=== PATIENT | female | born 1995 | race Two or more races ===

== ENCOUNTER 2020-04-18 17:28 | Outpatient (REF) | payer OTHER, SELFPAY | END 2020-04-18 17:29 | disposition home or self-care (01) | LOC: HO.LAB 17:28 | PROVIDERS: Visit Provider Internal Medicine | DX: Z20.828 Contact with and (suspected) exposure to other viral communicable diseases (principal) | CPT/HCPCS: C9803; U0003 ==

== ENCOUNTER → 2020-06-30 10:26 | Outpatient (BNVA) | payer OTHER, SELFPAY | PROVIDERS: PCP Internal Medicine; Visit Provider Obstetrics & Gynecology | DX: O36.4XX0 Maternal care for intrauterine death, not applicable or unspecified (principal) | CPT/HCPCS: 99212 ==

== ENCOUNTER 2020-09-01 14:40 | Outpatient (REF) | payer OTHER, SELFPAY ==
[2020-09-02 06:11] LABS: CT PCR NOT DETECTED (Not Detect.); NG PCR NOT DETECTED (Not Detect.)
[2020-09-03 21:57] LABS: HPV mRNA E6/E7 rflx Not Detected (Not Detected)
== END 2020-09-01 14:41 | disposition home or self-care (01) ==
LOC: HO.LAB 14:40
PROVIDERS: PCP Internal Medicine; Visit Provider Obstetrics & Gynecology
DX: Z01.419 Encounter for gynecological examination (general) (routine) without abnormal findings (principal); Z11.51 Encounter for screening for human papillomavirus (HPV); Z11.3 Encounter for screening for infections with a predominantly sexual mode of transmission; Z20.2 Contact with and (suspected) exposure to infections with a predominantly sexual mode of transmission
CPT/HCPCS: 87491; 87591; 87624; 88142

== ENCOUNTER → 2020-09-30 14:31 | Outpatient (BNVA) | payer OTHER, SELFPAY | PROVIDERS: PCP Internal Medicine; Visit Provider Obstetrics & Gynecology ==

== ENCOUNTER → 2020-11-20 08:49 | Outpatient (BNVA) | payer OTHER, SELFPAY | PROVIDERS: PCP Internal Medicine; Visit Provider Obstetrics & Gynecology | DX: O09.291 Supervision of pregnancy with other poor reproductive or obstetric history, first trimester (principal); Z3A.01 Less than 8 weeks gestation of pregnancy | CPT/HCPCS: 99212 ==

== ENCOUNTER 2020-12-01 12:55 | Outpatient (REF) | payer OTHER, SELFPAY ==
--- NOTE | ~2020-12-01 | US_ITS ---
EXAMINATION: US PELVIS AND TRANSVAGINAL. CLINICAL INFORMATION: Unsure LMP. No quants available. COMPARISON: None TECHNIQUE: Transabdominal and transvaginal imaging of pelvis is performed. FINDINGS: The uterus is anteverted with an intrauterine gestational sac visualized. The sac measures 0.64 cm corresponding to 5 weeks and 2 days. There is no visualization of pole or yolk sac. Mean sac diameter of 0.64 cm corresponding to 5 weeks and 2 days. The right ovary measures 2.8 x 2.5 x 2.8 cm with a small corpus luteum cyst measuring 2.2 x 1.9 x 1.9 cm. The left ovary measures 3.0 x 1.6 x 1.8 cm. There is a small amount of free fluid in the cul-de-sac. US/US OB pelvic and transvaginal IMPRESSION: Intrauterine gestational sac. No pole, yolk sac or heart beat seen. The gestational sac measurement corresponds to 5 weeks 2 days. Recommend follow up in 2-3 weeks.
== END 2020-12-01 12:56 | disposition home or self-care (01) ==
LOC: HO.US 12:55
PROVIDERS: Visit Provider Obstetrics & Gynecology
DX: Z34.91 Encounter for supervision of normal pregnancy, unspecified, first trimester (principal)
CPT/HCPCS: 76801; 76817

== ENCOUNTER 2020-12-02 14:41 | Outpatient (REF) | payer OTHER, SELFPAY ==
[2020-12-02 16:23] LABS: HCG Quantitative 2174 mIU/mL
[2020-12-03 06:01] LABS: CT PCR NOT DETECTED (Not Detect.); NG PCR NOT DETECTED (Not Detect.)
[2020-12-03 09:37] LABS: BV Int Neg Control Negative (Negative); BV Int Pos Control Positive (Positive)
== END 2020-12-02 14:42 | disposition home or self-care (01) ==
LOC: HO.LAB 14:41
PROVIDERS: PCP Internal Medicine; Visit Provider Advanced Practice Midwife
DX: Z11.3 Encounter for screening for infections with a predominantly sexual mode of transmission (principal); O20.0 Threatened abortion; Z20.2 Contact with and (suspected) exposure to infections with a predominantly sexual mode of transmission; N93.9 Abnormal uterine and vaginal bleeding, unspecified
CPT/HCPCS: 36415; 84702; 86850; 86900; 86901; 87480; 87491; 87510; 87591; 87660; 99212

== ENCOUNTER 2020-12-05 10:58 | Outpatient (REF) | payer OTHER, SELFPAY ==
[2020-12-05 11:56] LABS: HCG Quantitative 398 mIU/mL
== END 2020-12-05 10:59 | disposition home or self-care (01) ==
LOC: HO.LAB 10:58
PROVIDERS: PCP Internal Medicine; Visit Provider Advanced Practice Midwife
DX: O20.0 Threatened abortion (principal)
CPT/HCPCS: 36415; 84702

== ENCOUNTER → 2020-12-08 09:06 | Outpatient (BNVA) | payer OTHER, SELFPAY | PROVIDERS: PCP Internal Medicine; Visit Provider Obstetrics & Gynecology | DX: O03.9 Complete or unspecified spontaneous abortion without complication (principal) | CPT/HCPCS: 99212 ==

== ENCOUNTER 2020-12-15 11:32 | Outpatient (REF) | payer OTHER, SELFPAY ==
[2020-12-15 13:43] LABS: HCG Quantitative 14 mIU/mL
== END 2020-12-15 11:33 | disposition home or self-care (01) ==
LOC: HO.LAB 11:32
PROVIDERS: PCP Internal Medicine; Visit Provider Obstetrics & Gynecology
DX: O03.9 Complete or unspecified spontaneous abortion without complication (principal)
CPT/HCPCS: 36415; 84702

== ENCOUNTER 2020-12-18 11:14 | Outpatient (REF) | payer OTHER, SELFPAY ==
[2020-12-18 12:24] LABS: HCG Quantitative 7 mIU/mL
[2020-12-19 14:16] LABS: PTT (LAC) Screen 35 sec (< OR = 40)
== END 2020-12-18 11:15 | disposition home or self-care (01) ==
LOC: HO.LAB 11:14
PROVIDERS: Obstetrics & Gynecology; PCP Internal Medicine; Visit Provider Internal Medicine
DX: O03.9 Complete or unspecified spontaneous abortion without complication (principal); Z87.59 Personal history of other complications of pregnancy, childbirth and the puerperium
CPT/HCPCS: 36415; 84702; 85597; 85613; 85730

== ENCOUNTER 2021-03-10 10:18 | Emergency (ER) | payer OTHER, SELFPAY ==
[2021-03-10 10:56] VITALS: BP 117/80; PULSE 74; RESP 14; O2SAT 100; BMI 25.4
--- NOTE | 2021-03-10 12:25 | ED_ITS ---
HPI - Nausea/Vomiting/Diarrhea General Chief complaint: Nausea/Vomiting/Diarrhea Stated complaint: nausea Time Seen by Provider: 03/10/21 12:22 Source: patient and family (Significant other's) Mode of arrival: ambulatory Limitations: no limitations History of Present Illness HPI Narrative: 25-year-old female otherwise healthy came in for evaluation of possible food poisoning. The patient ate outside with 2 other people 2 days ago shortly after she ate she started to have nausea, nonbloody watery diarrhea, and upper abdominal discomfort, symptoms is been constant for the past 2 days, nobody else sick after the ate the same food, no recent travel, no fever, no chills. Related Data Home Medications Medication Instructions Recorded Confirmed prenat.vits,yury,[id number] 1 tab PO DAILY 09/01/20 01/14/21 Previous Rx's Medication Instructions Recorded escitalopram oxalate 10 mg tablet 10 mg PO DAILY 90 Days #90 tab 12/18/20 Allergies Allergy/AdvReac Type Severity Reaction Status Date / Time pollen Allergy Intermediate itchy Verified 01/14/21 09:14 eyes, runny nose Review of Systems Review of Systems: All other systems are reviewed and are negative Constitutional: Reports as per HPI and Reports no additional constitutional complaints Eyes: Reports as per HPI and Reports no additional eye complaints Reports system reviewed and no additional complaints, except as documented Cardiovascular: Reports as per HPI and Reports no additional cardiovascular complaints Respiratory: Reports as per HPI and Reports no additional respiratory complaints Gastrointestinal: Reports as per HPI and Reports no additional gastrointestinal complaints Genitourinary: Reports no additional female genitourinary complaints Musculoskeletal: Reports no additional musculoskeletal complaints Skin/Breast: Reports system reviewed and no additional complaints, except as docu Psychiatric: Reports no additional psychiatric complaints Endocrine: Reports no additional endocrine complaints Hematologic/Lymphatic: Reports no additional hematologic/lymphatic complaints Allergic/Immunologic: Reports no additional allergic/immunologic complaints Reports system reviewed and no additional complaints, except as documented and Reports Abnormal speech present [facility] Past Medical History Medical History demise VENANCIO (generalized anxiety disorder) History of multiple miscarriages Insomnia Moderate major depression, single episode Threatened Surgical History H/O dilation and curettage Family History Family History Mother Fibromyalgia Father No problems noted. Social History Social History Housing: Apartment Alcohol intake: never Patient Tobacco Use Status: Never used Tobacco e-Cigarette/Vaping Use: Never Used Second Hand Smoke Exposure: No Use of substances other than those prescribed or required for medical reasons: No Advance Directives: No Patient : No service: No Current occupational status: employed Current occupational exposures/hazards: No Physical Exam Vital Signs: Vital Signs: Last Vital Signs Pulse 74 03/10/21 10:56 Resp 14 03/10/21 10:56 BP 117/80 03/10/21 10:56 Pulse Ox 100 03/10/21 10:56 Body Mass Index 25.4 Vital signs have been reviewed as appeared to be correct. Blood pressure normal. Heart rate normal. Respiration rate normal. Temperature normal. Oxygen saturation normal. Appearance: Alert. Oriented X3. No acute distress. Head: Normal external exam. Normocephalic. Atraumatic. No [place] signs noted. No raccoon eyes noted Eyes: PERRLA. EOMI. Conjunctiva and sclera normal. Eyelids normal. ENT: TM's Normal. Pharynx normal. Uvula midline. Moist mucous membranes. No trismus noted. No drooling noted. No muffled voice noted. Neck: Normal inspection. Neck supple. FROM. No adenopathy. Thyroid Normal. No meningeal signs. No neck mass noted. CVS: Normal heart rate and rhythm. Heart sound normal. No murmurs noted. Pulses normal throughout. Respiratory: No respiratory distress. Painless inspiration. Breath sounds normal. No wheezes/rales/rhonchi noted. Chest nontender. No accessory muscle usage noted or decreased air movement noted. Abdomen: Soft, mild epigastric tenderness, no rebound tenderness, no guarding. Bowel sounds normal in all 4 quadrants. No distention noted. No organomegaly noted. No visible injury noted. Back: No CVA tenderness. Full range of motion noted. Skin: Skin warm and dry. Normal skin color. Normal skin turgor. No rashes/lesions/lacerations noted. Extremities: No lower extremity edema. Extremities exhibit normal range of motion. Extremities nontender. Neuro: Oriented X 3. Cranial nerve exam: II-XII are grossly intact No motor deficit. No sensory deficit. Reflexes normal. Course Course Course Narrative: Assessment and plan. 25-year-old female came in for evaluation of abdominal pain and nausea, vomiting, diarrhea after eating outside for possible food poisoning. Patient received IV fluids/Zofran/Pepcid/GI cocktail, patient now feels better, able to tolerate p.o. intake. MDM - Nausea/Vomiting/Diarrhea Medical Records Attestation: I reviewed the patient's medical records. Lab Data Attestation: I reviewed the patient's lab results. Result diagrams: 03/10/21 12:47 03/10/21 12:47 Labs: Lab Results 03/10/21 03/10/21 03/10/21 Range/Units 12:47 12:47 12:47 WBC 6.7 (4.8-10.8) X10*3/uL RBC 5.02 (4.20-5.50) X10*6/uL Hgb 14.9 (12.0-16.0) g/dl Hct 44.4 (37.0-47.0) % MCV 88.4 (80.0-98.0) fL MCH 29.7 (27.0-33.0) pg MCHC 33.6 (31.0-35.0) g/dl RDW 11.8 (11.0-16.0) % Plt Count 181 (160-400) X10*3/uL MPV 9.9 (9.4-12.3) fL Immature Gran % (Auto) 0.3 (0.0-0.4) % Neut % (Auto) 70.0 (45-73) % Lymph % (Auto) 24.1 (20-40) % [place] % (Auto) 4.6 (2-11) % Eos % (Auto) 0.7 (0-4) % Baso % (Auto) 0.3 (0-2) % Lymph # (Auto) 1.6 (1.2-4.9) X10*3/uL [place] # (Auto) 0.3 (0.1-1.2) X10*3/uL Eos # (Auto) 0.1 (0.0-0.4) X10*3/uL Baso # (Auto) 0.0 (0.0-0.2) X10*3/uL Abs Immat Gran (auto) 0.02 (0.00-0.03) X10*3/uL Absolute Neuts (auto) 4.7 (2.0-8.3) x10*3/uL Absolute Nucleated RBC 0.000 (0.0-0.012) X10*3/uL Nucleated RBC % (auto) 0.0 (0.0-0.2) /100WBC Smear Tech's Comments VERIFIED Sodium 139 (135-145) mmol/L Potassium 4.3 (3.3-5.1) mmol/L Chloride 105 (96-108) mmol/L Carbon Dioxide 22 (22-29) mmol/L Anion Gap 16 (12-20) BUN 8 L (9-16) mg/dL Creatinine 0.79 (0.5-1.4) mg/dL Estim Creat Clear Calc 91.4 Estimated GFR > 60 Random Glucose 91 (60-115) mg/dL Calcium 9.8 (8.4-10.2) mg/dL Total Bilirubin 1.2 H (0.0-1.0) mg/dL Direct Bilirubin 0.4 (0.0-0.5) mg/dL AST 20 (5-31) U/L ALT 19 (0-31) U/L Alkaline Phosphatase 69 (39-117) U/L Total Protein 8.1 H (6.5-8.0) g/dL Albumin 4.8 (3.5-5.0) g/dL Lipase 20 (8-78) U/L Urine Color Urine Appearance Urine pH (5.0-8.0) Ur Specific [place] (1.005-1.025) Urine Protein (NEG-TRACE) MG/DL Urine Glucose (UA) (NEG) MG/DL Urine Ketones (NEG) MG/DL Urine Blood (NEG) Urine Nitrite (NEG) Ur Leukocyte Esterase (NEG) COVID-19 (AXEL) Negative (Negative) COVID-19 Clin Com See Note 03/10/21 Range/Units 12:47 WBC (4.8-10.8) X10*3/uL RBC (4.20-5.50) X10*6/uL Hgb (12.0-16.0) g/dl Hct (37.0-47.0) % MCV (80.0-98.0) fL MCH (27.0-33.0) pg MCHC (31.0-35.0) g/dl RDW (11.0-16.0) % Plt Count (160-400) X10*3/uL MPV (9.4-12.3) fL Immature Gran % (Auto) (0.0-0.4) % Neut % (Auto) (45-73) % Lymph % (Auto) (20-40) % [place] % (Auto) (2-11) % Eos % (Auto) (0-4) % Baso % (Auto) (0-2) % Lymph # (Auto) (1.2-4.9) X10*3/uL [place] # (Auto) (0.1-1.2) X10*3/uL Eos # (Auto) (0.0-0.4) X10*3/uL Baso # (Auto) (0.0-0.2) X10*3/uL Abs Immat Gran (auto) (0.00-0.03) X10*3/uL Absolute Neuts (auto) (2.0-8.3) x10*3/uL Absolute Nucleated RBC (0.0-0.012) X10*3/uL Nucleated RBC % (auto) (0.0-0.2) /100WBC Smear Tech's Comments Sodium (135-145) mmol/L Potassium (3.3-5.1) mmol/L Chloride (96-108) mmol/L Carbon Dioxide (22-29) mmol/L Anion Gap (12-20) BUN (9-16) mg/dL Creatinine (0.5-1.4) mg/dL Estim Creat Clear Calc Estimated GFR Random Glucose (60-115) mg/dL Calcium (8.4-10.2) mg/dL Total Bilirubin (0.0-1.0) mg/dL Direct Bilirubin (0.0-0.5) mg/dL AST (5-31) U/L ALT (0-31) U/L Alkaline Phosphatase (39-117) U/L Total Protein (6.5-8.0) g/dL Albumin (3.5-5.0) g/dL Lipase (8-78) U/L Urine Color YELLOW Urine Appearance CLEAR Urine pH 7.5 (5.0-8.0) Ur Specific [place] 1.010 (1.005-1.025) Urine Protein NEG (NEG-TRACE) MG/DL Urine Glucose (UA) NEG (NEG) MG/DL Urine Ketones NEG (NEG) MG/DL Urine Blood NEG (NEG) Urine Nitrite NEG (NEG) Ur Leukocyte Esterase NEG (NEG) COVID-19 (AXEL) (Negative) COVID-19 Clin Com Discharge Plan Discharge Clinical Impression: Gastroenteritis Patient Disposition: Home, Self-Care Instructions: Gastroenteritis (ED) Prescriptions: No Action escitalopram oxalate 10 mg tablet 10 mg PO DAILY 90 Days Qty: 90 RF: 1 prenat.vits,yury,[id number] Tablet 1 tab PO DAILY RF: 0 Referrals: Amelie Jacobsen MD [Primary Care Provider] - 2 days Stand Alone Forms: Work/School Release
[2021-03-10 12:59] LABS: Imm Gran Abs Auto 0.02 X10*3/uL (0.00-0.03); Imm Gran Pct Auto 0.3 % (0.0-0.4); MANUAL DIFF FLAG SCAN; Monocytes Percent Auto 4.6 % (2-11); PLT CLUMP 1; SCAN SMEAR FLAG 1
[2021-03-10 13:01] LABS: Basophils Percent Auto 0.3 % (0-2); Eosinophils Absolute Auto 0.1 X10*3/uL (0.0-0.4); Eosinophils Percent Auto 0.7 % (0-4); Hematocrit 44.4 % (37.0-47.0); Hemoglobin 14.9 g/dl (12.0-16.0); Lymphocytes Absolute Auto 1.6 X10*3/uL (1.2-4.9); Lymphocytes Percent Auto 24.1 % (20-40); Mean Corpuscular HGB Conc 33.6 g/dl (31.0-35.0); Mean Corpuscular Hemoglobin 29.7 pg (27.0-33.0); Mean Corpuscular Volume 88.4 fL (80.0-98.0); Mean Platelet Volume 9.9 fL (9.4-12.3); Monocytes Absolute Auto 0.3 X10*3/uL (0.1-1.2); Neutrophils Absolute Auto 4.7 x10*3/uL (2.0-8.3); Platelet Count 181 X10*3/uL (160-400); Red Blood Count 5.02 X10*6/uL (4.20-5.50); Red Cell Distribution Width 11.8 % (11.0-16.0); White Blood Count 6.7 X10*3/uL (4.8-10.8)
[2021-03-10 13:20] LABS: Appearance Urine CLEAR; Color Urine YELLOW; Glucose Urine UA NEG (NEG); Leukocyte Esterase Urine NEG (NEG); Nitrite Urine NEG (NEG); PH 7.5 (5.0-8.0); Urine Blood NEG (NEG); Urine Ketones NEG (NEG); Urine Protein NEG (NEG-TRACE)
[2021-03-10 13:23] LABS: SLIDE REVIEW VERIFIED
[2021-03-10] MEDS: Lidocaine HCl Viscous 2 % 15 ML SOLUTION MUCOUS MEM (13:27)
[2021-03-10] MEDS: 0.9 % Sodium Chloride 1,000 ML 999 ML IVCONT (13:27)
[2021-03-10] MEDS: Famotidine/PF 20 MG/2 ML VIAL IVPUSH (13:27)
[2021-03-10] MEDS: Magnesium Hydrox/Alum Hydrox 30 ML ORAL.SUSP PO (13:27)
[2021-03-10 13:38] LABS: Alanine Aminotransferase 19 U/L (0-31); Albumin Level 4.8 g/dL (3.5-5.0); Alkaline Phosphatase 69 U/L (39-117); Anion Gap 16 (12-20); Aspartate Amino Transferase 20 U/L (5-31); Bilirubin Direct 0.4 mg/dL (0.0-0.5); Bilirubin Total 1.2 mg/dL (0.0-1.0); Blood Urea Nitrogen 8 mg/dL (9-16); Calcium 9.8 mg/dL (8.4-10.2); Carbon Dioxide 22 mmol/L (22-29); Chloride 105 mmol/L (96-108); Creatinine Clr Calc Pharmacy 91.4; Estimated Glomerular Filt Rate > 60; Glucose Random 91 mg/dL (60-115); Lipase 20 U/L (8-78); Potassium 4.3 mmol/L (3.3-5.1); Sodium 139 mmol/L (135-145); Total Protein 8.1 g/dL (6.5-8.0)
[2021-03-10 13:47] LABS: COVID-19 Test Negative (Negative); IDNOW Serial# 9DD0AD1C
== END 2021-03-10 14:35 | disposition home or self-care (01) ==
PROVIDERS: Emergency Provider Emergency Medicine; PCP Internal Medicine
DX: K52.9 Noninfective gastroenteritis and colitis, unspecified (principal); R11.2 Nausea with vomiting, unspecified; R10.10 Upper abdominal pain, unspecified; Z20.822 Contact with and (suspected) exposure to COVID-19
CPT/HCPCS: 36415; 80048; 80076; 81003; 83690; 85025; 87635; 96361; 96374; 99284

== ENCOUNTER 2021-04-02 12:51 | Outpatient (REF) | payer OTHER, SELFPAY ==
[2021-04-02 14:08] LABS: Thyroid Stimulating Hormone 0.52 uIU/mL (0.32-4.0); Vitamin D 25-OH Total 30.3 ng/mL (>30)
== END 2021-04-02 12:52 | disposition home or self-care (01) ==
LOC: HO.LAB 12:51
PROVIDERS: PCP Internal Medicine; Visit Provider Nurse Practitioner Family
DX: R53.83 Other fatigue (principal)
CPT/HCPCS: 36415; 82306; 84443

== ENCOUNTER 2021-06-02 12:19 | Emergency (ER) | payer OTHER, SELFPAY | END 2021-06-02 13:22 | disposition left against medical advice (07) | PROVIDERS: Emergency Provider Emergency Medicine; PCP Internal Medicine | DX: F41.9 Anxiety disorder, unspecified (principal); R11.0 Nausea ==

== ENCOUNTER → 2021-06-03 11:38 | Outpatient (REF) | payer OTHER, SELFPAY ==
--- NOTE | 2021-06-03 11:48 | ECG_ITS ---
Test Reason : r07.89 Blood Pressure : / mmHG Vent. Rate : 086 BPM Atrial Rate : 086 BPM P-R Int : 106 ms QRS Dur : 078 ms QT Int : 370 ms P-R-T Axes : 002 078 058 degrees QTc Int : 442 ms Sinus rhythm with short [place] Otherwise normal ECG No previous ECGs available Referred By: Kita Menendez Electronically Signed By:EDWARD DEGROOT
== END ==
LOC: HO.CARD 11:38
PROVIDERS: PCP Internal Medicine; Visit Provider Nurse Practitioner Family
DX: R07.89 Other chest pain (principal)
CPT/HCPCS: 93005

== ENCOUNTER 2021-07-01 07:38 | Emergency (ER) | payer OTHER, SELFPAY ==
--- NOTE | 2021-07-01 07:41 | ED_ITS ---
HPI - Anxiety General Chief Complaint: Anxiety Stated Complaint: anxiety/shakiness/chest tightness Time Seen by Provider: 07/01/21 07:40 Source: patient and old records reviewed Mode of arrival: ambulatory Limitations: no limitations History of Present Illness HPI narrative: has therapist on setraline 25mg daily started 06/09 complaint: anxiety Onset (ago): week(s) Symptoms: palpitations and sense of impending doom Severity: severe Quality: worsening Place: home History of similar episodes: Yes Provoking factors: emotional stress and other (very difficult last two years with IUFD and miscarriages) Relieving factors: nothing Exacerbating factors: thinking about event Associated symptoms: palpitations Related Data Previous Rx's Medication Instructions Recorded omeprazole 20 mg capsule,delayed 20 mg PO DAILY 28 Days #28 cap 05/19/21 release hydroxyzine HCl 10 mg tablet 10 mg PO BEDTIME #7 tab 06/09/21 sertraline 25 mg tablet (Zoloft) 25 mg PO DAILY #30 tab 06/09/21 lorazepam 0.5 mg tablet (Ativan) 0.5 mg PO BEDTIME PRN #7 tab 07/01/21 Allergies Allergy/AdvReac Type Severity Reaction Status Date / Time pollen Allergy Intermediate itchy Verified 06/03/21 10:43 eyes, runny nose Review of Systems Review of Systems: Constitutional : No Fever, No Chills ENT/Mouth : No Ear Pain, No Nasal Congestion, No sore throat Eyes: No Eye Pain, No Swelling, No Redness Cardiovascular : No Chest Pain, No SOB, pos palpitations Respiratory : No Cough, No Sputum, No Dyspnea Gastrointestinal : No Nausea, No Vomiting, No Diarrhea, No Hematochezia, No Melena Genitourinary : No Dysuria, No Urinary Frequency, No Hematuria Musculoskeletal : No Myalgias Skin : No Skin Lesions, No rash Neuro : No Weakness, No Numbness, No Paresthesias, No Dizziness, No Headache Psych : positive Anxiety, positive Depression, no SI/HI Heme/Lymph: No Lymphadenopathy Endocrine : No Polyuria, No Polydipsia All other systems reviewed and are negative [facility] Past Medical History Attestation statement: The following information was validated with the patient. Medical History Chronic diarrhea demise VENANCIO (generalized anxiety disorder) History of multiple miscarriages Insomnia Moderate major depression, single episode Threatened Surgical History H/O dilation and curettage Family History Family History Mother Fibromyalgia Father No problems noted. Social History Social History Housing: Apartment Alcohol intake: never Patient Tobacco Use Status: Never used Tobacco e-Cigarette/Vaping Use: Never Used Second Hand Smoke Exposure: No Advance Directives: No Advance Directives Information Provided: No service: No Current occupational status: employed Current occupational exposures/hazards: No Cognitive needs: No Hearing needs: No Vision needs: No Physical Exam Vital Signs: Vital Signs: Last Vital Signs Pulse 90 07/01/21 07:46 Resp 18 07/01/21 07:46 BP 127/87 07/01/21 07:46 Pulse Ox 100 07/01/21 07:46 BMI result Body Mass Index 22.1 Appearance: Alert. Oriented X3. No acute distress. Tearful and anxious but using breathing coping techniques Eyes: Pupils equal, round and reactive to light. ENT: Pharynx normal. Neck: Normal inspection. Neck supple. CVS: Normal heart rate and rhythm. Pulses normal. Respiratory: No respiratory distress. Breath sounds normal. Abdomen: Soft and nontender. Skin: Skin warm and dry. Normal skin color. Normal skin turgor. Extremities: No lower extremity edema. No calf ttp Neuro: Oriented X 3. No motor deficit. No sensory deficit. CN 2-12 intact Course Course Course Narrative: outpatient partial program 07/07 11am MDM - Anxiety MDM Narrative Medical decision making narrative: 25 yo female with hx of VENANCIO who has had pretty significant issues the last two years including IUFD at 20 weeks, subsequent miscarriage she does have a therapist but she notes her anxiety is so severe it is affecting every aspect of her life and she is scared to leave her home at times. She is on sertraline 25mg daily since 06/09. At this time given the severity of her anxiety and that she is doing the right things on an outpatient basis I will offer CARE team for possible inpatient vs partial program. She denies SI. Lab Data Labs: Lab Results 07/01/21 07/01/2107/01/22 Range/Units 07:57 07:57 07:58 Urine Test NEGATIVE (NEGATIVE) Urine Opiates Screen Not Detected (Not Detect) Urine Fentanyl Screen Not Detected (Not Detect) Ur Barbiturates Screen Not Detected (Not Detect) Ur Phencyclidine Scrn Not Detected (Not Detect) Ur Amphetamines Screen Not Detected (Not Detect) U Benzodiazepines Scrn Not Detected (Not Detect) Urine Cocaine Screen Not Detected (Not Detect) U Marijuana (THC) Screen Not Detected (Not Detect) COVID-19 (AXEL) Negative (Negative) COVID-19 Clin Com See Note Discharge Plan Discharge Clinical Impression: VENANCIO (generalized anxiety disorder) Patient Disposition: Home, Self-Care Instructions: Anxiety (ED) Additional Instructions: return to ED for any worsening symptoms or concerns appointment partial program 07/07 11am Prescriptions: New lorazepam [Ativan] 0.5 mg tablet 0.5 mg PO BEDTIME PRN (Reason: anxiety) Qty: 7 0RF No Action omeprazole 20 mg capsule,delayed release(DR/EC) 20 mg PO DAILY 28 Days Qty: 28 3RF sertraline [Zoloft] 25 mg tablet 25 mg PO DAILY Qty: 30 0RF hydroxyzine HCl 10 mg tablet 10 mg PO BEDTIME Qty: 7 0RF Stand Alone Forms: Work/School Release
[2021-07-01 07:46] VITALS: BP 127/87; PULSE 90; RESP 18; O2SAT 100; BMI 22.1
--- NOTE | 2021-07-01 07:59 | PC.NURSE ---
Pt comes in with complaints of anxiety and impending doom, pt is &Ox3, clearly anxious. Sees a therapist regularly, plan for PO atarax and care consult, denies any feelings of self harm at this time. Call hammer within reach. Will continue to monitor.
[2021-07-01 08:07] LABS: UPreg QC Valid YES; Urine Pregnancy NEGATIVE (NEGATIVE)
[2021-07-01 08:20] LABS: COVID-19 Test Negative (Negative); IDNOW Serial# 16C4AD1C
[2021-07-01 08:23] LABS: Amphetamine Screen Urine Not Detected (Not Detect); Barbiturates, Urine Not Detected (Not Detect); Benzodiazepines Screen Urine Not Detected (Not Detect); Cannabinoid Screen Urine Not Detected (Not Detect); Cocaine Screen Urine Not Detected (Not Detect); Fentanyl, urine Not Detected (Not Detect); Opiate Screen Urine Not Detected (Not Detect); Phencyclidine Screen Urine Not Detected (Not Detect)
[2021-07-01] MEDS: hydrOXYzine HCL 10 MG TABLET PO (08:24)
--- NOTE | 2021-07-01 11:15 | PC.NURSE ---
Pt remains anxious, saw care team. Given snacks as pt states she is nauseas. Call hammer within place, will continue to monitor.
[2021-07-01] MEDS: LORazepam 0.5 MG TABLET PO (11:32)
--- NOTE | 2021-07-01 13:04 | MHC.CARE ---
0900 CARE Team met with patient in main ED bed 20 who presented to the ED this morning with severe anxiety. She was tearful and trembling as she described how debilitated she has become due to anxiety symptoms and frequent panic attacks, is struggling at work, isolating, becoming depressed, unable to sleep and always afraid of when she will have another panic attack and said she feels that she will never be the same. Patient has suffered the loss of two pregnancies in the last two years, does have a supportive family and a therapist but said those things are only helpful to a point. Was recently prescribed 10mg of Atarax but has been too afraid to take it not knowing how it would make her feel, did receive that dose here with some effect. Did not appear to be med seeking but was given 1mg of Ativan which made her feel sleepy. Patient's boyfriend at bedside appeared supportive, he said that he often helps by talking her through breathing techniques. Provided some psychoeducation regarding anxiety and panic attacks which was well received. 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 Partial Hospitalized is recommended, discussed the hours and the expectations of the program which patient wants to try, she is willing to take leave from he job and said she will do anything necessary to get her life back and feel like herself. Appointment for PHP intake is 07/07/21 at 11:00 am
== END 2021-07-01 12:38 | disposition home or self-care (01) ==
PROVIDERS: Emergency Provider Emergency Medicine; PCP Internal Medicine
DX: F41.1 Generalized anxiety disorder (principal); R00.2 Palpitations; Z20.822 Contact with and (suspected) exposure to COVID-19; N96 Recurrent pregnancy loss; Z87.59 Personal history of other complications of pregnancy, childbirth and the puerperium; Z79.899 Other long term (current) drug therapy
CPT/HCPCS: 80307; 81025; 87635; 99284

== ENCOUNTER 2021-07-07 11:24 | Outpatient (RCR) | payer OTHER, SELFPAY | END 2021-07-07 12:40 | disposition left against medical advice (07) | LOC: HO.PHPA 11:24 | PROVIDERS: Visit Provider Psychiatry & Neurology Psychiatry | DX: F32.A Depression, unspecified (principal) ==

== ENCOUNTER 2021-07-09 14:38 | Outpatient (REF) | payer OTHER, SELFPAY ==
[2021-07-09 16:14] LABS: MANUAL DIFF FLAG NO
[2021-07-09 16:33] LABS: Basophils Percent Auto 0.5 % (0-2); Eosinophils Absolute Auto 0.1 X10*3/uL (0.0-0.4); Eosinophils Percent Auto 0.7 % (0-4); Hematocrit 41.4 % (37.0-47.0); Hemoglobin 13.7 g/dl (12.0-16.0); Imm Gran Abs Auto 0.02 X10*3/uL (0.00-0.03); Imm Gran Pct Auto 0.2 % (0.0-0.4); Lymphocytes Percent Auto 25.2 % (20-40); Mean Corpuscular HGB Conc 33.1 g/dl (31.0-35.0); Mean Corpuscular Hemoglobin 29.5 pg (27.0-33.0); Mean Corpuscular Volume 89.2 fL (80.0-98.0); Mean Platelet Volume 9.5 fL (9.4-12.3); Monocytes Absolute Auto 0.5 X10*3/uL (0.1-1.2); Monocytes Percent Auto 5.9 % (2-11); Neutrophils Absolute Auto 5.5 x10*3/uL (2.0-8.3); Neutrophils Percent Auto 67.5 % (45-73); Platelet Count 352 X10*3/uL (160-400); Red Blood Count 4.64 X10*6/uL (4.20-5.50); Red Cell Distribution Width 11.9 % (11.0-16.0); White Blood Count 8.1 X10*3/uL (4.8-10.8)
[2021-07-09 17:08] LABS: Alanine Aminotransferase 22 U/L (0-31); Albumin Level 4.6 g/dL (3.5-5.0); Alkaline Phosphatase 81 U/L (39-117); Anion Gap 11 (12-20); Aspartate Amino Transferase 21 U/L (5-31); Bilirubin Total 0.8 mg/dL (0.0-1.0); Blood Urea Nitrogen 13 mg/dL (9-16); Carbon Dioxide 28 mmol/L (22-29); Chloride 102 mmol/L (96-108); Estimated Glomerular Filt Rate > 60; Glucose Random 88 mg/dL (60-115); Sodium 136 mmol/L (135-145); Total Protein 7.6 g/dL (6.5-8.0)
== END 2021-07-09 14:39 | disposition home or self-care (01) ==
LOC: HO.LAB 14:38
PROVIDERS: PCP Internal Medicine; Referring Provider Nurse Practitioner Family; Visit Provider Nurse Practitioner
DX: K21.9 Gastro-esophageal reflux disease without esophagitis (principal); R10.13 Epigastric pain; R19.7 Diarrhea, unspecified
CPT/HCPCS: 36415; 80053; 85025; 99202

== ENCOUNTER 2021-07-14 14:47 | Outpatient (REF) | payer OTHER, SELFPAY ==
--- NOTE | ~2021-07-14 | XR_ITS ---
EXAMINATION: XR ABDOMEN KUB CLINICAL INDICATION: Calculus of kidney COMPARISON: None TECHNIQUE: AP view of the abdomen. FINDINGS: There is scattered stool and gas seen throughout the colon without any distention. No radiopaque renal calculi. No organomegaly. No gross bony abnormality. XR/XR KUB IMPRESSION: No radiopaque urolith visualized. Mild constipation.
== END 2021-07-14 14:48 | disposition home or self-care (01) ==
LOC: HO.XRAY 14:47
PROVIDERS: PCP Internal Medicine; Visit Provider Internal Medicine
DX: N20.0 Calculus of kidney (principal)
CPT/HCPCS: 74018

== ENCOUNTER 2021-07-27 12:06 | Outpatient (REF) | payer OTHER, SELFPAY | END 2021-07-27 12:07 | disposition home or self-care (01) | LOC: HO.LNP 12:06 | PROVIDERS: Visit Provider Nurse Practitioner | DX: K21.9 Gastro-esophageal reflux disease without esophagitis (principal); R10.13 Epigastric pain | CPT/HCPCS: 87338 ==

== ENCOUNTER 2021-08-04 07:56 | Outpatient (REF) | payer OTHER, SELFPAY ==
--- NOTE | ~2021-08-04 | US_ITS ---
EXAMINATION: US ABDOMEN COMPLETE CLINICAL INFORMATION: Gastroesophageal reflux disease without esophagitis. COMPARISON: XR abdomen KUB 07/14/2021. TECHNIQUE: Real-time imaging of the abdominal viscera. FINDINGS: PANCREAS: Normal. ABDOMINAL AORTA: The proximal, mid, and distal segments are normal in caliber. INFERIOR VENA CAVA: Visualized portions are normal. LIVER: Normal. The liver is normal in size. The liver contour is normal. Parenchymal echogenicity is normal. No focal hepatic lesion. There is no intrahepatic biliary duct dilatation seen. GALLBLADDER: Normal. The gallbladder is physiologically distended without evidence of stones, sludge, polyps, wall thickening or pericholecystic fluid. COMMON BILE DUCT: Normal in caliber measuring 0.3 cm in diameter. RIGHT KIDNEY: Normal. No hydronephrosis. No renal calculi or focal parenchymal lesions. The kidney measures 10.0 cm in maximum dimension. LEFT KIDNEY: Normal. No hydronephrosis. No renal calculi or focal parenchymal lesions. The kidney measures 10.0 cm in maximum dimension. SPLEEN: Normal. The spleen measures 9.2 cm in maximum dimension. FREE FLUID: None. US/US abdomen complete IMPRESSION: Unremarkable complete abdomen ultrasound.
== END 2021-08-04 07:57 | disposition home or self-care (01) ==
LOC: HO.US 07:56
PROVIDERS: PCP Internal Medicine; Visit Provider Nurse Practitioner
DX: K21.9 Gastro-esophageal reflux disease without esophagitis (principal); R10.13 Epigastric pain
CPT/HCPCS: 76700

== ENCOUNTER 2021-09-23 13:17 | Outpatient (REF) | payer OTHER, SELFPAY ==
[2021-09-23 14:50] LABS: HCG Quantitative 7695 mIU/mL
== END 2021-09-23 13:18 | disposition home or self-care (01) ==
LOC: HO.LAB 13:17
PROVIDERS: PCP Internal Medicine; Visit Provider Advanced Practice Midwife
DX: N92.6 Irregular menstruation, unspecified (principal); N96 Recurrent pregnancy loss
CPT/HCPCS: 36415; 81025; 84702; 99212

== ENCOUNTER 2021-10-08 11:26 | Outpatient (REF) | payer OTHER, SELFPAY ==
--- NOTE | ~2021-10-08 | US_ITS ---
EXAMINATION: US OBSTETRICAL ULTRASOUND CLINICAL INFORMATION: Irregular menstruation. Check size and dates. COMPARISON: None. LMP: 08/18/2021. Gestational age by maternal dates is by dates 7 weeks 2 days. Estimated date of delivery by maternal dates is 05/25/2022. TECHNIQUE: Transabdominal first trimester OB ultrasound FINDINGS: There is a single intrauterine gestational sac with visible yolk sac, embryo/fetus, and cardiac activity. There is no significant subchorionic hemorrhage or hematoma. HR: 158 beats per minute. CRL (crown rump length): 1 cm (7 weeks 1 day +/- 4 days). CATALINA (estimated date of delivery): 05/26/2022 +/- 4 days. MATERNAL ADNEXA: The right maternal ovary not seen. The left maternal ovary measures 3 x 2.5 x 2.5 cm. There is no significant maternal adnexal mass. No maternal pelvic ascites. US/US OB <= 14 weeks fetus IMPRESSION: 1. Single intrauterine gestation with ultrasound gestational age of 7 weeks 1 day +/- 4 days. 2. Estimated date of delivery is 05/26/2022 +/- 4 days. 3. No maternal adnexal mass or pelvic ascites.
== END 2021-10-08 11:27 | disposition home or self-care (01) ==
LOC: HO.HMGCX 11:26
PROVIDERS: PCP Internal Medicine; Visit Provider Advanced Practice Midwife
DX: N92.6 Irregular menstruation, unspecified (principal)
CPT/HCPCS: 76801

== ENCOUNTER 2022-06-21 17:12 | Outpatient (REF) | payer OTHER, SELFPAY ==
[2022-06-21 17:30] LABS: MANUAL DIFF FLAG NO
[2022-06-21 17:54] LABS: Basophils Percent Auto 0.4 % (0-2); Eosinophils Absolute Auto 0.1 X10*3/uL (0.0-0.4); Eosinophils Percent Auto 0.8 % (0-4); Hematocrit 38.7 % (37.0-47.0); Hemoglobin 13.4 g/dl (12.0-16.0); Imm Gran Abs Auto 0.02 X10*3/uL (0.00-0.03); Imm Gran Pct Auto 0.2 % (0.0-0.4); Lymphocytes Absolute Auto 2.4 X10*3/uL (1.2-4.9); Lymphocytes Percent Auto 24.5 % (20-40); Mean Corpuscular HGB Conc 34.6 g/dl (31.0-35.0); Mean Corpuscular Hemoglobin 30.7 pg (27.0-33.0); Mean Corpuscular Volume 88.6 fL (80.0-98.0); Mean Platelet Volume 9.2 fL (9.4-12.3); Monocytes Absolute Auto 0.7 X10*3/uL (0.1-1.2); Monocytes Percent Auto 7.1 % (2-11); Neutrophils Absolute Auto 6.6 x10*3/uL (2.0-8.3); Platelet Count 352 X10*3/uL (160-400); Red Blood Count 4.37 X10*6/uL (4.20-5.50); Red Cell Distribution Width 11.7 % (11.0-16.0); White Blood Count 9.8 X10*3/uL (4.8-10.8)
[2022-06-21 18:37] LABS: Iron 83 mcg/dL (30-160); Percent Iron Saturation 27 % (15-50); Total Iron Binding Capacity 304 mcg/dL (228-428); Unsaturated Iron Binding 221 ug/dL
[2022-06-21 18:52] LABS: Thyroid Stimulating Hormone 0.41 uIU/mL (0.32-4.0)
== END 2022-06-21 17:13 | disposition home or self-care (01) ==
LOC: HO.LAB 17:12
PROVIDERS: PCP Internal Medicine; Visit Provider Internal Medicine
DX: R53.83 Other fatigue (principal); E55.9 Vitamin D deficiency, unspecified; D64.9 Anemia, unspecified
CPT/HCPCS: 36415; 82306; 83540; 84443; 85025

== ENCOUNTER → 2022-08-13 14:45 | Outpatient (BNVA) | payer OTHER, SELFPAY | PROVIDERS: PCP Internal Medicine; Visit Provider Nurse Practitioner | DX: R10.13 Epigastric pain (principal); K21.9 Gastro-esophageal reflux disease without esophagitis | CPT/HCPCS: 99212 ==

== ENCOUNTER 2022-10-12 13:09 | Outpatient (REF) | payer OTHER, SELFPAY ==
[2022-10-12 13:22] LABS: MANUAL DIFF FLAG NO
[2022-10-12 14:26] LABS: Basophils Percent Auto 0.4 % (0-2); Eosinophils Percent Auto 0.3 % (0-4); Hematocrit 39.5 % (37.0-47.0); Imm Gran Abs Auto 0.02 X10*3/uL (0.00-0.03); Imm Gran Pct Auto 0.3 % (0.0-0.4); Lymphocytes Absolute Auto 1.8 X10*3/uL (1.2-4.9); Lymphocytes Percent Auto 23.4 % (20-40); Mean Corpuscular HGB Conc 32.9 g/dl (31.0-35.0); Mean Corpuscular Hemoglobin 28.5 pg (27.0-33.0); Mean Corpuscular Volume 86.6 fL (80.0-98.0); Mean Platelet Volume 10.1 fL (9.4-12.3); Monocytes Absolute Auto 0.5 X10*3/uL (0.1-1.2); Monocytes Percent Auto 6.8 % (2-11); Neutrophils Absolute Auto 5.3 x10*3/uL (2.0-8.3); Neutrophils Percent Auto 68.8 % (45-73); Platelet Count 293 X10*3/uL (160-400); Red Blood Count 4.56 X10*6/uL (4.20-5.50); Red Cell Distribution Width 12.2 % (11.0-16.0); White Blood Count 7.8 X10*3/uL (4.8-10.8)
[2022-10-12 14:53] LABS: Alanine Aminotransferase 12 U/L (0-31); Albumin Level 4.4 g/dL (3.5-5.0); Alkaline Phosphatase 80 U/L (39-117); Anion Gap 13 (12-20); Aspartate Amino Transferase 15 U/L (5-31); Bilirubin Total 1.4 mg/dL (0.0-1.0); Blood Urea Nitrogen 11 mg/dL (9-16); Calcium 9.5 mg/dL (8.4-10.2); Carbon Dioxide 23 mmol/L (22-29); Chloride 107 mmol/L (96-108); Estimated Glomerular Filt Rate > 60; Glucose Fasting 76 mg/dL (60-99); Potassium 3.6 mmol/L (3.3-5.1); Sodium 139 mmol/L (135-145); Total Protein 7.4 g/dL (6.5-8.0)
== END 2022-10-12 13:10 | disposition home or self-care (01) ==
LOC: HO.LAB 13:09
PROVIDERS: PCP Internal Medicine; Visit Provider Internal Medicine
DX: R42 Dizziness and giddiness (principal)
CPT/HCPCS: 36415; 80053; 85025

== ENCOUNTER 2022-12-21 14:22 | Outpatient (AMB) | payer OTHER, SELFPAY ==
--- NOTE | 2022-12-21 14:25 | MHC.PC.OV ---
Vital Signs 12/21/22 14:26 Height 5 ft 2 in Weight 139 lb BMI 25.4 BP 118/70 Blood Pressure Location Lt brachial Position Sitting Intake Visit Reasons: Annual Exam Intake Note: Patient here for an annual physical exam [employer] Buffer Required: No Accompanied by: Child Allergies pollen extracts Allergy (Intermediate, Verified 12/21/22 14:47) Itchy Eyes, runny nose Medication List - Last Reconciled 12/21/22 by Amelie Valentino MD famotidine (Pepcid) 40 mg PO BEDTIME fluticasone propionate 50 mcg/actuation 1 spray intranasal BID PNV,calcium 12-lnns-efrwy acid 27 mg iron- 1 mg ( Vitamins Plus Low Iron) 1 tab PO DAILY Tobacco use date assessed: 06/21/22 Dental Screening Dental Screen Date: 12/21/22 Did you have a dental visit in the last 12 months?: Yes Did you have a dental problem in the last 6 months where you did not have access to dental care?: No Was dental information given to patient?: Patient has dentist HPI HPI Comments History of Present Illness Details This is a 27-year-old female that comes for her physical exam. Last Pap smear was 2020 was normal. No chest pain or shortness of breath. [facility] Medical History demise VENANCIO (generalized anxiety disorder) History of multiple miscarriages Insomnia Mild recurrent major depression Physical exam Threatened Surgical History H/O dilation and curettage Family History (Updated 12/21/22 @ 14:51 by Amelie Valentino MD) Mother Fibromyalgia Breast cancer, Onset Age: 44 Father No problems noted. Social History Housing: Apartment Alcohol intake: current Alcohol intake frequency: holidays/special occasions only Patient Tobacco Use Status: Never used Tobacco e-Cigarette/Vaping Use: Never Used Second Hand Smoke Exposure: No service: No Current occupational status: unemployed Cognitive needs: No Hearing needs: No Vision needs: No Female Reproductive History Menstrual Age of Menarche: 9 Questionnaire Thrive Questionnaire Date Thrive assessed: 06/21/22 VENANCIO-7 AMB Questionnaire VENANCIO-7 Date VENANCIO - 7 assessed: 06/21/22 Source: Developed by Drs. Jian Medina, Valentina Chung, Michael Du and colleagues, with an educational crys from [employer]. Review of Systems Const All systems reviewed & are unremarkable except as noted in HPI and below Eyes Reports no additional complaints, Denies change in vision and Denies other visual disturbances Card Denies chest pain at rest, Denies chest pain with activity, Denies edema, Denies irregular heart rhythm, Denies claudication, Denies dyspnea, Denies dyspnea on exertion, Denies orthopnea, Denies paroxysmal nocturnal dyspnea and Denies slow heart rate Resp Denies cough, Denies dyspnea and Denies dyspnea on exertion GI Denies abdominal pain, Denies change in bowel habits, Denies excessive flatus, Denies nausea and Denies vomiting Denies urinary incontinence, Denies urinary hesitancy and Denies urinary urgency Musc Denies abnormal gait, Denies atrophy, Denies deformity and Denies limited range of motion Skin/Breast Denies bleeding lesions, Denies changing lesions and Denies rash Neuro Denies abnormal gait and Denies lack of coordination Physical exam (Primary Care) Vital Signs: Last Vital Signs BP 118/70 12/21/22 14:26 BMI result Body Mass Index 25.4 Tobacco/Smoking Status: Tobacco use Status Tobacco use date assessed 06/21/22 12/21/22 14:31 Patient Tobacco Use Status Never used Tobacco 12/21/22 14:31 e-Cigarette/Vaping Use Never Used 12/21/22 14:31 Thrive Assessment: Date of Thrive Assessment Date Thrive assessed 06/21/22 12/21/22 14:31 Const Orientation/consciousness: patient oriented x3 HENMT Head: Yes normal to inspection, Yes normocephalic and Yes atraumatic Ears: external ears normal Eyes General: appearance normal, both eyes and all related structures Eyelids: Yes eyelids normal Conjunctivae: conjunctivae normal Neck Neck: Yes normal visual inspection and Yes supple Resp Effort & Inspection: normal respiratory effort Auscultation: clear to auscultation bilaterally Cardio Jugular venous distension: no JVD Rate: regular rate Rhythm: regular rhythm Heart sounds: S1 normal heart sound present and S2 normal heart sound present GI Inspection: Yes normal to inspection Palpation (GI): Soft to palpation and nontender Auscultation: normal bowel sounds Skin General skin exam: no rashes or lesions noted Neuro General: patient oriented x3 and no focal motor deficits Extrem General: Yes full ROM Psych Appearance: grossly normal Assessment and Plan Assessment & Plan (1) Physical exam: Code(s): Z00.00 - Encounter for general adult medical examination without abnormal findings Plan: Repeat in a year Coding Level of Care Code Est Pt Prev Care 18-39y(57155) Diagnoses Physical exam Z00.00 Time Spent (min) 32
[2022-12-21 14:26] VITALS: BP 118/70; BMI 25.4
== END 2022-12-21 14:57 | disposition home or self-care (01) ==
PROVIDERS: PCP Internal Medicine; Visit Provider Internal Medicine
DX: Z00.00 Encounter for general adult medical examination without abnormal findings (principal)
CPT/HCPCS: 99395

== ENCOUNTER 2023-03-03 10:18 | Outpatient (AMB) | payer OTHER, SELFPAY ==
--- NOTE | 2023-03-03 10:29 | AM.OFFVISNUR ---
Intake Intake Visit Reasons: Flu Shot Allergies pollen extracts Allergy (Intermediate, Verified 12/21/22 14:47) Itchy Eyes, runny nose Office Procedures Flu Questionnaire Does the patient have a severe egg allergy?: No Does the patient have severe life threatening allergies?: No Does the patient have a fever or illness today?: No Has the patient ever had Guillain-[place] Syndrome?: No Has the patient ever had any past reaction to a flu shot?: No Immunizations flu vacc [id number] 6mos up(PF) 60 mcg(15 mcgx4)/0.5 mL IM syringe Performing Provider: Amelie Valentino MD [facility] Administered by: Reanna Martines RN on 03/03/23 10:30 Dose Route Admin Location Dispensed Lot Number Expiration Date NDC Agriculture Consultant 0.5 mL IM Left Deltoid 0.5 mL [id number] 10/30/23 [id number] [employer] VIS Given Date VIS Provided VIS Publication Date 03/03/23 Single Vaccine 20 Eligibility Eligibility Date Funding Source Not [facility] Eligible 03/03/23 Private Coding Assessment & Plan Assessment & Plan Orders: Orders Influenza [id number] Immunization Today Z23 - Encounter for immunization
== END 2023-03-03 10:32 | disposition home or self-care (01) ==
PROVIDERS: PCP Internal Medicine; Visit Provider Internal Medicine
DX: Z23 Encounter for immunization (principal)
CPT/HCPCS: 90471; 90686

== ENCOUNTER 2023-04-08 10:01 | Outpatient (AMB) | payer OTHER, SELFPAY ==
[2023-04-08 10:03] VITALS: BP 116/76; PULSE 84; O2SAT 99; BMI 27.0
--- NOTE | 2023-04-08 10:03 | A.OFFPC_ITS ---
Vital Signs 04/08/23 10:03 Height 5 ft 2 in Weight 147 lb 6 oz BMI 27.0 BP 116/76 Blood Pressure Location Lt brachial Position Sitting Pulse 84 Pulse Source Pulse Oximeter Pulse Oximetry (%) 99 Oxygen Delivery Method Room Air Intake Visit Reasons: Had A Shower Fall Intake Note: pt is here due to a shower fall yesterday, pt landed on her back left side and also elbow. Data Integration Analyst Required: No Accompanied by: Self / Same As Patient Allergies pollen extracts Allergy (Intermediate, Verified 04/08/23 10:07) Itchy Eyes, runny nose Tobacco use date assessed: 06/21/22 Dental Screening Dental Screen Date: 04/08/23 Did you have a dental visit in the last 12 months?: Yes Did you have a dental problem in the last 6 months where you did not have access to dental care?: No Was dental information given to patient?: Patient has dentist HPI HPI Comments History of Present Illness Details 27-year-old female past medical history significant for generalized anxiety disorder, depression, GERD and dizziness. Patient presents today for fall last night when she was going to take a shower. Patient reports she was going to get in the shower for which had her if it's bathtub in at and she was reaching above her head on her tippy-toes to open the window that was slightly outer reach patient reports she believes she may be got off balance on her left leg or like her left leg gave out and she fell in the bathtub, sliding down scraping her left thoracic back on the bathtub. Patient does have noted shear injury to left thoracic region of back. No surrounding ecchymosis. Patient denies any pain on inspiration denies any tenderness on palpation of ribs. Patient did also hit her left elbow patient does have small superficial scrape to left elbow with surrounding ecchymoses. Patient does have full range of motion of elbow denies any pain on palpation to elbow or upper and lower arm. Patient denies loss of consciousness or head strike. Patient reports ongoing thoracic back pain for years states she has spoken to PCP about this in the past was offered referral to physical therapy however she declined at that time. Patients concerned about her kidneys, CMP and US ordered. Patient now agreeable to proceed with physical therapy, order entered. [facility] Medical History demise VENANCIO (generalized anxiety disorder) History of multiple miscarriages Insomnia Mild recurrent major depression Physical exam Threatened Surgical History H/O dilation and curettage Family History Mother Fibromyalgia Breast cancer, Onset Age: 44 Father No problems noted. Social History Housing: Apartment Alcohol intake: current Alcohol intake frequency: holidays/special occasions only Patient Tobacco Use Status: Never used Tobacco e-Cigarette/Vaping Use: Never Used Second Hand Smoke Exposure: No service: No Current occupational status: unemployed Cognitive needs: No Hearing needs: No Vision needs: No Female Reproductive History Menstrual Age of Menarche: 9 Questionnaire Thrive Questionnaire Date Thrive assessed: 06/21/22 VENANCIO-7 AMB Questionnaire VENANCIO-7 Date VENANCIO - 7 assessed: 06/21/22 Source: Developed by Drs. Jian Medina, Valentina Chung, Michael Du and colleagues, with an educational crys from [employer]. Review of Systems Const Denies chills, Denies fatigue, Denies fever(s) and Denies poor appetite Eyes Denies no additional complaints ENT Reports Normal hearing present Card Denies chest pain, Denies syncope, Denies rapid heart rate and Denies dyspnea Resp Denies cough and Denies dyspnea GI Denies change in stool character, Denies constipation, Denies diarrhea, Denies nausea and Denies vomiting Denies urinary frequency, Denies dysuria and Denies urinary urgency Neuro Reports Normal hearing present, Denies confusion and Denies syncope Psych Denies confusion Endo Denies fatigue Physical exam (Primary Care) Vital Signs: Last Vital Signs Pulse 84 04/08/23 10:03 BP 116/76 04/08/23 10:03 Pulse Ox 99 04/08/23 10:03 Oxygen Delivery Method Room Air 04/08/23 10:03 BMI result Body Mass Index 27.0 Tobacco/Smoking Status: Tobacco use Status Tobacco use date assessed 06/21/22 04/08/23 10:06 Patient Tobacco Use Status Never used Tobacco 04/08/23 10:06 e-Cigarette/Vaping Use Never Used 04/08/23 10:06 Thrive Assessment: Date of Thrive Assessment Date Thrive assessed 06/21/22 04/08/23 10:06 Const General: No confusion Orientation/consciousness: No confusion HENMT Head: Yes normocephalic and Yes atraumatic Eyes Conjunctivae: conjunctivae normal Chest Chest palpation & inspection: normal inspection of the chest Resp Effort & Inspection: normal respiratory effort Auscultation: clear to auscultation bilaterally, no crackles, no rhonchi and no wheezes Cardio Rate: regular rate Rhythm: regular rhythm Heart sounds: S1 normal heart sound present and S2 normal heart sound present GI Inspection: Yes normal to inspection Neuro General: No confusion Cranial nerves: Yes Normal hearing present Extrem General: No edema Assessment and Plan Assessment & Plan (1) Fall: Code(s): W19.XXXA - Unspecified fall, initial encounter Plan: Given patient felt like her leg gave out on her and she is unsure if it was due to weakness will draw labs CBC and CMP, urinalysis to evaluate for any electrolyte abnormalities, anemia or UTI. Patient prescribed ibuprofen 600 mg every 8 hours as needed for pain. Patient advised to take medication with food to prevent GI upset. (2) Contusion, elbow: Code(s): S50.00XA - Contusion of unspecified elbow, initial encounter Plan: Patient has small abrasion noted to left elbow with surrounding ecchymosis patient does have full range of motion, no tenderness on palpation to elbow or left arm no obvious deformities noted. Take ibuprofen as needed for pain Patient advised to call office with any new or worsening symptoms. (3) Abrasion of left side of back: Code(s): S20.412A - Abrasion of left back wall of thorax, initial encounter Plan: Patient advise can apply [id number]-[id number] Neosporin. Ibuprofen sent for pain. Plan Keep scheduled follow-up with PCP or follow-up sooner needed Orders: Orders Comprehensive Met. Panel Today W19.XXXA - Unspecified fall, initial encounter PT Evaluation and Treatment Today M54.6 - Pain in thoracic spine Complete Blood Count Auto Diff Today Z13.0 - Encounter for screening for diseases of the blood and blood-forming organs and certain disorders involving the immune mechanism UA CC w/rflx Micro + Cult Today R30.0 - Dysuria Medications: New ibuprofen 600 mg PO Q8H PRN 30 tabs 0RF pain Coding Level of Care Code Est Pt Level 3 (83935) Diagnoses Fall W19.XXXA Contusion, elbow S50.00XA Abrasion of left side of back S20.412A
== END 2023-04-08 10:45 | disposition home or self-care (01) ==
PROVIDERS: PCP Internal Medicine; Visit Provider Nurse Practitioner Family
DX: S20.412A Abrasion of left back wall of thorax, initial encounter (principal); S50.02XA Contusion of left elbow, initial encounter; W19.XXXA Unspecified fall, initial encounter
CPT/HCPCS: 99213

== ENCOUNTER 2023-04-08 10:31 | Outpatient (REF) | payer OTHER, SELFPAY ==
[2023-04-08 10:48] LABS: MANUAL DIFF FLAG NO
[2023-04-08 11:07] LABS: Basophils Absolute Auto 0.1 X10*3/uL (0.0-0.2); Basophils Percent Auto 0.6 % (0-2); Eosinophils Absolute Auto 0.1 X10*3/uL (0.0-0.4); Hematocrit 39.2 % (37.0-47.0); Imm Gran Abs Auto 0.03 X10*3/uL (0.00-0.03); Imm Gran Pct Auto 0.4 % (0.0-0.4); Lymphocytes Absolute Auto 2.3 X10*3/uL (1.2-4.9); Lymphocytes Percent Auto 28.4 % (20-40); Mean Corpuscular HGB Conc 33.2 g/dl (31.0-35.0); Mean Corpuscular Hemoglobin 29.1 pg (27.0-33.0); Mean Corpuscular Volume 87.9 fL (80.0-98.0); Mean Platelet Volume 9.5 fL (9.4-12.3); Monocytes Absolute Auto 0.6 X10*3/uL (0.1-1.2); Monocytes Percent Auto 7.2 % (2-11); Neutrophils Percent Auto 62.4 % (45-73); Platelet Count 314 X10*3/uL (160-400); Red Blood Count 4.46 X10*6/uL (4.20-5.50); Red Cell Distribution Width 11.9 % (11.0-16.0)
[2023-04-08 11:07] LABS: Appearance Urine Clear; Color Urine Yellow; Glucose Urine UA Negative (Negative); Leukocyte Esterase Urine Negative (Negative); Nitrite Urine Negative (Negative); Specific Gravity - Urine >= 1.030 (1.005-1.025); Urine Blood Negative (Negative); Urine Ketones Negative (Negative); Urine Protein Negative (Neg-Trace)
[2023-04-08 11:50] LABS: Alanine Aminotransferase 15 U/L (0-31); Albumin Level 4.5 g/dL (3.5-5.0); Alkaline Phosphatase 86 U/L (39-117); Anion Gap 10 (12-20); Aspartate Amino Transferase 15 U/L (5-31); Bilirubin Total 0.7 mg/dL (0.0-1.0); Blood Urea Nitrogen 15 mg/dL (9-16); Calcium 9.2 mg/dL (8.4-10.2); Carbon Dioxide 30 mmol/L (22-29); Chloride 105 mmol/L (96-108); Estimated Glomerular Filt Rate > 60; Glucose Random 96 mg/dL (60-115); Potassium 4.1 mmol/L (3.3-5.1); Sodium 141 mmol/L (135-145); Total Protein 7.4 g/dL (6.5-8.0)
== END 2023-04-08 10:32 | disposition home or self-care (01) ==
LOC: HO.LAB 10:31
PROVIDERS: PCP Internal Medicine; Visit Provider Nurse Practitioner Family
DX: R30.0 Dysuria (principal); Z13.0 Encounter for screening for diseases of the blood and blood-forming organs and certain disorders involving the immune mechanism; Z91.81 History of falling
CPT/HCPCS: 36415; 80053; 81003; 85025

== ENCOUNTER 2023-06-27 10:50 | Outpatient (REF) | payer OTHER, SELFPAY ==
[2023-06-27 11:02] LABS: MANUAL DIFF FLAG NO
[2023-06-27 12:04] LABS: Basophils Percent Auto 0.3 % (0-2); Eosinophils Absolute Auto 0.1 X10*3/uL (0.0-0.4); Eosinophils Percent Auto 0.7 % (0-4); Hematocrit 41.1 % (37.0-47.0); Hemoglobin 13.8 g/dl (12.0-16.0); Imm Gran Abs Auto 0.04 X10*3/uL (0.00-0.03); Imm Gran Pct Auto 0.5 % (0.0-0.4); Lymphocytes Absolute Auto 1.4 X10*3/uL (1.2-4.9); Lymphocytes Percent Auto 16.3 % (20-40); Mean Corpuscular HGB Conc 33.6 g/dl (31.0-35.0); Mean Corpuscular Hemoglobin 29.4 pg (27.0-33.0); Mean Corpuscular Volume 87.4 fL (80.0-98.0); Mean Platelet Volume 9.8 fL (9.4-12.3); Monocytes Absolute Auto 0.5 X10*3/uL (0.1-1.2); Monocytes Percent Auto 5.3 % (2-11); Neutrophils Absolute Auto 6.7 x10*3/uL (2.0-8.3); Neutrophils Percent Auto 76.9 % (45-73); Platelet Count 364 X10*3/uL (160-400); Red Cell Distribution Width 11.8 % (11.0-16.0); White Blood Count 8.7 X10*3/uL (4.8-10.8)
[2023-06-27 13:00] LABS: Alanine Aminotransferase 18 U/L (0-31); Albumin Level 4.6 g/dL (3.5-5.0); Alkaline Phosphatase 86 U/L (39-117); Anion Gap 12 (12-20); Aspartate Amino Transferase 20 U/L (5-31); Bilirubin Total 0.6 mg/dL (0.0-1.0); Blood Urea Nitrogen 12 mg/dL (9-16); Calcium 9.9 mg/dL (8.4-10.2); Carbon Dioxide 28 mmol/L (22-29); Chloride 104 mmol/L (96-108); Estimated Glomerular Filt Rate > 60; Glucose Fasting 88 mg/dL (60-99); Sodium 140 mmol/L (135-145); Total Protein 8.2 g/dL (6.5-8.0)
[2023-06-27 13:17] LABS: Vitamin D 25-OH Total 23.6 ng/mL (>30)
== END 2023-06-27 10:51 | disposition home or self-care (01) ==
LOC: HO.LAB 10:50
PROVIDERS: PCP Internal Medicine; Visit Provider Internal Medicine
DX: E55.9 Vitamin D deficiency, unspecified (principal); R42 Dizziness and giddiness; D64.9 Anemia, unspecified
CPT/HCPCS: 36415; 80053; 82306; 85025

== ENCOUNTER 2023-06-28 11:54 | Outpatient (REF) | payer OTHER, SELFPAY ==
[2023-06-30 11:38] LABS: Prot Elec - Albumin 4.4 g/dL (3.8-4.8); Prot Elec - Alpha1 0.4 g/dL (0.2-0.3); Prot Elec - Alpha2 0.9 g/dL (0.5-0.9); Prot Elec - Beta 1 0.5 g/dL (0.4-0.6); Prot Elec - Beta 2 0.5 g/dL (0.2-0.5); Prot Elec - Total Protein 7.6 g/dL (6.1-8.1)
== END 2023-06-28 11:55 | disposition home or self-care (01) ==
LOC: HO.LAB 11:54
PROVIDERS: PCP Internal Medicine; Visit Provider Internal Medicine
DX: R77.8 Other specified abnormalities of plasma proteins (principal)
CPT/HCPCS: 36415; 84165

== ENCOUNTER 2023-07-05 13:52 | Outpatient (AMB) | payer OTHER, SELFPAY ==
[2023-07-05 13:57] VITALS: BP 113/63; PULSE 78; BMI 26.2
--- NOTE | 2023-07-05 13:57 | MHC.OFFVIS ---
Intake Vital Signs 07/05/23 13:57 Height 5 ft 2 in Weight 143 lb 4.807 oz BMI 26.2 BP 113/63 Blood Pressure Location Rt brachial Position Sitting Pulse 78 Intake Visit Reasons: Follow up GERD Intake Note: Patient presents in office today in follow up of GERD. CC:Patient reports sometimes after eating she feels the food stay too long in her stomach, like she is not digesting her meals properly. She also reports lately having a lot of heartburn and she has been taking the famotidine which per Pt helps with symptoms. Per patient she states she was recently sick with vomits and after that her GI symptoms are worst. Patient also having dizziness, and fatigue. She also reports feeling constipated lately and like the food gets stuck in her throat sometimes. 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 Social History Housing: Apartment Alcohol intake: current Alcohol intake frequency: holidays/special occasions only Patient Tobacco Use Status: Never used Tobacco e-Cigarette/Vaping Use: Never Used Second Hand Smoke Exposure: No service: No Current occupational status: unemployed Cognitive needs: No Hearing needs: No Vision needs: No Female Reproductive History Menstrual Age of Menarche: 9 Coding
--- NOTE | 2023-07-05 14:16 | MHC.OFFVIS ---
Intake Vital Signs 07/05/23 13:57 07/05/23 14:19 Height 5 ft 2 in Weight 143 lb 4.807 oz BMI 26.2 26.2 BP 113/63 Blood Pressure Location Rt brachial Position Sitting Pulse 78 Intake Visit Reasons: Follow up GERD Allergies pollen extracts Allergy (Intermediate, Verified 07/05/23 14:11) Itchy Eyes, runny nose No Known Drug Allergies Allergy (Unknown, Verified 07/05/23 14:11) none HPI Follow up GERD HPI Details Assessment & Plan (1) Epigastric pain: Code(s): R10.13 - Epigastric pain Plan: We review all of the results and I explained that it does not appear that she has gallbladder disease nor does she seem to have an H pylori infection that was driving her epigastric pain. She has been having trouble getting omeprazole and I think this is probably insurance related. Will try prescribing her famotidine twice a day. This also offset any possible diarrheal side effects that could be causing her since this is been on off problem for her. The patient is requesting a 3 month follow-up due to her personal schedule. (2) GERD (gastroesophageal reflux disease): Code(s): K21.9 - Gastro-esophageal reflux disease without esophagitis Medications: New famotidine (Pepcid ) 40 mg PO BEDTIME 3 0 tabs 6RF K21.9 - Gastro-eso phageal reflux dis ease without esoph agitis Discontinued omeprazole Disc ontinued Reason: Doctor's Order 20 mg PO DAILY 90 days PRN 90 caps 0RF heartburn . TODAY'S VISIT She did receive the famotidine which she is taking prn. She feels that certain foods trigger her stomach like greasy or spicy foods, and this is helpful for this. She tells me that at times she has a feeling like her food is not going down but this seems to be when she is constipated, as she only moves her bowels twice a week. She drinks a lot of water, but she does not eat many vegetables or whole greens. Before we consider laxatives I suggest she add a fiber supplement and give her suggestions including Benefiber, Citrucel or fiber gummies. She had a gastroenteritis a couple of weeks ago, and her stomach is still a bit upset from this. She had N/V/D which was going through her sons school. She has been having dizziness and had some labs via her PCP, but only a low vit D and high serum protein. Her anxiety also triggers her stomach problems, so this could be impacting her sleep as well. ROV 6 mos. [facility] Medical History (Updated 07/05/23 @ 14:18 by JOHNATHAN Ambriz) Tiredness Physical exam VENANCIO (generalized anxiety disorder) History of multiple miscarriages Complete Threatened Early stage of History of demise, not currently Well woman exam Mild recurrent major depression Insomnia demise Surgical History H/O dilation and curettage Family History Mother Fibromyalgia Breast cancer, Onset Age: 44 Father No problems noted. Social History Housing: Apartment Alcohol intake: current Alcohol intake frequency: holidays/special occasions only Patient Tobacco Use Status: Never used Tobacco e-Cigarette/Vaping Use: Never Used Second Hand Smoke Exposure: No service: No Current occupational status: unemployed Cognitive needs: No Hearing needs: No Vision needs: No Female Reproductive History Menstrual Age of Menarche: 9 Review of Systems Const Denies fatigue, Denies fever(s), Denies night sweats, Denies poor appetite and Denies weight loss ENT Reports Normal hearing present, Denies dental pain, Denies dysphagia, Reports dizziness, Denies hearing loss, Denies mouth pain, Denies odynophagia, Denies throat swelling, Denies tongue swelling and Reports other (Dentition adequate) Card Reports no additional complaints Resp Reports no additional complaints GI Details: Denies abdominal pain, Denies melena, Denies bloating, Denies hematochezia, Reports constipation, Denies GI cramping, Denies dysphagia, Denies excessive flatus, Denies early satiety, Reports dyspepsia, Reports heartburn, Denies diarrhea, Denies nausea, Denies odynophagia, Denies vomiting and Denies hematemesis Skin/Breast Denies pruritus, Denies lesions, Denies rash and Denies jaundice Neuro Reports Normal hearing present, Denies Abnormal speech present and Reports dizziness Psych Reports anxiety Endo Denies fatigue Aller/Immun Denies throat swelling and Denies tongue swelling Physical Exam Vital Signs: Last Vital Signs Pulse 78 07/05/23 13:57 BP 113/63 07/05/23 13:57 BMI result Body Mass Index 26.2 Const General: cooperative, no acute distress, well developed and well groomed Nutritional Appearance: average body habitus and well nourished Orientation/consciousness: oriented to person, oriented to place and oriented to time Limitations: No language barrier HEENT Head: Yes normocephalic and Yes atraumatic Eyes General: appearance normal, both eyes and all related structures Pupils: Equal, round and reactive pupils present Neck Neck: Yes normal visual inspection and Yes no lymphadenopathy Thyroid: Thyroid normal Resp Effort & Inspection: normal respiratory effort and able to speak in complete sentences Auscultation: clear to auscultation bilaterally Cardio Rate: regular rate Rhythm: regular rhythm Heart sounds: Normal, physiologic split S2 sound present Peripheral pulses: radial pulses present and posterior tibial pulses present GI Inspection: No distended and No Abdominal panniculus present Palpation (GI): Soft to palpation, nontender, no guarding, not rigid and No hepatosplenomegaly present Percussion: Yes normal to percussion Auscultation: normal bowel sounds Rectal Exam - Female: deferred Skin General skin exam: no rashes or lesions noted, turgor normal, skin not dry, no jaundice, No spider nevi and no striae Rashes: no rashes Nails: normal Neuro General: oriented to person, oriented to place and oriented to time Cranial nerves: Yes Equal, round and reactive pupils present and Yes Normal hearing present Speech: No Abnormal speech present Extrem General: Yes normal to inspection, No clubbing, No cyanosis and No edema Psych Appearance: grossly normal and well kempt Mental Status: mental status grossly normal Speech and movement: Normal speech and movement present Affect: normal affect Attitude: cooperative Thought process: Normal thought process present and not confabulating Thought content: Normal thought content present Insight: Limited insight present (Psych) Judgement: Limited judgement present (Psych) Assessment & Plan Assessment & Plan (1) GERD (gastroesophageal reflux disease): Code(s): K21.9 - Gastro-esophageal reflux disease without esophagitis (2) Constipation: Code(s): K59.00 - Constipation, unspecified Plan She did receive the famotidine which she is taking prn. She feels that certain foods trigger her stomach like greasy or spicy foods, and this is helpful for this. She tells me that at times she has a feeling like her food is not going down but this seems to be when she is constipated, as she only moves her bowels twice a week. She drinks a lot of water, but she does not eat many vegetables or whole greens. Before we consider laxatives I suggest she add a fiber supplement and give her suggestions including Benefiber, Citrucel or fiber gummies. She had a gastroenteritis a couple of weeks ago, and her stomach is still a bit upset from this. She had N/V/D which was going through her sons school. She has been having dizziness and had some labs via her PCP, but only a low vit D and high serum protein. Her anxiety also triggers her stomach problems, so this could be impacting her sleep as well. ROV 6 mos. Coding Level of Care Code Est Pt Level 3 (83612) Diagnoses GERD (gastroesophageal reflux disease) K21.9 Constipation K59.00
[2023-07-05 14:19] VITALS: BMI 26.2
== END 2023-07-05 14:48 | disposition home or self-care (01) ==
PROVIDERS: PCP Internal Medicine; Visit Provider Nurse Practitioner
DX: K21.9 Gastro-esophageal reflux disease without esophagitis (principal); K59.00 Constipation, unspecified
CPT/HCPCS: 99213

== ENCOUNTER → 2023-07-05 13:52 | Outpatient (BNVA) | payer OTHER, SELFPAY | PROVIDERS: PCP Internal Medicine; Visit Provider Nurse Practitioner | DX: K21.9 Gastro-esophageal reflux disease without esophagitis (principal); K59.00 Constipation, unspecified | CPT/HCPCS: 99212 ==

== ENCOUNTER 2023-07-21 15:55 | Outpatient (AMB) | payer OTHER, SELFPAY ==
--- NOTE | 2023-07-21 15:55 | MHC.PC.OV ---
Intake Visit Reasons: blood work f/u Intake Note: Blood work follow Telehealth Cfo Controller Required: No Accompanied by: Self / Same As Patient Allergies pollen extracts Allergy (Intermediate, Verified 07/21/23 16:11) Itchy Eyes, runny nose No Known Drug Allergies Allergy (Unknown, Verified 07/21/23 16:11) none Medication List - Last Reconciled 07/21/23 by Amelie Valentino MD cholecalciferol (vitamin D3) 25 mcg PO DAILY 90 days famotidine (Pepcid) 40 mg PO BEDTIME PRN Tobacco use date assessed: 07/21/23 Dental Screening Dental Screen Date: 07/21/23 Did you have a dental visit in the last 12 months?: Yes Did you have a dental problem in the last 6 months where you did not have access to dental care?: No Was dental information given to patient?: Patient has dentist HPI HPI Comments History of Present Illness Details This is a 27-year-old female with mild recurrent major depression, anxiety, GERD and low vitamin-D that has tele health visit by video to discuss the lab results. She had elevated total protein and I ordered SPEP which shows normal total protein with only mild elevation of alpha 1 globulin. She has dizziness and tiredness occasionally. Denies any fever or night sweats. No weight changes. She is trying to get a counselor for her depression and anxiety because she does not want medications. GERD stable with famotidine. On vitamin-D supplements for her low vitamin-D. [facility] Medical History (Updated 07/22/23 @ 13:46 by Amelie Valentino MD) Tiredness Physical exam VENANCIO (generalized anxiety disorder) History of multiple miscarriages Complete Threatened Early stage of History of demise, not currently Well woman exam Mild recurrent major depression Insomnia demise Surgical History H/O dilation and curettage Family History Mother Fibromyalgia Breast cancer, Onset Age: 44 Father No problems noted. Social History Housing: Apartment Alcohol intake: current Alcohol intake frequency: holidays/special occasions only Patient Tobacco Use Status: Never used Tobacco e-Cigarette/Vaping Use: Never Used Second Hand Smoke Exposure: No service: No Current occupational status: employed Current occupational exposures/hazards: No Cognitive needs: No Hearing needs: No Vision needs: No Female Reproductive History Menstrual Age of Menarche: 9 Questionnaire PHQ-9 Over the last 2 weeks, how often have you been bothered by any of the following problems? 1. Little interest or pleasure in doing things: not at all 2. Feeling down, depressed, or hopeless: not at all 3. Trouble falling or staying asleep, or sleeping too much: not at all 4. Feeling tired or having little energy: not at all 5. Poor appetite or overeating: not at all 6. Feeling bad about yourself - or that you are a failure or have let yourself or your family down: not at all 7. Trouble concentrating on things, such as reading the newspaper or watching television: not at all 8. Moving or speaking so slowly that other people could have noticed. Or the opposite - being so fidgety or restless that you have been moving around a lot more than usual: not at all 9. Thoughts that you would be better off or of hurting yourself in some way: not at all Total score: 0 Depression Screening Interpretation: Positive Depression Screening Follow-up: Existing condition Depression Screening Done: Yes 15308 - PHQ-9 Billing: Yes Source: Developed by Drs. Jian Medina, Valentina Chung, Michael Du and colleagues, with an educational crys from [employer]. Thrive Questionnaire Date Thrive assessed: 07/21/23 I am a: Patient What is your living situation today?: I have a steady place to live Within the past 12 months, did the food you bought not last and you didn't have the money to get more?: Never true Within the past 12 months, did you worry whether your food would run out before you got money to buy more?: Never true Do you have trouble paying for medicines?: No Do you have trouble getting transportation to medical appointments?: No Do you have trouble paying your heating and electricity bill?: No Do you have trouble taking care of your child, family member or friend?: No Do you have trouble with day-to-day activities such as bathing, preparing meals, shopping, managing finances, etc.?: No Are you currently unemployed and looking for a job?: No Are you interested in more education?: No Please select the resources that you would like help with: None Currently or been in a relationship where the following occur: no concerns reported THRIVE Score: 0 AUDIT C Alcohol Use Questionnaire (AUDIT-C) 1. How often do you have a drink containing alcohol?: Never Total Score: 0 VENANCIO-7 AMB Questionnaire VENANCIO-7 Date VENANCIO - 7 assessed: 07/21/23 Feeling nervous, anxious, or on edge: 1 = Several days Not being able to stop or control worryin = Not at all Worrying too much about different things: 0 = Not at all Trouble relaxin = Not at all Being so restless that it is hard to sit still: 0 = Not at all Becoming easily annoyed or irritable: 0 = Not at all Feeling afraid as if something awful might happen: 0 = Not at all Total VENANCIO-7 score (0-4 normal; 5-9 mild; 10-14 moderate; 15-21 severe): 1 Source: Developed by Drs. Jian Medina, Valentina Chung, Michael Du and colleagues, with an educational crys from [employer]. VENANCIO-7 Assessment Billing VENANCIO-7 Assessment Tool: VENANCIO-7 Assessment 33515 Review of Systems Const All systems reviewed & are unremarkable except as noted in HPI and below Eyes Reports no additional complaints, Denies change in vision and Denies other visual disturbances Card Denies chest pain at rest, Denies chest pain with activity, Denies edema, Denies irregular heart rhythm, Denies claudication, Denies dyspnea, Denies dyspnea on exertion, Denies orthopnea, Denies paroxysmal nocturnal dyspnea and Denies slow heart rate Resp Denies cough, Denies dyspnea and Denies dyspnea on exertion GI Denies abdominal pain, Denies change in bowel habits, Denies excessive flatus, Denies nausea and Denies vomiting Denies urinary incontinence, Denies urinary hesitancy and Denies urinary urgency Physical exam (Primary Care) Tobacco/Smoking Status: Tobacco use Status Tobacco use date assessed 07/21/23 07/21/23 16:00 Patient Tobacco Use Status Never used Tobacco 07/21/23 16:00 e-Cigarette/Vaping Use Never Used 07/21/23 16:00 PHQ-9: PHQ-9 Score PHQ-9: Total score 0 07/21/23 16:20 Depression Screening Interpretation: Positive Depression Screening Follow-up: Existing condition Thrive Assessment: Date of Thrive Assessment Date Thrive assessed 07/21/23 07/21/23 16:00 Currently or been in a relationship where the following occur: no concerns reported Const Orientation/consciousness: patient oriented x3 Eyes General: appearance normal, both eyes and all related structures Eyelids: Yes eyelids normal Conjunctivae: conjunctivae normal Neuro General: patient oriented x3 Extrem General: Yes full ROM Psych Appearance: grossly normal Telehealth Telehealth Location of provider rendering services: practice address Location of patient: address on file Patient Identification confirmed using: Name, : Yes Telehealth method: video Patient verbally consented to treatment: Yes Patient verbally consented to billing insurance company: Yes Patient informed of any privacy concerns related to visit: Yes Minutes spent on Phone/Video with Pt.: 19 Assessment and Plan Assessment & Plan (1) Mild recurrent major depression: Code(s): F33.0 - Major depressive disorder, recurrent, mild Plan: Continue looking for counseling. (2) VENANCIO (generalized anxiety disorder): Code(s): F41.1 - Generalized anxiety disorder Plan: Continue looking for counseling. (3) GERD (gastroesophageal reflux disease): Code(s): K21.9 - Gastro-esophageal reflux disease without esophagitis Plan: Continue famotidine. (4) Hypovitaminosis D: Code(s): E55.9 - Vitamin D deficiency, unspecified Plan: Continue vitamin-D supplements. Medications: New cetirizine (All Day Allergy (cetirizine)) 10 mg PO DAILY 90 days PRN 90 tabs 0RF allergy symptoms Coding Level of Care Code Est Pt Level 4 (93903) Diagnoses Mild recurrent major depression F33.0 VENANCIO (generalized anxiety disorder) F41.1 GERD (gastroesophageal reflux disease) K21.9 Hypovitaminosis D E55.9 Additional Codes VENANCIO-7 Assessment Billing - VENANCIO-7 Assessment Tool: VENANCIO-7 Assessment 30376 ([id number]) Time Spent (min) 19
== END 2023-07-21 16:38 | disposition home or self-care (01) ==
LOC: HO.HMGH 15:55
PROVIDERS: PCP Internal Medicine; Visit Provider Internal Medicine
DX: F33.0 Major depressive disorder, recurrent, mild (principal); F41.1 Generalized anxiety disorder; K21.9 Gastro-esophageal reflux disease without esophagitis; E55.9 Vitamin D deficiency, unspecified
CPT/HCPCS: 99214

== ENCOUNTER 2023-12-26 15:39 | Outpatient (AMB) | payer OTHER, SELFPAY ==
--- NOTE | 2023-12-26 15:55 | A.OFFPC_ITS ---
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 Required: No Accompanied by: Child Allergies pollen extracts Allergy (Intermediate, Verified 12/26/23 16:06) Itchy Eyes, runny nose No Known Drug Allergies Allergy (Unknown, Verified 12/26/23 16:06) none Medication List - Last Reconciled 12/26/23 by Ameile Valentino MD cetirizine (All Day Allergy (cetirizine)) 10 mg PO DAILY PRN 90 days cholecalciferol (vitamin D3) 25 mcg PO DAILY 90 days famotidine (Pepcid) 40 mg PO BEDTIME PRN Tobacco use date assessed: 07/21/23 Dental Screening Dental Screen Date: 07/21/23 HPI HPI Comments History of Present Illness Details This is a 28-year-old female that comes for her physical exam. Pap smear done 2020 and was normal. Denies any chest pain or shortness on breath. Complains of thoracic spine pain and an x-ray will be order and will be referred to pain management. [facility] [place] Medical History (Updated 12/26/23 @ 19:24 by Amelie Valentino MD) Physical exam Tiredness VENANCIO (generalized anxiety disorder) History of multiple miscarriages Complete Threatened Early stage of History of demise, not currently Well woman exam Mild recurrent major depression Insomnia demise Surgical History H/O dilation and curettage Family History Mother Fibromyalgia Breast cancer, Onset Age: 44 Father No problems noted. Social History Housing: Apartment Alcohol intake: current Alcohol intake frequency: holidays/special occasions only Patient Tobacco Use Status: Never used Tobacco e-Cigarette/Vaping Use: Never Used Second Hand Smoke Exposure: No service: No Current occupational status: employed Current occupational exposures/hazards: No Cognitive needs: No Hearing needs: No Vision needs: No Female Reproductive History Menstrual Age of Menarche: 9 Questionnaire Thrive Questionnaire Date Thrive assessed: 07/21/23 VENANCIO-7 AMB Questionnaire VENANCIO-7 Date VENANCIO - 7 assessed: 07/21/23 Source: Developed by Drs. Jian Medina, Valentina Chung, Michael Du and colleagues, with an educational crys from [employer]. Review of Systems Const All systems reviewed & are unremarkable except as noted in HPI and below Card Denies chest pain at rest, Denies chest pain with activity, Denies edema, Denies irregular heart rhythm, Denies claudication, Denies dyspnea, Denies dyspnea on exertion, Denies orthopnea, Denies paroxysmal nocturnal dyspnea and Denies slow heart rate Resp Denies cough, Denies dyspnea and Denies dyspnea on exertion GI Denies abdominal pain, Denies change in bowel habits, Denies excessive flatus, Denies nausea and Denies vomiting Denies urinary incontinence, Denies urinary hesitancy and Denies urinary urgency Musc Denies abnormal gait, Reports back pain, Denies atrophy, Denies deformity and Denies limited range of motion Skin/Breast Denies bleeding lesions, Denies changing lesions and Denies rash Neuro Denies abnormal gait and Denies lack of coordination Physical exam (Primary Care) Vital Signs: Last Vital Signs BP 118/70 12/26/23 15:58 BMI result Body Mass Index 25.4 Tobacco/Smoking Status: Tobacco use Status Tobacco use date assessed 07/21/23 12/26/23 15:55 Patient Tobacco Use Status Never used Tobacco 12/26/23 15:55 e-Cigarette/Vaping Use Never Used 12/26/23 15:55 Thrive Assessment: Date of Thrive Assessment Date Thrive assessed 07/21/23 12/26/23 15:55 [facility] Head: Yes normal to inspection, Yes normocephalic and Yes atraumatic Ears: external ears normal Eyes General: appearance normal, both eyes and all related structures Eyelids: Yes eyelids normal Conjunctivae: conjunctivae normal Neck Neck: Yes normal visual inspection and Yes supple Resp Effort & Inspection: normal respiratory effort Auscultation: clear to auscultation bilaterally Cardio Jugular venous distension: no JVD Rate: regular rate Rhythm: regular rhythm Heart sounds: S1 normal heart sound present and S2 normal heart sound present GI Inspection: Yes normal to inspection Palpation (GI): Soft to palpation and nontender Auscultation: normal bowel sounds Skin General skin exam: no rashes or lesions noted Neuro General: no focal motor deficits Extrem General: Yes full ROM Psych Appearance: grossly normal Assessment and Plan Assessment & Plan (1) Physical exam: Code(s): Z00.00 - Encounter for general adult medical examination without abnormal findings Plan: Repeat in a year. (2) Thoracic spine pain: Code(s): M54.6 - Pain in thoracic spine Plan: X-ray ordered. Referred to pain management. Orders: Orders XR thoracic spine 2V Today M54.6 - Pain in thoracic spine Lipid Panel Today Z00.00 - Encounter for general adult medical examination without abnormal findings Vitamin B12 and Folate Today E53.8 - Deficiency of other specified B group vitamins, R42 - Dizziness and giddiness Complete Blood Count Auto Diff Today R42 - Dizziness and giddiness Vitamin D 25-OH Total Today E55.9 - Vitamin D deficiency, unspecified Comprehensive Ortley. Panel Fast Today Z00.00 - Encounter for general adult medical examination without abnormal findings Thyroid Stimulating Hormone Today R42 - Dizziness and giddiness Referrals Pain Management Referral M54.6 - Pain in thoracic spine Coding Level of Care Code Est Pt Level 3 (55491) Est Pt Prev Care 18-39y(14502) Diagnoses Physical exam Z00.00 Thoracic spine pain M54.6 Time Spent (min) 33
[2023-12-26 15:58] VITALS: BP 118/70; BMI 25.4
== END 2023-12-26 16:30 | disposition home or self-care (01) ==
PROVIDERS: PCP Internal Medicine; Visit Provider Internal Medicine
DX: Z00.00 Encounter for general adult medical examination without abnormal findings (principal); M54.6 Pain in thoracic spine
CPT/HCPCS: 99213; 99395

== ENCOUNTER 2023-12-29 08:06 | Outpatient (REF) | payer OTHER, SELFPAY ==
--- NOTE | ~2023-12-29 | XR_ITS ---
EXAMINATION: XR THORACIC SPINE CLINICAL INFORMATION: Thoracic spine pain COMPARISON: None available. TECHNIQUE: 3 views of the thoracic spine were obtained. FINDINGS: The visualized thoracic vertebrae are intact with mild lower thoracic levoscoliosis which may be positional. Intervertebral disc spaces are normal. XR/XR thoracic spine 2V IMPRESSION: 1. Normal thoracic spine x-ray. 2. No fracture or dislocation of thoracic spine is seen. Electronically signed by: Carlo Rosales MD 12/29/2023 04:40 PM EDT
[2023-12-29 08:32] LABS: MANUAL DIFF FLAG NO
[2023-12-29 08:52] LABS: Basophils Percent Auto 0.6 % (0-2); Eosinophils Absolute Auto 0.1 X10*3/uL (0.0-0.4); Hematocrit 38.5 % (37.0-47.0); Hemoglobin 13.3 g/dl (12.0-16.0); Imm Gran Abs Auto 0.03 X10*3/uL (0.00-0.03); Imm Gran Pct Auto 0.5 % (0.0-0.4); Lymphocytes Percent Auto 31.5 % (20-40); Mean Corpuscular HGB Conc 34.5 g/dl (31.0-35.0); Mean Corpuscular Hemoglobin 29.5 pg (27.0-33.0); Mean Corpuscular Volume 85.4 fL (80.0-98.0); Mean Platelet Volume 9.4 fL (9.4-12.3); Monocytes Absolute Auto 0.5 X10*3/uL (0.1-1.2); Monocytes Percent Auto 8.5 % (2-11); Neutrophils Absolute Auto 3.6 x10*3/uL (2.0-8.3); Neutrophils Percent Auto 56.9 % (45-73); Platelet Count 310 X10*3/uL (160-400); Red Blood Count 4.51 X10*6/uL (4.20-5.50); White Blood Count 6.4 X10*3/uL (4.8-10.8)
[2023-12-29 09:22] LABS: Alanine Aminotransferase 19 U/L (0-31); Albumin Level 4.4 g/dL (3.5-5.0); Alkaline Phosphatase 80 U/L (39-117); Anion Gap 10 (12-20); Aspartate Amino Transferase 21 U/L (5-31); Bilirubin Total 0.7 mg/dL (0.0-1.0); Blood Urea Nitrogen 17 mg/dL (9-16); Calcium 9.5 mg/dL (8.4-10.2); Carbon Dioxide 26 mmol/L (22-29); Chloride 105 mmol/L (96-108); Cholesterol 146 mg/dL (<200); Estimated Glomerular Filt Rate > 60; Glucose Fasting 86 mg/dL (60-99); HDL Cholesterol 61 mg/dL (>40); LDL Cholesterol Calculated 77 mg/dL (<100); Potassium 4.1 mmol/L (3.3-5.1); Sodium 137 mmol/L (135-145); Total Protein 7.3 g/dL (6.5-8.0); Triglycerides 40 mg/dL (<150)
[2023-12-29 09:38] LABS: Thyroid Stimulating Hormone 1.63 uIU/mL (0.32-4.0); Vitamin D 25-OH Total 31.8 ng/mL (>30)
[2023-12-29 09:52] LABS: Folate 7.7 ng/mL (> or = 4.0); Vitamin B12 440 pg/mL (200-900)
== END 2023-12-29 08:07 | disposition home or self-care (01) ==
LOC: HO.XRAY 08:06
PROVIDERS: PCP Internal Medicine; Visit Provider Internal Medicine
DX: Z00.00 Encounter for general adult medical examination without abnormal findings (principal); E53.8 Deficiency of other specified B group vitamins; R42 Dizziness and giddiness; E55.9 Vitamin D deficiency, unspecified; M54.6 Pain in thoracic spine
CPT/HCPCS: 36415; 72070; 80053; 80061; 82306; 82607; 82746; 84443; 85025

== ENCOUNTER 2024-01-04 14:06 | Outpatient (AMB) | payer OTHER, SELFPAY ==
--- NOTE | 2024-01-04 14:09 | MHC.OFFVIS ---
Vital Signs 01/04/24 14:10 Height 5 ft 2 in Weight 136 lb 10.986 oz BMI 25.0 BP 94/50 L Blood Pressure Location Lt brachial Position Sitting Pulse 79 Intake Visit Reasons: 6 month CIC, GERD Intake Note: Emelina presents in the office as a 6 month follow up for CIC and GERD. CC: She states that she tries to avoid spicy foods - when she does she will have nausea. No abnormal pains in her abdomen. 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 She feels that certain foods trigger her stomach like greasy or spicy foods, and this is helpful for this. She tells me that at times she has a feeling like her food is not going down but this seems to be when she is constipated, as she only moves her bowels twice a week. She drinks a lot of water, but she does not eat many vegetables or whole greens. Before we consider laxatives I suggest she add a fiber supplement and give her suggestions including Benefiber, Citrucel or fiber gummies. She had a gastroenteritis a couple of weeks ago, and her stomach is still a bit upset from this. She had N/V/D which was going through her sons school. She has been having dizziness and had some labs via her PCP, but only a low vit D and high serum protein. Her anxiety also triggers her stomach problems, so this could be impacting her sleep as well. ROV 6 mos. TODAY'S VISIT She is doing well with the famotidine and is drinking Meyer drink that has greens and fiber. With this her GI conditions are well controlled. ROV 6 mos. [facility] Medical History Physical exam Tiredness VENACNIO (generalized anxiety disorder) History of multiple miscarriages Complete Threatened Early stage of History of demise, not currently Well woman exam Mild recurrent major depression Insomnia demise Surgical History H/O dilation and curettage Family History (Updated 01/04/24 @ 14:14 by DAYO Campbell) Mother Fibromyalgia Breast cancer, Onset Age: 44 Father No problems noted. Maternal Grandfather Colon polyps Social History Housing: Apartment Alcohol intake: current Alcohol intake frequency: holidays/special occasions only Patient Tobacco Use Status: Never used Tobacco e-Cigarette/Vaping Use: Never Used Second Hand Smoke Exposure: No service: No Current occupational status: employed Current occupational exposures/hazards: No Cognitive needs: No Hearing needs: No Vision needs: No Female Reproductive History Menstrual Age of Menarche: 9 Review of Systems Const Denies fatigue, Denies fever(s), Denies night sweats, Denies poor appetite and Denies weight loss ENT Reports Normal hearing present, Denies dental pain, Denies dysphagia, Denies hearing loss, Denies mouth pain, Denies odynophagia, Denies throat swelling, Denies tongue swelling and Reports other (Dentition adequate) Card Reports no additional complaints Resp Reports no additional complaints GI Details: Denies abdominal pain, Denies melena, Denies bloating, Denies hematochezia, Reports constipation, Denies GI cramping, Denies dysphagia, Denies excessive flatus, Denies early satiety, Reports heartburn, Denies diarrhea, Denies nausea, Denies odynophagia, Denies vomiting and Denies hematemesis Skin/Breast Denies pruritus, Denies lesions, Denies rash and Denies jaundice Neuro Reports Normal hearing present and Denies Abnormal speech present Endo Denies fatigue Aller/Immun Denies throat swelling and Denies tongue swelling Physical Exam Vital Signs: Last Vital Signs Pulse 79 01/04/24 14:10 BP 94/50 L 01/04/24 14:10 BMI result Body Mass Index 25.0 Const General: cooperative, no acute distress, well developed and well groomed Nutritional Appearance: average body habitus and well nourished Orientation/consciousness: oriented to person, oriented to place and oriented to time Limitations: No language barrier HEENT Head: Yes normocephalic and Yes atraumatic Eyes General: appearance normal, both eyes and all related structures Pupils: Equal, round and reactive pupils present Neck Neck: Yes normal visual inspection and Yes no lymphadenopathy Thyroid: Thyroid normal Resp Effort & Inspection: normal respiratory effort and able to speak in complete sentences Auscultation: clear to auscultation bilaterally Cardio Rate: regular rate Rhythm: regular rhythm Heart sounds: Normal, physiologic split S2 sound present Peripheral pulses: radial pulses present and posterior tibial pulses present GI Inspection: No distended and No Abdominal panniculus present Palpation (GI): Soft to palpation, nontender, no guarding, not rigid and No hepatosplenomegaly present Percussion: Yes normal to percussion Auscultation: normal bowel sounds Rectal Exam - Female: deferred Skin General skin exam: no rashes or lesions noted, turgor normal, skin not dry, no jaundice, No spider nevi and no striae Rashes: no rashes Nails: normal Neuro General: oriented to person, oriented to place and oriented to time Cranial nerves: Yes Equal, round and reactive pupils present and Yes Normal hearing present Speech: No Abnormal speech present Extrem General: Yes normal to inspection, No clubbing, No cyanosis and No edema Psych Appearance: grossly normal and well kempt Mental Status: mental status grossly normal Speech and movement: Normal speech and movement present Affect: normal affect Attitude: cooperative Thought process: Normal thought process present and not confabulating Thought content: Normal thought content present Insight: Good insight present (Psych) Judgement: Good judgement present (Psych) Assessment & Plan Assessment & Plan (1) Constipation: Code(s): K59.00 - Constipation, unspecified Category: Medical (2) Nausea & vomiting: Code(s): R11.2 - Nausea with vomiting, unspecified Category: Medical (3) GERD (gastroesophageal reflux disease): Code(s): K21.9 - Gastro-esophageal reflux disease without esophagitis Category: Medical Plan She is doing well with the famotidine and is drinking Meyer drink that has greens and fiber. With this her GI conditions are well controlled. ROV 6 mos. Medications: New famotidine (Pepcid) 40 mg PO BEDTIME PRN 30 tabs 6RF gerd K21.9 - Gastro-esophageal reflux disease without esophagitis Coding Level of Care Code Est Pt Level 3 (72219) Diagnoses Constipation K59.00 Nausea & vomiting R11.2 GERD (gastroesophageal reflux disease) K21.9
[2024-01-04 14:10] VITALS: BP 94/50; PULSE 79; BMI 25.0
== END 2024-01-04 14:41 | disposition home or self-care (01) ==
PROVIDERS: PCP Internal Medicine; Visit Provider Nurse Practitioner
DX: K59.00 Constipation, unspecified (principal); R11.2 Nausea with vomiting, unspecified; K21.9 Gastro-esophageal reflux disease without esophagitis
CPT/HCPCS: 99213

== ENCOUNTER → 2024-01-04 14:06 | Outpatient (BNVA) | payer OTHER, SELFPAY | PROVIDERS: PCP Internal Medicine; Visit Provider Nurse Practitioner | DX: K59.04 Chronic idiopathic constipation (principal); K21.9 Gastro-esophageal reflux disease without esophagitis; R11.2 Nausea with vomiting, unspecified | CPT/HCPCS: 99212 ==

== ENCOUNTER 2024-02-17 12:56 | Outpatient (AMB) | payer OTHER, SELFPAY ==
[2024-02-17 13:05] VITALS: BP 116/76; PULSE 98; RESP 16; O2SAT 98; BMI 25.9
--- NOTE | 2024-02-17 13:05 | MHC.OFFVIS ---
Vital Signs 02/17/24 13:05 Height 5 ft 2 in Weight 141 lb 8 oz BMI 25.9 BP 116/76 Blood Pressure Location Lt brachial Position Sitting Respiration 16 Pulse 98 Pulse Source Pulse Oximeter Pulse Oximetry (%) 98 Oxygen Delivery Method Room Air Intake Visit Reasons: PAIN IN THORACIC SPINE Intake Note: Patient comes in for initial visit. Reports pain 8/10. Allergies pollen extracts Allergy (Intermediate, Verified 02/17/24 13:05) Itchy Eyes, runny nose No Known Drug Allergies Allergy (Unknown, Verified 02/17/24 13:05) none HPI HPI PAIN IN THORACIC SPINE: Details: Patient is a pleasant 28 years old female with history of mid lower thoracic levoscoliosis, presents today for initial evaluation of chronic mid back pain. Denies any recent trauma, injury, or falls. Patient presents with localized tenderness of lower thoracic midline back pain with radiation to the right side and at times to the left, associated with burning, tingling, numbness, and stabbing pain sensation. Denies any previous spine injections or surgery. 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 She takes care of her 1-1/2-year son at home. Reports increased mid back pain when she gets up at night to tender care to her child as well as history of significant mid back pain with and holding her son. Pain affects her daily activities and functioning, sleep, mood, work, and social interactions. Pain is constant and worse during the day and middle of the night which she rates at 8-10/10 and least severe at 5/10 at rest and mornings. Patient has attended physical therapy and more recently chiropractor adjustments with minimal improvements. She continues to live a physically active lifestyle and regularly performs home exercise program. Denies any fever or chills, weight loss, shortness of breath, chest pain, shoulder, neck or low back pain, dizziness, balance issues, weakness, upper or lower extremity paresthesia, distal extremity swelling or pain, bladder or bowel dysfunction, or saddle anesthesia. Oswestry Low Back Disability Score=11 (mild disability) Location: Mid thoracic pain with radiation to both sides, right>left Duration: Chronic pain, worsening for past 2 years Characteristics of symptom or complaint: Aching, burning, stabbing, tingling, tiring, numbness Aggravating or associated factors: Bending down or forward, lifting, pulling, prolonged sitting, ADLs, sleep Relieving factors: Tylenol, NSAIDs, methocarbamol, lidocaine patch Treatment: PT and Chiropractic therapy, home exercise program [facility] Medical History Physical exam Tiredness VENANCIO (generalized anxiety disorder) History of multiple miscarriages Complete Threatened Early stage of History of demise, not currently Well woman exam Mild recurrent major depression Insomnia demise Surgical History H/O dilation and curettage Family History (Updated 01/04/24 @ 14:14 by DAYO Campbell) Mother Fibromyalgia Breast cancer, Onset Age: 44 Father No problems noted. Maternal Grandfather Colon polyps Social History Housing: Apartment Alcohol intake: current Alcohol intake frequency: holidays/special occasions only Patient Tobacco Use Status: Never used Tobacco e-Cigarette/Vaping Use: Never Used Second Hand Smoke Exposure: No service: No Current occupational status: employed Current occupational exposures/hazards: No Cognitive needs: No Hearing needs: No Vision needs: No Female Reproductive History Menstrual Age of Menarche: 9 Review of Systems Const All systems reviewed & are unremarkable except as noted in HPI and below Physical Exam Vital Signs: Last Vital Signs Pulse 98 02/17/24 13:05 Resp 16 02/17/24 13:05 BP 116/76 02/17/24 13:05 Pulse Ox 98 02/17/24 13:05 Oxygen Delivery Method Room Air 02/17/24 13:05 BMI result Body Mass Index 25.9 General: Appears afebrile. Alert and oriented. Mood and affect appropriate. Follows and participates in conversation appropriately. Respiratory effort is unlabored. No cough. Able to transition from sit to stand unassisted. Ambulates with bilaterally normal heel strike and toe off. Neck Neck: Yes full ROM, Yes no lymphadenopathy, Yes supple, No anterior neck swelling, Yes no JVD, No prominent supraclavicular fat pad and No prominent dorsocervical fat pad Chest Chest palpation & inspection: normal inspection of the chest and no localized rib tenderness General: Yes no CVA tenderness Back/Spine/Pelvis Back: no CVA tenderness Cervical Spine: cervical ROM normal, cervical muscular tenderness, cervical spasm, No Cervical spine tenderness and No step off deformity Thoracic/Lumbar Spine: thoracic and lumbar spine normal to inspection, No Thoracic/lumbar spine scar(s), Lasegue's sign negative, straight leg raise negative bilaterally, pain with thoraco-lumbar ROM, paraspinal muscle tenderness, thoraco-lumbar ROM limited, Thoracic/lumbar scoliosis (mild thoracic), thoracic spinal tenderness (mid to lower spine) and No lumbar spinal tenderness Pelvis: no buttock tenderness Sacroiliac joints: bilaterally nontender Extrem General: Yes capillary refill normal, Yes no clubbing, cyanosis or edema and Yes no calf tenderness Results Reviewed Results Reviewed: XR THORACIC SPINE 12/29/23 CLINICAL INFORMATION: Thoracic spine pain FINDINGS: The visualized thoracic vertebrae are intact with mild lower thoracic levoscoliosis which may be positional. Intervertebral disc spaces are normal. IMPRESSION: 1. Normal thoracic spine x-ray. 2. No fracture or dislocation of thoracic spine is seen. Assessment & Plan Assessment & Plan (1) Thoracic spine pain: Code(s): M54.6 - Pain in thoracic spine Category: Medical (2) Thoracic radiculitis: Code(s): M54.14 - Radiculopathy, thoracic region Category: Medical (3) Levoscoliosis of thoracic spine: Code(s): M41.84 - Other forms of scoliosis, thoracic region Category: Medical Plan MRI of the thoracic spine to assess for neural integrity and compression as well as follow up on midline tenderness in the lower thoracic spine. Patient will return to the clinic to discuss results of the MRI findings when it is done and consider interventional therapy as indicated. Scripts provided for lidocaine patches and gabapentin. Side effects and precautions were discussed with patient. Encouraged to continue home exercise program for core strengthening and flexibility, good posture, adequate hydration, ice and heat therapy, NSAIDs p.r.n., Tylenol, and muscle relaxant. All questions and concerns have been answered and patient agreed with the treatment plan. Follow-up for MRI results and sooner as needed. Orders: Orders MR thoracic spine wo con 02/17/24 M41.84 - Other forms of scoliosis, thoracic region, M54.14 - Radiculopathy, thoracic region, M54.6 - Pain in thoracic spine Medications: New gabapentin 300 mg PO BEDTIME 30 caps 0RF pain 30 days M41.84 - Other forms of scoliosis, thoracic region, M54.14 - Radiculopathy, thoracic region, M54.6 - Pain in thoracic spine lidocaine 5% 1 patch topically; 30 ea 3RF pain 30 days M41.84 - Other forms of scoliosis, thoracic region, M54.6 - Pain in thoracic spine Coding Level of Care Code New Pt Level 4 (26549) Complex EM visit Add On G2211 Diagnoses Thoracic spine pain M54.6 Thoracic radiculitis M54.14 Levoscoliosis of thoracic spine M41.84
== END 2024-02-17 13:37 | disposition home or self-care (01) ==
PROVIDERS: PCP Internal Medicine; Visit Provider Nurse Practitioner Family
DX: M54.6 Pain in thoracic spine (principal); M54.14 Radiculopathy, thoracic region; M41.84 Other forms of scoliosis, thoracic region
CPT/HCPCS: 99204; G2211

== ENCOUNTER → 2024-02-17 12:56 | Outpatient (BNVA) | payer OTHER, SELFPAY | PROVIDERS: PCP Internal Medicine; Visit Provider Nurse Practitioner Family | DX: M54.6 Pain in thoracic spine (principal); M54.14 Radiculopathy, thoracic region; M41.84 Other forms of scoliosis, thoracic region | CPT/HCPCS: 99202 ==

== ENCOUNTER 2024-06-20 15:54 | Outpatient (RCR) | payer OTHER, SELFPAY ==
--- NOTE | 2024-05-03 15:18 | MHC.PT.EP ---
[facility] [place] Office [place] [facility] [place] Office [address] Shay Duran [address] [phone] F: [phone] F: [phone] F: [phone] F: [phone] Physical Therapy Plan of Care Date of Evaluation: 05/03/24 Date of Surgery: N/A Diagnosis: levoscoliosis of thoracic spine (RL) Assessment: pt is a 28 y/o female presenting to physical therapy w/ referring diagnosis of levoscoliosis of thoracic spine. Impairments include pain, decreased range of motion, decreased strength, impaired functional mobility, impaired postural awareness, and altered ambulation mechanics. pt is a good candidate for skilled PT due to age, potential remediation of impairments, typical disease/condition progression and prognosis, comorbidities, and motivation. pt would benefit from skilled PT intervention to provide a tailored strengthening and stretching exercise program, functional training, gait training, postural re-training, neuromuscular re-education, modalities as needed for pain, equipment safety demonstration. Frequency and Duration: The patient will be seen 2x/wk for 4 wks Short Term Goals: pt will be I w/ HEP to promote self-management of condition. pt will demo proper sitting posture w/ lumbar roll to promote neutral spine w/ seated postures at work. Electrocardiographic Technician Goals: pt will improve B periscap strength to at least 4/5 in all planes to promote upright seated posture. pt will report a statistically significant improvement in self-reported outcome, Brent, to promote return to PLOF. Treatment Plan: Modalities to reduce pain, spasms and effusion. Manual therapy to restore motion and function. Therapeutic exercise to improve strength and flexibility. Neuromuscular re-education for posture and balance. Therapeutic activities to return to functional activities of daily living. Electronically signed by: Tahira Ingram PT, DPT Please sign and return to therapist. Thank you for your referral.
--- NOTE | 2024-07-05 14:41 | MHC.PT.DC ---
[facility] [place] Office [place] Office [place] Office [address] Shay Duran [address] [facility] [phone] F: [phone] F: [phone] F: [phone] F: [phone] Physical Therapy Discharge Report Diagnosis: levoscoliosis of thoracic spine (RL) Date of Surgery: N/A Date of Evaluation: 05/03/24 Date of Discharge: 07/05/24 Treatments to Date: 6 Cancellations to Date: 5 No Shows to Date: 1 Discharge Status: Recommend MD Follow-up Visit Non-compliance Discharge Summary: The patient was reporting persistent back pain despite education on postural awareness, posture at work, lumbothoracic stretching/mobility, and core and pelvic stability exercises. She had poor attendance due to schedule conflicts with work and her family's needs. Overall, she seemed very anxious regarding her pain which most likely was causing some perseveration on her symptoms. She is discharged from this physical therapy plan of care due to difficulty making it to her appointments. Electronically signed by: Tahira Ingram PT, DPT Please sign and return to therapist. Thank you for your referral.
== END 2024-07-05 14:41 | disposition home or self-care (01) ==
LOC: HO.PT 15:54
PROVIDERS: PCP Internal Medicine; Visit Provider Nurse Practitioner Family
DX: M54.6 Pain in thoracic spine (principal); M54.14 Radiculopathy, thoracic region; M41.84 Other forms of scoliosis, thoracic region
CPT/HCPCS: 97110; 97140; 97161; 97530

== ENCOUNTER 2024-07-12 15:21 | Outpatient (REF) | payer OTHER, SELFPAY ==
[2024-07-12 16:19] LABS: MANUAL DIFF FLAG NO
[2024-07-12 17:06] LABS: Basophils Percent Auto 0.6 % (0-2); Eosinophils Absolute Auto 0.1 X10*3/uL (0.0-0.4); Eosinophils Percent Auto 1.6 % (0-4); Hematocrit 38.7 % (37.0-47.0); Hemoglobin 12.8 g/dl (12.0-16.0); Imm Gran Abs Auto 0.02 X10*3/uL (0.00-0.03); Imm Gran Pct Auto 0.3 % (0.0-0.4); Lymphocytes Absolute Auto 2.3 X10*3/uL (1.2-4.9); Lymphocytes Percent Auto 33.4 % (20-40); Mean Corpuscular HGB Conc 33.1 g/dl (31.0-35.0); Mean Corpuscular Volume 87.6 fL (80.0-98.0); Mean Platelet Volume 9.5 fL (9.4-12.3); Monocytes Absolute Auto 0.5 X10*3/uL (0.1-1.2); Neutrophils Percent Auto 57.1 % (45-73); Platelet Count 302 X10*3/uL (160-400); Red Blood Count 4.42 X10*6/uL (4.20-5.50)
[2024-07-12 17:54] LABS: Alanine Aminotransferase 22 U/L (0-31); Albumin Level 4.6 g/dL (3.5-5.0); Alkaline Phosphatase 73 U/L (39-117); Anion Gap 12 (12-20); Aspartate Amino Transferase 20 U/L (5-31); Bilirubin Total 0.7 mg/dL (0.0-1.0); Blood Urea Nitrogen 15 mg/dL (9-16); Calcium 9.8 mg/dL (8.4-10.2); Carbon Dioxide 28 mmol/L (22-29); Chloride 105 mmol/L (96-108); Estimated Glomerular Filt Rate > 60; Glucose Random 93 mg/dL (60-115); Potassium 4.2 mmol/L (3.3-5.1); Sodium 141 mmol/L (135-145)
[2024-07-12 17:59] LABS: Free T4 (Free Thyroxine) 1.09 ng/dL (0.71-1.85); TSH reflex Free T4 0.46 uIU/mL (0.32-4.0)
[2024-07-12 18:13] LABS: Folate 11.8 ng/mL (> or = 4.0); Vitamin B12 589 pg/mL (200-900)
[2024-07-17 11:19] LABS: Anti Nuclear Antibody Screen NEGATIVE (NEGATIVE)
== END 2024-07-12 15:22 | disposition home or self-care (01) ==
LOC: HO.LAB 15:21
PROVIDERS: PCP Internal Medicine
DX: M54.14 Radiculopathy, thoracic region (principal); M41.84 Other forms of scoliosis, thoracic region; R53.83 Other fatigue
CPT/HCPCS: 36415; 80053; 82306; 82607; 82746; 84439; 84443; 85025; 86038; 99212

== ENCOUNTER 2024-07-12 15:21 | Outpatient (AMB) | payer OTHER, SELFPAY ==
--- NOTE | 2024-07-12 15:25 | MHC.PC.OV ---
Vital Signs 07/12/24 15:27 Height 5 ft 2 in Weight 135 lb 8 oz BMI 24.8 BP 132/62 Blood Pressure Location Lt brachial Position Sitting Pulse 49 L Pulse Source Pulse Oximeter Temp 97.5 F Temp Source Temporal Artery Scan Pulse Oximetry (%) 93 Oxygen Delivery Method Room Air Intake Visit Reasons: Severe Back Pain/ Requesting MRI Intake Note: Patient is here to follow up on Severe back pain, requesting MRI. Karate Teacher Required: No Varnishing Unit Tool Setter: Not Required per policy Accompanied by: Self / Same As Patient Allergies pollen extracts Allergy (Intermediate, Verified 07/12/24 15:37) Itchy Eyes, runny nose No Known Drug Allergies Allergy (Unknown, Verified 07/12/24 15:37) none Medication List - Last Reconciled 07/12/24 by Regine Bustos PA-C cetirizine (All Day Allergy (cetirizine)) 10 mg PO DAILY PRN 90 days cholecalciferol (vitamin D3) 25 mcg PO DAILY 90 days famotidine (Pepcid) 40 mg PO BEDTIME PRN lidocaine 5% 1 patch topically; 30 days methocarbamol 750 mg PO TID PRN 30 days sumatriptan succinate 50 mg PO Q2-4H PRN 30 days Tobacco use date assessed: 07/12/24 Dental Screening Dental Screen Date: 07/12/24 Did you have a dental visit in the last 12 months?: Yes Did you have a dental problem in the last 6 months where you did not have access to dental care?: No Was dental information given to patient?: Patient has dentist HPI Severe Back Pain/ Requesting MRI HPI Details 28-year-old female with past medical history of GERD, insomnia, generalized anxiety disorder last seen 12/[address] Paiz coming in for acute problem.? In review of the notes, patient following with pain management last seen 01/2024 for back pain MRI of the thoracic spine was ordered and was completed however no follow up was done with pain management. Peesenting with severe back pain characterized as burning and stabbing with occasional heat sensation, primarily left-sided. Underwent PT, with temporary relief observed; an MRI was ordered but declined by insurance. Persistent fatigue and dizziness, possibly linked to hydration or nutritional deficiencies, noted . Mild scoliosis confirmed via X-ray, left side predominance, contributing to muscular discomfort. [facility] Medical History Physical exam Tiredness VENANCIO (generalized anxiety disorder) History of multiple miscarriages Complete Threatened Early stage of History of demise, not currently Well woman exam Mild recurrent major depression Insomnia demise Surgical History H/O dilation and curettage Family History Mother Fibromyalgia Breast cancer, Onset Age: 44 Father No problems noted. Maternal Grandfather Colon polyps Social History Housing: Apartment Alcohol intake: current Alcohol intake frequency: holidays/special occasions only Patient Tobacco Use Status: Never used Tobacco e-Cigarette/Vaping Use: Never Used Second Hand Smoke Exposure: No service: No Current occupational status: employed Current occupational exposures/hazards: No Cognitive needs: No Hearing needs: No Vision needs: No Female Reproductive History Menstrual Age of Menarche: 9 Questionnaire PHQ-9 Over the last 2 weeks, how often have you been bothered by any of the following problems? 1. Little interest or pleasure in doing things: not at all 2. Feeling down, depressed, or hopeless: not at all 3. Trouble falling or staying asleep, or sleeping too much: not at all 4. Feeling tired or having little energy: not at all 5. Poor appetite or overeating: not at all 6. Feeling bad about yourself - or that you are a failure or have let yourself or your family down: not at all 7. Trouble concentrating on things, such as reading the newspaper or watching television: not at all 8. Moving or speaking so slowly that other people could have noticed. Or the opposite - being so fidgety or restless that you have been moving around a lot more than usual: not at all 9. Thoughts that you would be better off or of hurting yourself in some way: not at all Total score: 0 Depression Screening Interpretation: Negative Depression Screening Done: Yes Source: Developed by Drs. Jian Medina, Valentina B.Michael Louis and colleagues, with an educational crys from [employer] Thrive Questionnaire Date Thrive assessed: 07/12/24 I am a: Patient What is your living situation today?: I have a steady place to live Within the past 12 months, did the food you bought not last and you didn't have the money to get more?: Never true Within the past 12 months, did you worry whether your food would run out before you got money to buy more?: Never true Do you have trouble paying for medicines?: No Do you have trouble getting transportation to medical appointments?: No Do you have trouble paying your heating and electricity bill?: No Do you have trouble taking care of your child, family member or friend?: No Do you have trouble with day-to-day activities such as bathing, preparing meals, shopping, managing finances, etc.?: No Are you currently unemployed and looking for a job?: No Are you interested in more education?: No Please select the resources that you would like help with: None Currently or been in a relationship where the following occur: No concerns reported THRIVE Score: 0 AUDIT C Alcohol Use Questionnaire (AUDIT-C) 1. How often do you have a drink containing alcohol?: Monthly or less 2. How many drinks containing alcohol do you have on a typical day when you are drinking?: 1 or 2 3. How often do you have six or more drinks on one occasion?: Less than monthly Total Score: 2 VENANCIO-7 AMB Questionnaire VENANCIO-7 Date VENANCIO - 7 assessed: 07/12/24 Feeling nervous, anxious, or on edge: 0 = Not at all Not being able to stop or control worryin = Not at all Worrying too much about different things: 0 = Not at all Trouble relaxin = Not at all Being so restless that it is hard to sit still: 0 = Not at all Becoming easily annoyed or irritable: 0 = Not at all Feeling afraid as if something awful might happen: 0 = Not at all Total VENANCIO-7 score (0-4 normal; 5-9 mild; 10-14 moderate; 15-21 severe): 0 Source: Developed by Drs. Jian Medina, Michael Dunn and colleagues, with an educational crys from [employer] Review of Systems Const Denies body aches, Denies chills, Denies fever(s), Denies headache(s) and Denies poor appetite Eyes Reports no additional complaints ENT Denies dizziness and Denies headache(s) Card Denies chest pain, Denies lightheadedness and Denies dyspnea Resp Denies cough and Denies dyspnea GI Reports no additional complaints Reports no additional complaints Musc Denies abnormal gait and Reports back pain Skin/Breast Reports system reviewed and no additional complaints, except as documented Neuro Denies abnormal gait, Denies dizziness and Denies headache(s) Psych Reports no additional complaints Physical exam (Primary Care) Vital Signs: Last Vital Signs Temp 97.5 F 07/12/24 15:27 Pulse 49 L 07/12/24 15:27 BP 132/62 07/12/24 15:27 Pulse Ox 93 07/12/24 15:27 Oxygen Delivery Method Room Air 07/12/24 15:27 BMI result Body Mass Index 24.8 Tobacco/Smoking Status: Tobacco use Status Tobacco use date assessed 07/12/24 07/12/24 15:31 Patient Tobacco Use Status Never used Tobacco 07/12/24 15:31 e-Cigarette/Vaping Use Never Used 07/12/24 15:31 PHQ-9: PHQ-9 Score PHQ-9: Total score 0 07/12/24 15:31 Depression Screening Interpretation: Negative Thrive Assessment: Date of Thrive Assessment Date Thrive assessed 07/12/24 07/12/24 15:31 Currently or been in a relationship where the following occur: No concerns reported Const General: cooperative, healthy appearing, comfortable and no acute distress Orientation/consciousness: patient oriented x3 [facility] Head: Yes normocephalic Ears: hearing grossly normal bilaterally General nose exam: Normal external nose present Eyes General: appearance normal, both eyes and all related structures Conjunctivae: conjunctivae normal Neck Neck: Yes full ROM and Yes no lymphadenopathy Resp Effort & Inspection: normal respiratory effort Auscultation: clear to auscultation bilaterally, no crackles, no rales, no rhonchi and no wheezes Cardio Rate: regular rate Rhythm: regular rhythm Back/Spine/Pelvis Other: No pain to palpation over the spine. Pain to palpation over left paraspinal muscle Skin General skin exam: no rashes or lesions noted Neuro General: patient oriented x3 Gait exam (Neuro): Normal gait present Extrem General: Yes normal to inspection, Yes full ROM and No edema Psych Affect: normal affect Attitude: cooperative Insight: Good insight present (Psych) Judgement: Good judgement present (Psych) Coding Level of Care Code Emily Pt Level 3 (18030) Diagnoses Thoracic radiculitis M54.14 Levoscoliosis of thoracic spine M41.84 Assessment & Plan Assessment & Plan (1) Thoracic radiculitis: Code(s): M54.14 - Radiculopathy, thoracic region Category: Medical Plan: The patient's severe back pain post childbirth has a potential association with mild scoliosis and muscular strain. Structured physical therapy has previously aided but not completely resolved the pain, necessitating further diagnostic imaging like an MRI, which will be reordered. Muscle relaxants may continue to be useful for symptomatic management alongside encouragement of muscle rolling techniques. Blood work is warranted to address fatigue, evaluating iron levels and other potential deficiencies. It is crucial for the patient to maintain adequate hydration and consult pain management should issues persist alongside any approval issues with imaging studies. (2) Levoscoliosis of thoracic spine: Code(s): M41.84 - Other forms of scoliosis, thoracic region Category: Medical Plan: See above Plan This note was constructed using voice recognition software. While every effort has been made to ensure accuracy and tacking machine operator, still areas may have been included sometimes these areas may affect the content or meeting of the given symptoms. Total time spent caring for the patient today was 20 minutes. This includes time spent before the visit reviewing the chart, time spent during the visit, and time spent after the visit and documentation. Patient was informed and verbally consented to the use of an ambient scribe for clinic note documentation during this visit. Orders: Orders RAJANI Reflex Titer and Pattern Today R53.83 - Other fatigue Comprehensive Met. Panel Today R53.83 - Other fatigue, Z00.00 - Encounter for general adult medical examination without abnormal findings Free T4 (Free Thyroxine) Today R53.83 - Other fatigue, Z00.00 - Encounter for general adult medical examination without abnormal findings MR thoracic spine wo con Today M41.84 - Other forms of scoliosis, thoracic region, M54.14 - Radiculopathy, thoracic region Complete Blood Count Auto Diff Today R53.83 - Other fatigue, Z00.00 - Encounter for general adult medical examination without abnormal findings TSH reflex Free T4 Today R53.83 - Other fatigue, Z00.00 - Encounter for general adult medical examination without abnormal findings Vitamin B12 and Folate Today R53.83 - Other fatigue, Z00.00 - Encounter for general adult medical examination without abnormal findings Vitamin D 25-OH Total Today R53.83 - Other fatigue, Z00.00 - Encounter for general adult medical examination without abnormal findings Medications: Refilled methocarbamol 750 mg PO TID 30 days PRN 90 tabs 0RF muscle spasm M41.84 - Other forms of scoliosis, thoracic region, M62.830 - Muscle spasm of back lidocaine 5% 1 patch topically; 30 days 30 ea 3RF pain M41.84 - Other forms of scoliosis, thoracic region, M54.6 - Pain in thoracic spine cetirizine (All Day Allergy (cetirizine)) 10 mg PO DAILY 90 days PRN 90 tabs 0RF allergy symptoms
[2024-07-12 15:27] VITALS: BP 132/62; PULSE 49; TEMP 36.4; O2SAT 93; BMI 24.8
--- OUTSIDE RECORDS SUMMARY | 2024-07-12 18:59 | XMS_ITS | Clinical Summary ---
Author Organization [facility] Address [address] [place] [address] Phone Care Team Providers Care Dental Surgery Doctor Name Role Phone Unavailable Primary Care Provider Unavailabl e Immunizations Immunization Administration Dates Next Due DTP 05/01/1997, 7,03/31/1996,01/29 DTaP 5 09/22/2000 H1N1 04/10/2009 HPV, Quadrivalent 06/24/2009,04/22/2008,02/18/20 Hep A, Adult 11/18/2014 Hep A, ped/adol 08/06/2013 Hep B, ped/adol 06/01/1996,01/30/1996,1995 Hib (PRP-T) 05/01/1997, 7,03/31/1996,01/29 IPV 06/01/1996,03/31/1996,01/30/1996 Influenza Split 06/11/2011 Influenza, injectable, quadrivalent 03/13/2015 MMR 05/01/2000,12/30/1996 Meningococcal Conj (Menactra) MCV4P 08/06/2013,1 OPV 09/22/2000 Td (adult) (MBL), 2 Lf tetan us toxoid, PF, adsorbed 08/16/2016 Tdap 02/17/2007 Varicella 04/22/2008,04/30/1999 Family History Relation Name Status Comments Brother Alive Brother: Alive and well Father Alive Father: Alive a nd well Mother Alive Mother: Alive a nd well Other Family history of Elevated cholesterol, Family history of Diabetes mellitus, Family history of Strabismus/amblyopia, Family history of *Thrombophilia Social History Tobacco Use Types Packs/Day Years Used Date Smoking Tobacco: Never Comments:Never smoker Comments Unknown Sex and Gender Information Value Date Recorded Sex Assigned at Not on file Legal Sex Female 4:57 PM EDT Gender Identity Not on file Sexual Orientation Not on file Last Filed Vital Signs Vital Sign Reading Time Taken Comments Blood Pressure 108/68 08/16/2016 12:00 AM EDT Pulse 83 08/16/2016 12:00 AM EDT Temperature 36.6 ??C (97.8 ??F) 08/16/2016 1 2:00 AM EDT Respiratory Rate - - Oxygen Saturation - - Inhaled Oxygen Concentration - - Weight 55.7 kg (122 lb 12.8 oz) 017 12:00 AM EDT Height 154.3 cm (5' 0.75 ) 08/16/2016 1 2:00 AM EDT Body Mass Index 23.39 08/16/2016 12:00 AM EDT Plan of Treatment Health Maintenance Due Date Last Done Comments Consider Men B Vaccine (1 of 2 - Bexsero 2-dose series) 2011 Influenza Vaccines (#1) 2023 03/13/2015, 06/11 COVID-19 Vaccine ( season) 2024 DTaP,Tdap,and Td Vaccines (8 - Td or Tdap) 08/16/2026 08/16/2016, 02/17/2007, 09/22/2000, Additional history exists Hepatitis B Vaccines Completed 06/01/1996, 01/30/1996, 1995 HIB Vaccines Completed 05/01/1997, 05/04, 03/31/1996, Additional history exists MMR Vaccines Completed 05/01/2000, 12/30/1996 IPV Vaccines Completed 09/22/2000, 05/04, 03/31/1996, Additional history exists Varicella Vaccines Completed 04/22/2008, 04/30/1999 HPV Vaccines Completed 06/24/2009, 04/02, 02/17/2007 Meningococcal Vaccine Completed 08/06/2013, 007 Hepatitis A Vaccines Completed 11/18/2014, 08/07/19 14 Men B Vaccine Aged Out No longer elig ible based on patient's age to complete this topic Pneumococcal Vaccine Aged Out No long er eligible based on patient's age to complete this topic Procedures * Due to [place] state law, this organization might not be sharing sensitive test results. Procedure Name Priority Date/Time Associated Diagnosis Comments CHLAMYDIA AND GONORRHEA, AMPLIFIED Routine 11/19/2014 2:18 PM EDT from Last 3 Months or Most Recently Relevant to Health Maintenance Results * Due to [place] state law, this organization might not be sharing sensitive test results. * Chlamydia and Gonorrhoea, Amplified (11/19/2014 2:18 PM EDT) URINE GC AMP PROBE NEGATIVE [facility] Comment: No Neisseria Gonorrhoeae RNA detected in this patient's sample (REFERENCE RANGE/NORMAL VALUE: NOT DETECTED) NOTE: This test uses dockmaster-mediated amplification method to detect rRNA from C.Trachomatis and N.Gonorrhoeae. A negative result does not preclude infection. In the case of a negative urine result, testing of an endocervical(female) or urethral(male) specimen is recommended if there is high clinical suspicion of infection. The performance characteristics of this test have not been evaluated in children. The Aptima Combo2 assay is not intended for the evaluation of suspected sexual abuse or for other medico-legal indications. The ordering provider should assess if the patient had consensual sex without risk of sexual abuse. Consult the [facility] if needed. Contact phone number . Therapeutic failure or success cannot be determined with the Aptima Combo2 assay since nucleic acid may persist following appropriate antimicrobial therapy. The Centers for Disease Control and Prevention (CDC) recommends confirmatory retesting using culture or a different nucleic acid amplification test when positive results occur, if indicated. Testing performed or reported by [facility], a Service of [facility], [address] [place] [address] Bernard Duke MD, PhD, General Manager Food URINE CHLAMYDIA AMP PROBE NEGATIVE [facility] Comment: No Chlamydia Trachomatis RNA detected in this patient's sample (REFERENCE RANGE/NORMAL VALUE: NOT DETECTED) 11/19/2014 2:18 PM EDT Narrative [facility] - 11/19/2014 2:18 PM EDT URINE CHLAMYDIA GC AMP PROBE us Adrianna Alicia NP LAB MICROBIOLOGY - GENERAL OR DERABLES Final Result [facility] [address] [place] [phone], from Last 3 Months or Most Recently Relevant to Health Maintenance
--- OUTSIDE RECORDS SUMMARY | 2024-07-12 18:59 | XMS_ITS | Encounter Summary ---
Author Organization [facility] Address [address] [place] [address] Phone Care Team Providers Care General Administrator Name Role Phone Shannan Jordan DO Primary Care Provider [phone] Encounter Details Date Type Department Care Team (Late st Contact Info) Description 07/23/2011 Documentation EM Family Medicine [address] [place] [address] Family Medicine, Physician [address], [place] [phone] Social History Tobacco Use Types Packs/Day Years Used Date Smoking Tobacco: Never Assessed Comments Unknown Sex and Gender Information Value Date Recorded Sex Assigned at Not on file Legal Sex Female 4:57 PM EDT Gender Identity Not on file Sexual Orientation Not on file documented as of this encounter Plan of Treatment Not on file documented as of this encounter Visit Diagnoses Not on filedocumented in this encounter Care Teams General Administrator Relationship Specialty Start Date End Date Shannan Jordan DO [address] [place] [address] PCP - General 12/10/16 10/31/22 documented as of this encounter
--- OUTSIDE RECORDS SUMMARY | 2024-07-12 18:59 | XMS_ITS | Encounter Summary ---
Author Organization [facility] Address [address] [place] [address] Phone Care Team Providers Care Tire Duster Name Role Phone Shannan Jordan DO Primary Care Provider [phone] Encounter Details Date Type Department Care Team (Late st Contact Info) Description 05/16/2013 Documentation EM Family Medicine [address] [place] [address] Family Medicine, Physician [address] [place] [place] [phone] Social History Tobacco Use Types Packs/Day Years [...] on filedocumented in this encounter Care Teams Tire Duster Relationship Specialty Start Date End Date Shannan Jordan DO [address] [place] [address] PCP - General 12/10/16 10/31/22 documented as of this encounter
--- OUTSIDE RECORDS SUMMARY | 2024-07-12 18:59 | XMS_ITS | Encounter Summary ---
Author Organization [facility] Address [address] [place] [address] Phone Care Team Providers Care Tail Sawyer Name Role Phone Shannan Jordan DO Primary Care Provider [phone] Encounter Details Date Type Department Care Team (Late st Contact Info) Description 07/08/2009 Documentation EM Family Medicine [address] [place] [address] Family Medicine, Physician [address], [place] [phone] Social History Tobacco Use Types Packs/Day Years [...] on filedocumented in this encounter Care Teams Tail Sawyer Relationship Specialty Start Date End Date Shannan Jordan DO [address] [place] [address] PCP - General 12/10/16 10/31/22 documented as of this encounter
--- OUTSIDE RECORDS SUMMARY | 2024-07-12 18:59 | XMS_ITS | Encounter Summary ---
Author Organization [facility] Address [address] [place] [address] Phone Care Team Providers Care Childcare Attendant Name Role Phone Shannan Jordan DO Primary Care Provider [phone] Encounter Details Date Type Department Care Team (Late st Contact Info) Description 07/09/2009 Documentation EM Family Medicine [address] [place] [address] Family Medicine, Physician [address] [place] [phone] Social History Tobacco Use Types Packs/Day Years [...] on filedocumented in this encounter Care Teams Childcare Attendant Relationship Specialty Start Date End Date Shannan Jordan DO [address] [place] [address] PCP - General 12/10/16 10/31/22 documented as of this encounter
--- OUTSIDE RECORDS SUMMARY | 2024-07-12 18:59 | XMS_ITS | Encounter Summary ---
Author Organization [facility] Address [address] [place] [address] Phone Care Team Providers Care Clinical Exercise Specialist Name Role Phone Shannan Jordan DO Primary Care Provider [phone] Encounter Details Date Type Department Care Team (Late st Contact Info) Description 08/03/2010 Documentation EM Family Medicine [address] [place] [address] Family Medicine, Physician [address] [phone] Social History Tobacco Use Types Packs/Day Years [...] on filedocumented in this encounter Care Teams Clinical Exercise Specialist Relationship Specialty Start Date End Date Shannan Jordan DO [address] [place] [address] PCP - General 12/10/16 10/31/22 documented as of this encounter
--- OUTSIDE RECORDS SUMMARY | 2024-07-12 18:59 | XMS_ITS | Encounter Summary ---
Author Organization [facility] Address [address] [place] [address] Phone Care Team Providers Care Material Flow Analyst Name Role Phone Shannan Jordan DO Primary Care Provider [phone] Encounter Details Date Type Department Care Team (Late st Contact Info) Description 05/31/2012 Documentation EM Family Medicine [address] [place] [address] Family Medicine, Physician [address] [phone] Social History Tobacco Use Types Packs/Day Years [...] on filedocumented in this encounter Care Teams Material Flow Analyst Relationship Specialty Start Date End Date Shannan Jordan DO [address] [place] [address] PCP - General 12/10/16 10/31/22 documented as of this encounter
--- OUTSIDE RECORDS SUMMARY | 2024-07-12 18:59 | XMS_ITS | Encounter Summary ---
Author Organization [facility] Address [address] [place] [address] Phone Care Team Providers Care Tractor Operator Name Role Phone Shannan Jordan DO Primary Care Provider [phone] Encounter Details Date Type Department Care Team (Late st Contact Info) Description 09/30/2009 Documentation EM Family Medicine [address] [place] [address] Family Medicine, Physician [address] [phone] Social History Tobacco Use Types Packs/Day Years [...] on filedocumented in this encounter Care Teams Tractor Operator Relationship Specialty Start Date End Date Shannan Jordan DO [address] [place] [address] PCP - General 12/10/16 10/31/22 documented as of this encounter
--- OUTSIDE RECORDS SUMMARY | 2024-07-12 18:59 | XMS_ITS | Encounter Summary ---
Author Organization [facility] Address [address] [place] [address] Phone Care Team Providers Care Train Examiner Name Role Phone Shannan Jordan DO Primary Care Provider [phone] Encounter Details Date Type Department Care Team (Late st Contact Info) Description 07/23/2011 Documentation EM Family Medicine [address] [place] [address] Family Medicine, Physician [address], [place] [phone] Social History Tobacco Use Types Packs/Day Years [...] on filedocumented in this encounter Care Teams Train Examiner Relationship Specialty Start Date End Date Shannan Jordan DO [address] [place] [address] PCP - General 12/10/16 10/31/22 documented as of this encounter
--- OUTSIDE RECORDS SUMMARY | 2024-07-12 18:59 | XMS_ITS | Encounter Summary ---
Author Organization [facility] Address [address] [place] [address] Phone Care Team Providers Care Pearl Peller Name Role Phone Shannan Jordan DO Primary Care Provider [phone] Encounter Details Date Type Department Care Team (Late st Contact Info) Description 07/08/2009 Documentation EM Family Medicine [address] [place] [address] Family Medicine, Physician [address] [place] [phone] Social History Tobacco Use Types Packs/Day Years [...] on filedocumented in this encounter Care Teams Pearl Peller Relationship Specialty Start Date End Date Shannan Jordan DO [address] [place] [address] PCP - General 12/10/16 10/31/22 documented as of this encounter
--- OUTSIDE RECORDS SUMMARY | 2024-07-12 18:59 | XMS_ITS | Encounter Summary ---
Author Organization [facility] Address [address] [place] [address] Phone Care Team Providers Care [employer] Flatbed Truck Driver Name Role Phone Shannan Jordan DO Primary Care Provider [phone] Encounter Details Date Type Department Care Team (Late st Contact Info) Description 12/16/2016 Conversion Encounter [facility] [address] [place] [address] Social History Tobacco Use Types Packs/Day Years [...] on filedocumented in this encounter Care Teams [employer] Flatbed Truck Driver Relationship Specialty Start Date End Date Shannan Jordan DO [address] [place] [address] PCP - General 12/10/16 10/31/22 documented as of this encounter
--- OUTSIDE RECORDS SUMMARY | 2024-07-12 18:59 | XMS_ITS | Clinical Summary ---
Author Organization [facility] Address [address] [place] [address] Care Team Providers Care Parking Lot Spotter Name Role Phone Amelie Valentino MD Primary Care Provider [phone] Surgical History Surgery Date Site/Laterality Comments OTHER SURGICAL HISTORY 01/21/2023 PROCEDURE: MS DILATION & CURETTAGE DX&/THER NONOBSTETRIC; COMMENT: Pathology Benign Medical History Medical History Date Comments Mixed anxiety and depressive disorder DX:Mixed anxiety and depressive disorder Family History Medical History Relation Name Comments No Known Problems Brother No Known Problems Father Other: fibromyalgia Mother Breast cancer Neg Hx Colon cancer Neg Hx Ovarian cancer Neg Hx Pancreatic cancer Neg Hx Uterine cancer Neg Hx Relation Name Status Comments Brother Alive Father Alive Mother Alive Social History Tobacco Use Types Packs/Day Years Used Date Smoking Tobacco: Never Smokeless Tobacco: Never Alcohol Use Standard Drinks/Week Comments Yes 0 (1 standard drink = 0.6 oz pur e alcohol) Comments Unknown Sex and Gender Information Value Date Recorded Sex Assigned at Not on file Legal Sex Female 9:07 AM EST Gender Identity Not on file Sexual Orientation Not on file Obstetrics History Last Filed Vital Signs Vital Sign Reading Time Taken Comments Blood Pressure 104/63 12/20/2023 1:02 PM EDT Sitting L Arm Pulse 75 08/08/2023 1:34 PM EDT Temperature - - Respiratory Rate - - Oxygen Saturation - - Inhaled Oxygen Concentration - - Weight 63.2 kg (139 lb 6.4 oz) 12/20/2023 1:02 PM EDT Height 160 cm (5' 3 ) 12/20/2023 1:02 PM EDT Body Mass Index 24.69 12/20/2023 1:02 PM EDT Plan of Treatment Health Maintenance Due Date Last Done Comments Hepatitis B Vaccines (1 of 3 - 19+ 3-dose series) 10/27/2014 Depression Screening 04/04/2022 HIV Screening 04/04/2022 Hepatitis C Screening 04/04/2022 Social Influencers of Health Screening 04/04/2022 COVID-19 Vaccine (1 - 2023-2 5 season) 2024 Influenza Vaccine (#1) 2024 03/03/2022 Cervical Cancer Screening: P ap Smear 12/03/2024 12/03/2021 DTaP,Tdap,and Td Vaccines (2 - Td or Tdap) 03/03/2032 03/03/2022 HIB Vaccines Aged Out No longer eligi ble based on patient's age to complete this topic HPV Vaccines Aged Out No longer eligi ble based on patient's age to complete this topic Hepatitis A Vaccines Aged Out No long er eligible based on patient's age to complete this topic IPV Vaccines Aged Out No longer eligi ble based on patient's age to complete this topic MMR Vaccines Aged Out No longer eligi ble based on patient's age to complete this topic Meningococcal ACWY Vaccine Aged Out N o longer eligible based on patient's age to complete this topic Meningococcal B Vacine Aged Out No lo nger eligible based on patient's age to complete this topic Pneumococcal Vaccine: Pediat rics (0 to 5 Years) and At-Risk Patients (6 to 64 Years) Aged Out No longer eligi ble based on patient's age to complete this topic RSV Immunization Patients Un nohemi 20 months Aged Out No longer eligible b ased on patient's age to complete this topic Varicella Vaccines Aged Out No longer eligible based on patient's age to complete this topic Procedures Procedure Name Priority Date/Time Associated Diagnosis Comments PAP SMEAR Routine 12/03/2021 from Last 3 Months or Most Recently Relevant to Health Maintenance Results * Pap smear (12/03/2021) 12/03/2021 Narrative HISTORICAL TESTING LAB RESULTING AGENCY - 12/09/2021 9:46 AM EDT [id number] THINPREP PAP, IMAGED: NEGATIVE FOR SQUAMOUS INTRAEPITHELIAL LESION AND MALIGNANCY . KAMALA ALCARAZ(ASCP) (CASE ELECTRONICALLY SIGNED 12 08 2021) ADEQUACY: SATISFACTORY ENDOCERVICAL/TRANSFORMATION ZONE COMPONENT ABSENT. SOURCE: THINPREP PAP HPV IF ASCUS, CERVICAL, IMAGED CLINICAL INFORMATION: HPV IF DIAGNOSIS OF ASCUS. -LMP 08/19/21, Z12.4 us Abdoul George CN LAB CYTOLOGY ORDERABLES Final Result HISTORICAL TESTING LAB RESULTING AGENCY from Last 3 Months or Most Recently Relevant to Health Maintenance Care Teams Parking Lot Spotter Relationship Specialty Start Date End Date Amelie Valentino MD [address] [facility] , [address] [facility] TERRANCE Ayala PCP - General 05/06/22
== END 2024-07-12 15:55 | disposition home or self-care (01) ==
LOC: HO.HMCH 15:22
PROVIDERS: PCP Internal Medicine
DX: M54.14 Radiculopathy, thoracic region (principal); M41.84 Other forms of scoliosis, thoracic region

== ENCOUNTER 2024-07-27 15:08 | Outpatient (AMB) | payer OTHER, SELFPAY ==
--- NOTE | 2024-07-27 15:13 | A.OFFVIS_ITS ---
Vital Signs 07/27/24 15:17 Height 5 ft 2 in Weight 140 lb BMI 25.6 BP 124/60 Blood Pressure Location Rt brachial Position Sitting Pulse 78 Pulse Source Pulse Oximeter Pulse Oximetry (%) 98 Oxygen Delivery Method Room Air Intake Visit Reasons: Back Pain Intake Note: Pain today 5 Cytogenetic Technician Required: No Accompanied by: Self / Same As Patient Allergies pollen extracts Allergy (Intermediate, Verified 07/27/24 15:17) Itchy Eyes, runny nose No Known Drug Allergies Allergy (Unknown, Verified 07/27/24 15:17) none HPI Comments Details: The patient is a 28-year-old female presenting for follow up for lower back and thoracic spine pain, which she attributes to a long-standing diagnosis of scoliosis and potentially arthritis. Chronic low back pain has been a persistent issue, diagnosed during her youth, with fluctuating severity. It remains localized around the waistline without radiating down the legs, possibly exacerbated by her scoliosis which contributes to consistent muscle spasms. She is awaiting a scheduled thoracic MRI to better assess the situation and review potential interventions, having scoliosis-oriented issues leading to thoracic discomfort. 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 For symptomatic control, non-pharmacological methods such as stretching exercises, warm showers, and topical therapies have been utilized, contrasting with ibuprofen avoided due to GERD considerations. Additionally, the patient experiences anxiety which compounds her pain levels, manifesting as muscle tightening during stress periods. Current management includes counseling but no psychiatric medications. Awareness of familial fibromyalgia has heightened her concerns, with chronic pain episodes leading her to suspect a similar condition despite lacking a concrete diagnosis. - Onset: Chronic variability, exacerbations with scoliosis, scoliosis-related pain in thoracic spine. - Quality: Localized to lower back near waistline; persistent muscle spasms. - Location: Lower back, Thoracic spine. - Exacerbating factors: Anxiety, stress, maintaining upright posture. - Relieving factors: Stretching, warm showers, lidocaine patches, heating pads. - Interference: Care for 2-year-old child, work, ADLs, energy for daily activities limited by drowsiness from prior gabapentin use. - Affect: Anxiety exacerbates pain; counselor-support ongoing. - Analgesia: Lidocaine patches, methocarbamol as needed, previously ineffective gabapentin. - Adverse Effects: Sedation from gabapentin; GERD mitigates use of ibuprofen. - Activities of Daily Living: Pain limits ability to energetically care for a child or work as OA. - Aberrant Drug Related Behaviors: None reported, adherence to prescribed regimens. PRIOR: Patient is a pleasant 28 years old female with history of mid lower thoracic levoscoliosis, presents today for initial evaluation of chronic mid back pain. Denies any recent trauma, injury, or falls. Patient presents with localized tenderness of lower thoracic midline back pain with radiation to the right side and at times to the left, associated with burning, tingling, numbness, and stabbing pain sensation. Denies any previous spine injections or surgery. 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 She takes care of her 1-1/2-year son at home. Reports increased mid back pain when she gets up at night to tender care to her child as well as history of significant mid back pain with and holding her son. Pain affects her daily activities and functioning, sleep, mood, work, and social interactions. Pain is constant and worse during the day and middle of the night which she rates at 8-10/10 and least severe at 5/10 at rest and mornings. Patient has attended physical therapy and more recently chiropractor adjustments with minimal improvements. She continues to live a physically active lifestyle and regularly performs home exercise program. Denies any fever or chills, weight loss, shortness of breath, chest pain, shoulder, neck or low back pain, dizziness, balance issues, weakness, upper or lower extremity paresthesia, distal extremity swelling or pain, bladder or bowel dysfunction, or saddle anesthesia. Oswestry Low Back Disability Score=11 (mild disability) Location: Mid thoracic pain with radiation to both sides, right>left Duration: Chronic pain, worsening for past 2 years Characteristics of symptom or complaint: Aching, burning, stabbing, tingling, tiring, numbness Aggravating or associated factors: Bending down or forward, lifting, pulling, prolonged sitting, ADLs, sleep Relieving factors: Tylenol, NSAIDs, methocarbamol, lidocaine patch Treatment: PT and Chiropractic therapy, home exercise program [facility] Medical History Physical exam Tiredness VENANCIO (generalized anxiety disorder) History of multiple miscarriages Complete Threatened Early stage of History of demise, not currently Well woman exam Mild recurrent major depression Insomnia demise Surgical History H/O dilation and curettage Family History Mother Fibromyalgia Breast cancer, Onset Age: 44 Father No problems noted. Maternal Grandfather Colon polyps Social History Housing: Apartment Alcohol intake: current Alcohol intake frequency: holidays/special occasions only Patient Tobacco Use Status: Never used Tobacco e-Cigarette/Vaping Use: Never Used Second Hand Smoke Exposure: No service: No Current occupational status: employed Current occupation: [employer] OA at [employer] Current occupational exposures/hazards: No Cognitive needs: No Hearing needs: No Vision needs: No Female Reproductive History Menstrual Age of Menarche: 9 Review of Systems Const Details: - Musculoskeletal: Reports thoracic and lower back pain, scoliosis. - Neurological: Denies leg radiation of pain. - Gastrointestinal: Reports GERD, avoids NSAIDs. - Psychiatric: Reports anxiety; chronic pain exacerbated by stress. - Sleep: Insomnia noted, affects daily functioning. - Family History: Concern for fibromyalgia due to maternal diagnosis. All systems reviewed & are unremarkable except as noted in HPI and below Physical Exam General: Appears afebrile. Alert and oriented. Mood and affect appropriate. Follows and participates in conversation appropriately. Respiratory effort is unlabored. No cough. Able to transition from sit to stand unassisted. Ambulates with bilaterally normal heel strike and toe off. Neck Neck: Yes full ROM, Yes no lymphadenopathy, Yes supple, No anterior neck swelling, Yes no JVD, No prominent supraclavicular fat pad and No prominent dorsocervical fat pad General: Yes no CVA tenderness Back/Spine/Pelvis Other: Lumbar extension reproduces moderate pain. Positive facet loading bilaterally. Flexion is intact and reproduces mild pain. Mild midline tenderness to palpation in the thoracic or lumbar spine. Back: no CVA tenderness Cervical Spine: cervical ROM normal, cervical muscular tenderness, pain with cervical ROM and No Cervical spine tenderness Thoracic/Lumbar Spine: thoracic and lumbar spine normal to inspection, No Thoracic/lumbar spine scar(s), Lasegue's sign negative, straight leg raise negative bilaterally, paraspinal muscle tenderness, thoraco-lumbar ROM limited, Thoracic/lumbar scoliosis (mild thoracic), thoracic spinal tenderness (mid to lower spine) and lumbar spinal tenderness (L4-S1) Pelvis: no buttock tenderness Sacroiliac joints: bilaterally nontender Extrem General: Yes capillary refill normal, Yes no clubbing, cyanosis or edema and Yes no calf tenderness Results Reviewed Results Reviewed: XR THORACIC SPINE 12/29/23 CLINICAL INFORMATION: Thoracic spine pain FINDINGS: The visualized thoracic vertebrae are intact with mild lower thoracic levoscoliosis which may be positional. Intervertebral disc spaces are normal. IMPRESSION: 1. Normal thoracic spine x-ray. 2. No fracture or dislocation of thoracic spine is seen. Normal lumbar spine X-ray from 2019. - Scheduled MRI: Thoracic MRI pending for August 04. Assessment & Plan Assessment & Plan (1) Thoracic spine pain: Code(s): M54.6 - Pain in thoracic spine Category: Medical (2) Thoracic radiculitis: Code(s): M54.14 - Radiculopathy, thoracic region Category: Medical (3) Levoscoliosis of thoracic spine: Code(s): M41.84 - Other forms of scoliosis, thoracic region Category: Medical (4) Muscle spasm of back: Code(s): M62.830 - Muscle spasm of back Category: Medical (5) Low back pain: Code(s): M54.50 - Low back pain, unspecified Category: Medical (6) Lumbar spondylosis: Code(s): M47.816 - Spondylosis without myelopathy or radiculopathy, lumbar region Category: Medical Plan Following the thoracic MRI and lumbar spine xray, we will assess the scoliosis- associated thoracic and lumbar pain and consider interventional options including nerve blocks and possibly RFA or Sprint PNS trial for extended relief. Given the patient's history with GERD, supplementing with non-NSAID anti- inflammatories like turmeric and magnesium is advised. The patient's anxiety and its impact on pain necessitate ongoing counseling and stress management. Due to past drowsiness from gabapentin, similar medications will be tried with caution. Non-pharmacological measures such as warm showers and heat therapy will remain part of her management. Clinical follow-up post-MRI/x-ray is planned to review imaging results and modify the management plan accordingly. All questions and concerns have been answered and patient agreed with the treatment plan. Follow-up for MRI/xray results and sooner as needed. Patient was informed and verbally consented to the use of an ambient scribe for clinic note documentation during this visit. Orders: Orders XR lumbar spine 4V min Today M47.816 - Spondylosis without myelopathy or radiculopathy, lumbar region, M54.50 - Low back pain, unspecified, M62.830 - Muscle spasm of back Coding Level of Care Code Est Pt Level 4 (46975) Complex EM visit Add On G2211 Diagnoses Thoracic spine pain M54.6 Thoracic radiculitis M54.14 Levoscoliosis of thoracic spine M41.84 Muscle spasm of back M62.830 Low back pain M54.50 Lumbar spondylosis M47.816
[2024-07-27 15:17] VITALS: BP 124/60; PULSE 78; O2SAT 98; BMI 25.6
== END 2024-07-27 15:36 | disposition home or self-care (01) ==
LOC: HO.PMC 15:08
PROVIDERS: PCP Internal Medicine; Visit Provider Nurse Practitioner Family
DX: M54.6 Pain in thoracic spine (principal); M54.14 Radiculopathy, thoracic region; M41.84 Other forms of scoliosis, thoracic region; M62.830 Muscle spasm of back; M54.50 Low back pain, unspecified; M47.816 Spondylosis without myelopathy or radiculopathy, lumbar region
CPT/HCPCS: 99214; G2211

== ENCOUNTER → 2024-07-27 15:08 | Outpatient (BNVA) | payer OTHER, SELFPAY | PROVIDERS: PCP Internal Medicine; Visit Provider Nurse Practitioner Family | DX: M54.6 Pain in thoracic spine (principal); M54.14 Radiculopathy, thoracic region; M41.84 Other forms of scoliosis, thoracic region; M62.830 Muscle spasm of back; M54.50 Low back pain, unspecified; M47.816 Spondylosis without myelopathy or radiculopathy, lumbar region | CPT/HCPCS: 99212 ==

== ENCOUNTER 2024-08-09 14:48 | Outpatient (REF) | payer OTHER, SELFPAY ==
--- NOTE | ~2024-08-09 | XR_ITS ---
CLINICAL HISTORY: M54.50 - Low back pain, unspecified 5 views lumbar spine Comparison: None Findings: Normal vertebral body alignment. There is suspected left spondylolysis at L5-S1. There is no evidence of spondylolisthesis. No significant degenerative change. IMPRESSION: No acute findings. Possible spondylolysis on the left at L5-S1. This document has been electronically signed by: Deep Beatty MD on 08/10/2024 11:37:40
--- OUTSIDE RECORDS SUMMARY | 2024-08-09 17:28 | XMS_ITS | Encounter Summary ---
Author Organization [facility] Address [address] [place] [address] Phone Care Team Providers Care Frame Straightener Name Role Phone Shannan Jordan DO Primary Care Provider [phone] Encounter Details Date Type Department Care Team (Late st Contact Info) Description 07/08/2009 Documentation EM Family Medicine [address] [place] [address] Family Medicine, Physician [address], [place] [id number] Social History Tobacco Use Types Packs/Day Years [...] on filedocumented in this encounter Care Teams Frame Straightener Relationship Specialty Start Date End Date Shannan Jordan DO [address] [place] [address] PCP - General 12/10/16 10/31/22 documented as of this encounter
--- OUTSIDE RECORDS SUMMARY | 2024-08-09 17:28 | XMS_ITS | Clinical Summary ---
Author Organization [facility] Address [address] [place] [address] Care Team Providers Care Direct Support Staff Member Name Role Phone Amelie Valentino MD Primary Care Provider [phone] Surgical History Surgery Date Site/Laterality Comments OTHER SURGICAL HISTORY 01/21/2023 PROCEDURE: VT DILATION & CURETTAGE DX&/THER NONOBSTETRIC; COMMENT: Pathology [...] 12/20/2023 1:02 PM EDT Plan of Treatment Upcoming Encounters Date Type Department Care Team ([facility] st Contact Info) Description 11/19/2024 2:30 PM EDT Office Visit Obstetrics and Gynecology - [address] [phone] Abdoul George, CNM [address] [place] [address] Health Maintenance Due Date Last Done Comments Hepatitis B Vaccines (1 of 3 - 19+ 3-dose series) 10/27/2014 Depression Screening 04/04/2022 HIV Screening 04/04/2022 Hepatitis C Screening 04/04/2022 Social Influencers of Health Screening 04/04/2022 COVID-19 Vaccine (1 - 2023-2 5 season) 2024 Cervical Cancer Screening: P ap Smear 12/03/2024 12/03/2021 Influenza Vaccine (Season Ended) 2024 03/03/20 DTaP,Tdap,and Td Vaccines (2 - Td or [...] age to complete this topic Meningococcal B Vaccine Aged Out No l onger eligible based on patient's age to complete [...] RESULTING AGENCY - 12/09/2021 9:46 AM EDT [id number] THINPREP PAP, IMAGED: NEGATIVE FOR SQUAMOUS INTRAEPITHELIAL [...] or Most Recently Relevant to Health Maintenance Insurance [place] [address] HEALTH PLAN Care Teams Direct Support Staff Member Relationship Specialty Start Date End Date Amelie Valentino MD [address] [place] [address] , [address] [facility] [place], [place] PCP - General 05/06/22
--- OUTSIDE RECORDS SUMMARY | 2024-08-09 17:28 | XMS_ITS | Encounter Summary ---
Author Organization [facility] Address [address] [place] [address] Phone Care Team Providers Care Driver Trainer Name Role Phone Shannan Jordan DO Primary Care Provider [phone] Encounter Details Date Type Department Care Team (Late st Contact Info) Description 08/03/2010 Documentation EM Family Medicine [address] [place] [address] Family Medicine, Physician [address] [place] [phone] Social History Tobacco Use Types Packs/Day Years [...] on filedocumented in this encounter Care Teams Driver Trainer Relationship Specialty Start Date End Date Shanann Jordan DO [address] [place] [address] PCP - General 12/10/16 10/31/22 documented as of this encounter
--- OUTSIDE RECORDS SUMMARY | 2024-08-09 17:28 | XMS_ITS | Encounter Summary ---
Author Organization [facility] Address [address] [place] [address] Phone Care Team Providers Care Property Management Coordinator Name Role Phone Shannan Jordan DO Primary Care Provider [phone] Encounter Details Date Type Department Care Team (Late st Contact Info) Description 09/30/2009 Documentation EM Family Medicine [address] [place] [address] Family Medicine, Physician [address], [place] [phone] Social History Tobacco Use Types Packs/Day Years [...] on filedocumented in this encounter Care Teams Property Management Coordinator Relationship Specialty Start Date End Date Shannan Jordan DO [address] [place] [address] PCP - General 12/10/16 10/31/22 documented as of this encounter
--- OUTSIDE RECORDS SUMMARY | 2024-08-09 17:28 | XMS_ITS | Clinical Summary ---
Author Organization [facility] Address [address] [place] [address] Phone Care Team Providers Care Cattery Operator Name Role Phone Unavailable Primary Care Provider [...] Health Maintenance Due Date Last Done Comments Influenza Vaccines (#1) 2023 03/13/2015, 06/11 COVID-19 [...] complete this topic Procedures * Due to [place] state law, this organization might not be sharing sensitive test results. Procedure Name Priority Date/Time Associated Diagnosis Comments CHLAMYDIA AND GONORRHEA, AMPLIFIED Routine 11/19/2014 2:18 PM EDT from Last 3 Months or Most Recently Relevant to Health Maintenance Results * Due to [place] state law, this organization might not be sharing sensitive test results. * Chlamydia and Gonorrhoea, Amplified (11/19/2014 2:18 PM EDT) URINE GC AMP PROBE NEGATIVE [facility] Comment: No Neisseria Gonorrhoeae RNA detected in this patient's sample (REFERENCE RANGE/NORMAL VALUE: NOT DETECTED) NOTE: This test uses weather clerk-mediated amplification method to detect rRNA from C.Trachomatis [...] without risk of sexual abuse. Consult the [facility] if needed. Contact phone number . Therapeutic failure or success cannot be determined with the Aptima Combo2 assay since nucleic acid may persist following appropriate antimicrobial therapy. The Centers for Disease Control and Prevention (CDC) recommends confirmatory retesting using culture or a different nucleic acid amplification test when positive results occur, if indicated. Testing performed or reported by [facility], a Service of [facility], [address] [place] [id number] Bernard Duke MD, PhD, Pasta Maker URINE CHLAMYDIA AMP PROBE NEGATIVE [facility], [...] Result [facility] [address] [place] [address], from Last 3 Months or Most Recently Relevant to Health Maintenance
--- OUTSIDE RECORDS SUMMARY | 2024-08-09 17:28 | XMS_ITS | Encounter Summary ---
Author Organization [facility] Address [address] [place] [address] Phone Care Team Providers Care Hide Tanner Name Role Phone Shannan Jordan DO Primary Care Provider [phone] Encounter Details Date Type Department Care Team (Late st Contact Info) Description 05/31/2012 Documentation EM Family Medicine [address] [place] [address] Family Medicine, Physician [address] [phone] Social History Tobacco Use Types Packs/Day Years [...] on filedocumented in this encounter Care Teams Hide Tanner Relationship Specialty Start Date End Date Shannan Jordan DO [address] [place] [address] PCP - General 12/10/16 10/31/22 documented as of this encounter
--- OUTSIDE RECORDS SUMMARY | 2024-08-09 17:28 | XMS_ITS | Encounter Summary ---
Author Organization [facility] Address [address] [place] [address] Phone Care Team Providers Care Frame Trimmer Name Role Phone Shannan Jordan DO Primary Care Provider [phone] Encounter Details Date Type Department Care Team (Late st Contact Info) Description 07/23/2011 Documentation EM Family Medicine [address] [place] [address] Family Medicine, Physician [address], [place] [phone] Social History Tobacco Use Types Packs/Day Years [...] filedocumented in this encounter Care Teams Frame Trimmer Relationship Specialty Start Date End Date Shannan Jordan DO [address] [place] [address] PCP - General 12/10/16 10/31/22 documented as of this encounter
--- OUTSIDE RECORDS SUMMARY | 2024-08-09 17:28 | XMS_ITS | Encounter Summary ---
Author Organization [facility] Address [address] [place] [address] Phone Care Team Providers Care School Business Manager Name Role Phone Shannan Jordan DO Primary Care Provider [phone] Encounter Details Date Type Department Care Team (Late st Contact Info) Description 07/08/2009 Documentation EM Family Medicine [address] [place] [address] Family Medicine, Physician [address], [place] [phone] Social History Tobacco Use Types Packs/Day Years [...] on filedocumented in this encounter Care Teams School Business Manager Relationship Specialty Start Date End Date Shannan Jordan DO [address] [place] [address] PCP - General 12/10/16 10/31/22 documented as of this encounter
--- OUTSIDE RECORDS SUMMARY | 2024-08-09 17:28 | XMS_ITS | Encounter Summary ---
Author Organization [facility] Address [address] [place] [address] Phone Care Team Providers Care Print Shop Helper Name Role Phone Shannan Jordan DO Primary Care Provider [phone] Encounter Details Date Type Department Care Team (Late st Contact Info) Description 05/16/2013 Documentation EM Family Medicine [address] [place] [address] Family Medicine, Physician [address] [place], [place] [phone] Social History Tobacco Use Types Packs/Day Years [...] on filedocumented in this encounter Care Teams Print Shop Helper Relationship Specialty Start Date End Date Shannan Jordan DO [address] [place] [address] PCP - General 12/10/16 10/31/22 documented as of this encounter
--- OUTSIDE RECORDS SUMMARY | 2024-08-09 17:28 | XMS_ITS | Encounter Summary ---
Author Organization [facility] Address [address] [place] [address] Phone Care Team Providers Care Building Stonecutter Name Role Phone Shannan Jordan DO Primary Care Provider [phone] Encounter Details Date Type Department Care Team (Late st Contact Info) Description 07/23/2011 Documentation EM Family Medicine [address] [place] [address] Family Medicine, Physician [address], [place] [phone] Social History Tobacco Use Types Packs/Day Years [...] on filedocumented in this encounter Care Teams Building Stonecutter Relationship Specialty Start Date End Date Shannan Jordan DO [address] [place] [address] PCP - General 12/10/16 10/31/22 documented as of this encounter
--- OUTSIDE RECORDS SUMMARY | 2024-08-09 17:28 | XMS_ITS | Encounter Summary ---
Author Organization [facility] Address [address] [place] [address] Phone Care Team Providers Care Junior Linux Systems Administrator Name Role Phone Shannan Jordan DO Primary Care Provider [phone] Encounter Details Date Type Department Care Team (Late st Contact Info) Description 12/16/2016 Conversion Encounter [facility] [address] [place] [address] Social History Tobacco Use Types Packs/Day Years [...] on filedocumented in this encounter Care Teams Junior Linux Systems Administrator Relationship Specialty Start Date End Date Shannan Jordan DO [address] [place] [address] PCP - General 12/10/16 10/31/22 documented as of this encounter
--- OUTSIDE RECORDS SUMMARY | 2024-08-09 17:28 | XMS_ITS | Encounter Summary ---
Author Organization [facility] Address [address] [place] [address] Phone Care Team Providers Care Manager Msw Name Role Phone Shannan Jordan DO Primary Care Provider [phone] Encounter Details Date Type Department Care Team (Late st Contact Info) Description 07/09/2009 Documentation EM Family Medicine [address] [place] [address] Family Medicine, Physician [address] [phone] Social History Tobacco Use Types Packs/Day Years [...] on filedocumented in this encounter Care Teams Manager Msw Relationship Specialty Start Date End Date Shannan Jordan DO [address] [place] [address] PCP - General 12/10/16 10/31/22 documented as of this encounter
== END 2024-08-09 14:49 | disposition home or self-care (01) ==
LOC: HO.XRAY 14:48
PROVIDERS: PCP Internal Medicine; Visit Provider Nurse Practitioner Family
DX: M47.816 Spondylosis without myelopathy or radiculopathy, lumbar region (principal); M62.830 Muscle spasm of back; M54.50 Low back pain, unspecified
CPT/HCPCS: 72110

== ENCOUNTER → 2024-08-09 14:51 | Outpatient (BNV) | payer OTHER, SELFPAY | PROVIDERS: PCP Internal Medicine; Visit Provider Radiology Diagnostic Radiology | DX: M54.50 Low back pain, unspecified (principal) | CPT/HCPCS: 72110 ==

== ENCOUNTER 2024-08-18 14:40 | Outpatient (REF) | payer OTHER, SELFPAY ==
--- NOTE | ~2024-08-18 | MR_ITS ---
EXAMINATION: MR LUMBAR SPINE WITHOUT CONTRAST CLINICAL INFORMATION: Spondylosis without myelopathy or radiculopathy, L5-S1. COMPARISON: None available. TECHNIQUE: MRI of the lumbar spine was obtained using routine sequences without contrast. FINDINGS: The last rib-bearing vertebra labeled T12. No bone marrow STIR signal abnormality. There is normal alignment. The conus medullaris ends at superior endplate of L1 with normal signal. T12-L1: No disc herniation. No neuroforamina stenosis. L1-2: No disc herniation. No neuroforamina stenosis. L2-3: No disc herniation. No neuroforamina stenosis. L3-4: Broad-based disc bulging. Facet joint and ligamentum flavum hypertrophy. No compression upon neural elements. L4-5: Broad-based disc bulging. Facet joint and ligamentum flavum hypertrophy. No compression upon neural elements. L5-S1: Prominent epidural fat in a circumferential fashion. Broad-based disc bulging. Facet joint hypertrophy. No compression upon neural elements. No prevertebral compartment hematoma, mass or fluid collection. Free fluid in the cul-de-sac, small to moderate amount. MR/MR lumbar spine wo con IMPRESSION: Mild multilevel spondylosis, L3-4 to L5-S1 without compression upon neural elements. Mild epidural lipomatosis, L5-S1. Free fluid in the cul-de-sac/ascites, small to moderate volume. Electronically signed by: Wong Benjamin MD 08/21/2024 07:36 AM EDT
== END 2024-08-18 14:41 | disposition home or self-care (01) ==
LOC: HO.MRI 14:40
PROVIDERS: PCP Internal Medicine; Visit Provider Nurse Practitioner Family
DX: M47.816 Spondylosis without myelopathy or radiculopathy, lumbar region (principal); M43.07 Spondylolysis, lumbosacral region
CPT/HCPCS: 72148

== ENCOUNTER → 2024-08-18 14:51 | Outpatient (BNV) | payer OTHER, SELFPAY | PROVIDERS: PCP Internal Medicine; Visit Provider Radiology Diagnostic Radiology | DX: M47.816 Spondylosis without myelopathy or radiculopathy, lumbar region (principal) | CPT/HCPCS: 72148 ==

== ENCOUNTER 2024-08-24 13:42 | Outpatient (AMB) | payer OTHER, SELFPAY ==
--- NOTE | 2024-08-24 13:44 | A.OFFVIS_ITS ---
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 Patient continues to endorse mid and lower back pain, currently rated at 3/10. Imaging showed mild lumbar spondylosis L3-S1 accompanied by mild epidural lipomatosis at L5-S1. Her lumbar pain is primarily nocturnal and responds well to heating pad application. She notes that her pain level spiked to 2-3 during a recent episode. Current imaging shows no significant compression that would prevent her from returning to exercising at the gym. Fluid observed in the peritoneal cavity during her MRI is possibly related to ovulation, as she suspects she was ovulating at the time. She is encouraged to follow up with her PCP or ObGyn providers for this. Denies any recent cough, cold, infection, fever or other significant changes in medical history since last office visit. PRIOR: The patient is a 28-year-old female presenting for follow up for lower back and thoracic spine pain, which she attributes to a long-standing diagnosis of scoliosis and potentially arthritis. Chronic low back pain has been a persistent issue, diagnosed during her youth, with fluctuating severity. It remains localized around the waistline without radiating down the legs, possibly exacerbated by her scoliosis which contributes to consistent muscle spasms. She is awaiting a scheduled thoracic MRI to better assess the situation and review potential interventions, having scoliosis-oriented issues leading to thoracic discomfort. 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 For symptomatic control, non-pharmacological methods such as stretching exercises, warm showers, and topical therapies have been utilized, contrasting with ibuprofen avoided due to GERD considerations. Additionally, the patient experiences anxiety which compounds her pain levels, manifesting as muscle tightening during stress periods. Current management includes counseling but no psychiatric medications. Awareness of familial fibromyalgia has heightened her concerns, with chronic pain episodes leading her to suspect a similar condition despite lacking a concrete diagnosis. - Onset: Chronic variability, exacerbations with scoliosis, scoliosis-related pain in thoracic spine. - Quality: Localized to lower back near waistline; persistent muscle spasms. - Location: Lower back, Thoracic spine. - Exacerbating factors: Anxiety, stress, maintaining upright posture. - Relieving factors: Stretching, warm showers, lidocaine patches, heating pads. - Interference: Care for 2-year-old child, work, ADLs, energy for daily activities limited by drowsiness from prior gabapentin use. - Affect: Anxiety exacerbates pain; counselor-support ongoing. - Analgesia: Lidocaine patches, methocarbamol as needed, previously ineffective gabapentin. - Adverse Effects: Sedation from gabapentin; GERD mitigates use of ibuprofen. - Activities of Daily Living: Pain limits ability to energetically care for a child or work as OA. - Aberrant Drug Related Behaviors: None reported, adherence to prescribed regimens. PRIOR: Patient is a pleasant 28 years old female with history of mid lower thoracic le voscoliosis, presents today for initial evaluation of chronic mid back pain. Denies any recent trauma, injury, or falls. Patient presents with localized tenderness of lower thoracic midline back pain with radiation to the right side and at times to the left, associated with burning, tingling, numbness, and stabbing pain sensation. Denies any previous spine injections or surgery. 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 She takes care of her 1-1/2-year son at home. Reports increased mid back pain when she gets up at night to tender care to her child as well as history of significant mid back pain with and holding her son. Pain affects her daily activities and functioning, sleep, mood, work, and social interactions. Pain is constant and worse during the day and middle of the night which she rates at 8-10/10 and least severe at 5/10 at rest and mornings. Patient has attended physical therapy and more recently chiropractor adjustments with minimal improvements. She continues to live a physically active lifestyle and regularly performs home exercise program. Denies any fever or chills, weight loss, shortness of breath, chest pain, shoulder, neck or low back pain, dizziness, balance issues, weakness, upper or lower extremity paresthesia, distal extremity swelling or pain, bladder or bowel dysfunction, or saddle anesthesia. Oswestry Low Back Disability Score=11 (mild disability) Location: Mid thoracic pain with radiation to both sides, right>left Duration: Chronic pain, worsening for past 2 years Characteristics of symptom or complaint: Aching, burning, stabbing, tingling, tiring, numbness Aggravating or associated factors: Bending down or forward, lifting, pulling, prolonged sitting, ADLs, sleep Relieving factors: Tylenol, NSAIDs, methocarbamol, lidocaine patch Treatment: PT and Chiropractic therapy, home exercise program [facility] Medical History Physical exam Tiredness VENANCIO (generalized anxiety disorder) History of multiple miscarriages Complete Threatened Early stage of History of demise, not currently Well woman exam Mild recurrent major depression Insomnia demise Surgical History H/O dilation and curettage Family History Mother Fibromyalgia Breast cancer, Onset Age: 44 Father No problems noted. 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 Alert and oriented. Mood and affect appropriate. Follows and participates in conversation appropriately. Respiratory effort is unlabored. No cough. Able to transition from sit to stand unassisted. Ambulates with bilaterally normal heel strike and toe off. General: Yes no CVA tenderness Back/Spine/Pelvis Other: Lumbar extension reproduces mild-moderate pain. Positive facet loading bilaterally. Flexion is intact and reproduces mild pain. Mild midline tenderness to palpation in the thoracic or lumbar spine. Back: no CVA tenderness Cervical Spine: cervical ROM normal, cervical muscular tenderness, pain with cervical ROM and No Cervical spine tenderness Thoracic/Lumbar Spine: thoracic and lumbar spine normal to inspection, No Thoracic/lumbar spine scar(s), Lasegue's sign negative, straight leg raise negative bilaterally, paraspinal muscle tenderness, thoraco-lumbar ROM limited, Thoracic/lumbar scoliosis (mild thoracic), thoracic spinal tenderness (mid to lower spine) and lumbar spinal tenderness (L4-S1) Sacroiliac joints: bilaterally nontender Extrem General: Yes capillary refill normal, Yes no clubbing, cyanosis or edema and Yes no calf tenderness Results Reviewed Results Reviewed: MR LUMBAR SPINE WITHOUT CONTRAST 08/18/24 CLINICAL INFORMATION: Spondylosis without myelopathy or radiculopathy, L5-S1. COMPARISON: None available. TECHNIQUE: MRI of the lumbar spine was obtained using routine sequences without contrast. FINDINGS: The last rib-bearing vertebra labeled T12. No bone marrow STIR signal abnormality. There is normal alignment. The conus medullaris ends at superior endplate of L1 with normal signal. T12-L1: No disc herniation. No neuroforamina stenosis. L1-2: No disc herniation. No neuroforamina stenosis. L2-3: No disc herniation. No neuroforamina stenosis. L3-4: Broad-based disc bulging. Facet joint and ligamentum flavum hypertrophy. No compression upon neural elements. L4-5: Broad-based disc bulging. Facet joint and ligamentum flavum hypertrophy. No compression upon neural elements. L5-S1: Prominent epidural fat in a circumferential fashion. Broad-based disc bulging. Facet joint hypertrophy. No compression upon neural elements. No prevertebral compartment hematoma, mass or fluid collection. Free fluid in the cul-de-sac, small to moderate amount. IMPRESSION: Mild multilevel spondylosis, L3-4 to L5-S1 without compression upon neural elements. Mild epidural lipomatosis, L5-S1. Free fluid in the cul-de-sac/ascites, small to moderate volume. XR lumbar spine 4V min 08/10/24 5 views lumbar spine Comparison: None Findings: Normal vertebral body alignment. There is suspected left spondylolysis at L5-S1. There is no evidence of spondylolisthesis. No significant degenerative change. IMPRESSION: No acute findings. Possible spondylolysis on the left at L5-S1. Assessment & Plan Assessment & Plan (1) Thoracic spine pain: Code(s): M54.6 - Pain in thoracic spine Category: Medical (2) Levoscoliosis of thoracic spine: Code(s): M41.84 - Other forms of scoliosis, thoracic region Category: Medical (3) Muscle spasm of back: Code(s): M62.830 - Muscle spasm of back Category: Medical (4) Low back pain: Code(s): M54.50 - Low back pain, unspecified Category: Medical (5) Lumbar spondylosis: Code(s): M47.816 - Spondylosis without myelopathy or radiculopathy, lumbar region Category: Medical Plan The patient was counseled on managing mild lumbar spondylosis with potential interventional treatments, including diagnostic lumbar medial branch blocks for potential Sprint PNS trial vs RFA procedures. Lifestyle changes focusing on maintaining an active lifestyle and avoiding inflammatory foods were emphasized. I recommended using heat therapy at night for symptomatic relief. The patient was advised to consult with BED MANAGER for follow-up on possible peritoneal fluid concerns. All questions and concerns have been answered and patient agreed with the treatment plan. Follow-up as needed. Patient was informed and verbally consented to the use of an ambient scribe for clinic note documentation during this visit. Patient Instructions: I reviewed the MRI findings with the patient, reassuring her about the mild nature of the spondylosis and mild epidural lipomatosis at L5-S1. The absence of significant spinal issues allows her to resume normal activities, including work and gym exercises. We planned ongoing management strategies to mitigate progression through lifestyle changes. I discussed dietary factors influencing arthritis and considered natural anti-inflammatory supplements. The patient expressed interest in managing her pain naturally, and I supported this approach with the conditions discussed. Future options such as intervention techniques for persistent painful episodes were considered but determined as unnecessary at this stage. Follow-up arrangements and the importance of monitoring her symptom progression or escalation were also discussed. - Use heat therapy at night to alleviate lumbar spine pain. - Maintain an active lifestyle and avoid inflammatory foods. - Consult with BED MANAGER regarding any concerns about fluid in the peritoneal cavity. - Monitor pain levels and functional status; contact the clinic if symptoms worsen. - Report any new or alarming symptoms promptly. Coding Level of Care Code Est Pt Level 4 (30627) Complex EM visit Add On G2211 Diagnoses Thoracic spine pain M54.6 Levoscoliosis of thoracic spine M41.84 Muscle spasm of back M62.830 Low back pain M54.50 Lumbar spondylosis M47.816
[2024-08-24 13:48] VITALS: BP 115/63; PULSE 104; O2SAT 100; BMI 25.6
--- OUTSIDE RECORDS SUMMARY | 2024-08-24 14:25 | XMS_ITS | Encounter Summary ---
Author Organization [facility] Address [address] [place] [address] Phone Care Team Providers Care Senior Interactive Developer Name Role Phone Shannan Jordan DO Primary Care Provider [phone] Encounter Details Date Type Department Care Team (Late st Contact Info) Description 09/30/2009 Documentation EM Family Medicine [address] [place] [address] Family Medicine, Physician [address] [place] [phone] Social History Tobacco Use Types Packs/Day Years [...] on filedocumented in this encounter Care Teams Senior Interactive Developer Relationship Specialty Start Date End Date Shannan Jordan DO [address] [place] [address] PCP - General 12/10/16 10/31/22 documented as of this encounter
--- OUTSIDE RECORDS SUMMARY | 2024-08-24 14:25 | XMS_ITS | Encounter Summary ---
Author Organization [facility] Address [address] [place] [address] Phone Care Team Providers Care Automotive Metalsmith Name Role Phone Shannan Jordan DO Primary Care Provider Encounter Details Date Type Department Care Team (Late st Contact Info) Description 05/16/2013 Documentation EM Family Medicine [address] [place] [address] Family Medicine, Physician [address] [place] [phone] Social History Tobacco Use Types Packs/Day Years [...] on filedocumented in this encounter Care Teams Automotive Metalsmith Relationship Specialty Start Date End Date Shannan Jordan DO [address] [place] [address] PCP - General 12/10/16 10/31/22 documented as of this encounter
--- OUTSIDE RECORDS SUMMARY | 2024-08-24 14:25 | XMS_ITS | Clinical Summary ---
Author Organization [facility] Address [address] [place] [address] Care Team Providers Care Glass Beveller Name Role Phone Amelie Valentino MD Primary Care Provider [phone] Surgical History Surgery Date Site/Laterality Comments OTHER SURGICAL HISTORY 01/21/2023 PROCEDURE: [place] DILATION & CURETTAGE DX&/THER NONOBSTETRIC; COMMENT: Pathology [...] Upcoming Encounters Date Type Department Care Team ([facility] st Contact Info) Description 11/19/2024 2:30 PM EDT Office Visit Obstetrics and Gynecology - [address] [phone] Abdoul George, CNM [address] [place] [address] Health Maintenance Due Date Last [...] RESULTING AGENCY - 12/09/2021 9:46 AM EDT [id number] THINPREP PAP, IMAGED: NEGATIVE FOR SQUAMOUS INTRAEPITHELIAL [...] Most Recently Relevant to Health Maintenance [place] [address] [place] [address] HEALTH PLAN Care Teams Glass Beveller Relationship Specialty Start Date End Date Amelie Valentino MD [address] [place] [address] , [address] [facility] [place], [place] PCP - General 05/06/22
--- OUTSIDE RECORDS SUMMARY | 2024-08-24 14:25 | XMS_ITS | Clinical Summary ---
Author Organization [facility] Address [address] [place] [address] Phone Care Team Providers Care Motor Equipment Sergeant Name Role Phone Unavailable Primary Care Provider [...] complete this topic Procedures * Due to [place] state law, this organization might not be sharing sensitive test results. Procedure Name Priority Date/Time Associated Diagnosis Comments CHLAMYDIA AND GONORRHEA, AMPLIFIED Routine 11/19/2014 2:18 PM EDT from Last 3 Months or Most Recently Relevant to Health Maintenance Results * Due to [place] state law, this organization might not be sharing sensitive test results. * Chlamydia and Gonorrhoea, Amplified (11/19/2014 2:18 PM EDT) URINE GC AMP PROBE NEGATIVE [facility] Comment: No Neisseria Gonorrhoeae RNA detected in this patient's sample (REFERENCE RANGE/NORMAL VALUE: NOT DETECTED) NOTE: This test uses contact lens cutter-mediated amplification method to detect rRNA from C.Trachomatis [...] risk of sexual abuse. Consult the [facility] if needed. Contact phone number . Therapeutic failure or success cannot be determined with the Aptima Combo2 assay since nucleic acid may persist following appropriate antimicrobial therapy. The Centers for Disease Control and Prevention (CDC) recommends confirmatory retesting using culture or a different nucleic acid amplification test when positive results occur, if indicated. Testing performed or reported by [facility], a Service of [facility], [address] [place] [id number] Bernard Duke MD, PhD, Tool Design Engineer URINE CHLAMYDIA AMP PROBE NEGATIVE [facility] Comment: No Chlamydia Trachomatis RNA detected in this patient's sample (REFERENCE RANGE/NORMAL VALUE: NOT DETECTED) 11/19/2014 2:18 PM EDT Narrative [facility] - 11/19/2014 2:18 PM EDT URINE CHLAMYDIA GC AMP PROBE us Adrianna Alicia NP LAB MICROBIOLOGY - GENERAL OR DERABLES Final Result [facility] [address] [place] [address], from Last 3 Months or Most Recently Relevant to Health Maintenance
--- OUTSIDE RECORDS SUMMARY | 2024-08-24 14:25 | XMS_ITS | Encounter Summary ---
Author Organization [facility] Address [address] [place] [address] Phone Care Team Providers Care Oil And Gas Specialist Name Role Phone Shannan Jordan DO Primary Care Provider [phone] Encounter Details Date Type Department Care Team (Late st Contact Info) Description 07/08/2009 Documentation EM Family Medicine [address] [place] [address] Family Medicine, Physician [address], [place] [phone] Social History Tobacco Use Types Packs/Day Years [...] on filedocumented in this encounter Care Teams Oil And Gas Specialist Relationship Specialty Start Date End Date Shannan Jordan DO [address] [place] [address] PCP - General 12/10/16 10/31/22 documented as of this encounter
--- OUTSIDE RECORDS SUMMARY | 2024-08-24 14:25 | XMS_ITS | Encounter Summary ---
Author Organization [facility] Address [address] [place] [address] Phone Care Team Providers Care Extruding Department Supervisor Name Role Phone Shannan Jordan DO Primary Care Provider [phone] Encounter Details Date Type Department Care Team (Late st Contact Info) Description 07/23/2011 Documentation EM Family Medicine [address] [place] [address] Family Medicine, Physician [address] [phone] Social History Tobacco Use Types Packs/Day Years [...] on filedocumented in this encounter Care Teams Extruding Department Supervisor Relationship Specialty Start Date End Date Shannan Jordan DO [address] [place] [address] PCP - General 12/10/16 10/31/22 documented as of this encounter
--- OUTSIDE RECORDS SUMMARY | 2024-08-24 14:25 | XMS_ITS | Encounter Summary ---
Author Organization [facility] Address [address] [place] [address] Phone Care Team Providers Care Assault Boat Coxswain Name Role Phone Shannan Jordan DO Primary Care Provider [phone] Encounter Details Date Type Department Care Team (Late st Contact Info) Description 05/31/2012 Documentation EM Family Medicine [address] [place] [address] Family Medicine, Physician [address] [phone] Social History Tobacco Use Types Packs/Day Years [...] on filedocumented in this encounter Care Teams Assault Boat Coxswain Relationship Specialty Start Date End Date Shannan Jordan DO [address] [place] [address] PCP - General 12/10/16 10/31/22 documented as of this encounter
--- OUTSIDE RECORDS SUMMARY | 2024-08-24 14:25 | XMS_ITS | Encounter Summary ---
Author Organization [facility] Address [address] [place] [address] Phone Care Team Providers Care Greenhouse Technician Name Role Phone Shannan Jordan DO Primary Care Provider [phone] Encounter Details Date Type Department Care Team (Late st Contact Info) Description 07/23/2011 Documentation EM Family Medicine [address] [place] [address] Family Medicine, Physician [address] [phone] Social History Tobacco Use Types Packs/Day Years [...] on filedocumented in this encounter Care Teams Greenhouse Technician Relationship Specialty Start Date End Date Shannan Jordan DO [address] [place] [address] PCP - General 12/10/16 10/31/22 documented as of this encounter
--- OUTSIDE RECORDS SUMMARY | 2024-08-24 14:25 | XMS_ITS | Encounter Summary ---
Author Organization [facility] Address [address] [place] [address] Phone Care Team Providers Care Human Resources Coordinator Name Role Phone Shannan Jordan DO Primary Care Provider Encounter Details Date Type Department Care Team (Late st Contact Info) Description 12/16/2016 Conversion Encounter [facility] [address] [place] [address] Social History Tobacco Use Types Packs/Day Years [...] on filedocumented in this encounter Care Teams Human Resources Coordinator Relationship Specialty Start Date End Date Shannan Jordan DO [address] [place] [address] PCP - General 12/10/16 10/31/22 documented as of this encounter
--- OUTSIDE RECORDS SUMMARY | 2024-08-24 14:25 | XMS_ITS | Encounter Summary ---
Author Organization [facility] Address [address] [place] [address] Phone Care Team Providers Care Pantograph Engraver Name Role Phone Shannan Jordan DO Primary Care Provider [phone] Encounter Details Date Type Department Care Team (Late st Contact Info) Description 07/08/2009 Documentation EM Family Medicine [address] [place] [address] Family Medicine, Physician [address] [place] [phone] Social History Tobacco Use Types Packs/Day Years [...] on filedocumented in this encounter Care Teams Pantograph Engraver Relationship Specialty Start Date End Date Shannan Jordan DO [address] [place] [address] PCP - General 12/10/16 10/31/22 documented as of this encounter
--- OUTSIDE RECORDS SUMMARY | 2024-08-24 14:25 | XMS_ITS | Encounter Summary ---
Author Organization [facility] Address [address] [place] [address] Phone Care Team Providers Care Hydroponics Worker Name Role Phone Shannan Jordan DO Primary Care Provider [phone] Encounter Details Date Type Department Care Team (Late st Contact Info) Description 08/03/2010 Documentation EM Family Medicine [address] [place] [address] Family Medicine, Physician [address], [place] [phone] Social History Tobacco Use Types Packs/Day Years [...] on filedocumented in this encounter Care Teams Hydroponics Worker Relationship Specialty Start Date End Date Shannan Jordan DO [address] [place] [address] PCP - General 12/10/16 10/31/22 documented as of this encounter
--- OUTSIDE RECORDS SUMMARY | 2024-08-24 14:25 | XMS_ITS | Encounter Summary ---
Author Organization [facility] Address [address] [place] [address] Phone Care Team Providers Care Senior Loss Control Specialist Name Role Phone Shannan Jordan DO Primary Care Provider [phone] Encounter Details Date Type Department Care Team (Late st Contact Info) Description 07/09/2009 Documentation EM Family Medicine [address] [place] [address] Family Medicine, Physician [address] [place], [place] [phone] Social History Tobacco Use Types Packs/Day Years [...] filedocumented in this encounter Care Teams Senior Loss Control Specialist Relationship Specialty Start Date End Date Shannan Jordan DO [address] [place] [address] PCP - General 12/10/16 10/31/22 documented as of this encounter
== END 2024-08-24 14:03 | disposition home or self-care (01) ==
LOC: HO.PMC 13:42
PROVIDERS: PCP Internal Medicine; Visit Provider Nurse Practitioner Family
DX: M54.6 Pain in thoracic spine (principal); M41.84 Other forms of scoliosis, thoracic region; M62.830 Muscle spasm of back; M54.50 Low back pain, unspecified; M47.816 Spondylosis without myelopathy or radiculopathy, lumbar region
CPT/HCPCS: 99214; G2211

== ENCOUNTER → 2024-08-24 13:42 | Outpatient (BNVA) | payer OTHER, SELFPAY | PROVIDERS: PCP Internal Medicine; Visit Provider Nurse Practitioner Family | DX: M54.6 Pain in thoracic spine (principal); M41.84 Other forms of scoliosis, thoracic region; M62.830 Muscle spasm of back; M54.50 Low back pain, unspecified; M47.816 Spondylosis without myelopathy or radiculopathy, lumbar region | CPT/HCPCS: 99212 ==

== ENCOUNTER 2024-09-20 08:27 | Outpatient (REF) | payer OTHER, SELFPAY ==
--- OUTSIDE RECORDS SUMMARY | 2024-09-20 08:39 | XMS_ITS | Encounter Summary ---
Author Organization [facility] Address [address] [place] [address] Phone Care Team Providers Care Lens Block Gauger Name Role Phone Shannan Jordan DO Primary Care Provider [phone] Encounter Details Date Type Department Care Team (Late st Contact Info) Description 08/03/2010 Documentation EM Family Medicine [address] [place] [address] Family Medicine, Physician [address] [place], [place] [phone] Social History Tobacco Use Types Packs/Day Years [...] on filedocumented in this encounter Care Teams Lens Block Gauger Relationship Specialty Start Date End Date Shannan Jordan DO [address] [place] [address] PCP - General 12/10/16 10/31/22 documented as of this encounter
--- OUTSIDE RECORDS SUMMARY | 2024-09-20 08:40 | XMS_ITS | Encounter Summary ---
Author Organization [facility] Address [address] [place] [address] Phone Care Team Providers Care Internet Cafe Manager Name Role Phone Shannan Jordan DO Primary Care Provider [phone] Encounter Details Date Type Department Care Team (Late st Contact Info) Description 05/16/2013 Documentation EM Family Medicine [address] [place] [address] Family Medicine, Physician [address], [place] [phone] Social History Tobacco Use Types Packs/Day Years [...] on filedocumented in this encounter Care Teams Internet Cafe Manager Relationship Specialty Start Date End Date Shannan Jordan DO [address] [place] [address] PCP - General 12/10/16 10/31/22 documented as of this encounter
--- OUTSIDE RECORDS SUMMARY | 2024-09-20 08:40 | XMS_ITS | Encounter Summary ---
Author Organization [facility] Address [address] [place] [address] Phone Care Team Providers Care Candy Cooker Helper Name Role Phone Shannan Jordan DO Primary Care Provider [phone] Encounter Details Date Type Department Care Team (Late st Contact Info) Description 07/09/2009 Documentation EM Family Medicine [address] [place] [address] Family Medicine, Physician [address], [place] [phone] Social History Tobacco Use Types Packs/Day Years [...] on filedocumented in this encounter Care Teams Candy Cooker Helper Relationship Specialty Start Date End Date Shannan Jordan DO [address] [place] [address] PCP - General 12/10/16 10/31/22 documented as of this encounter
--- OUTSIDE RECORDS SUMMARY | 2024-09-20 08:40 | XMS_ITS | Encounter Summary ---
Author Organization [facility] Address [address] [place] [address] Phone Care Team Providers Care Traffic Rate Clerk Name Role Phone Shannan Jordan DO Primary Care Provider [phone] Encounter Details Date Type Department Care Team (Late st Contact Info) Description 07/23/2011 Documentation EM Family Medicine [address] [place] [address] Family Medicine, Physician [address], [place] [phone] Social History Tobacco Use Types Packs/Day Years [...] on filedocumented in this encounter Care Teams Traffic Rate Clerk Relationship Specialty Start Date End Date Shannan Jordan DO [address] [place] [address] PCP - General 12/10/16 10/31/22 documented as of this encounter
--- OUTSIDE RECORDS SUMMARY | 2024-09-20 08:40 | XMS_ITS | Clinical Summary ---
Author Organization [facility] [address] [facility] [address] Address [address] [place] [address] Phone Care Team Providers Care Funeral Professional Name Role Phone Amelie Valentino MD Primary Care Provider [phone] Allergies Active Allergy Reactions Criticality Noted Date Comments Pollen Extracts Itching Low 11/10/2021 Medications cetirizine (ZyrTEC) 10 mg tablet TAKE 1 TABLET BY MOUTH EVERY DAY NEEDED FOR ALLERGY SYMPTOMS 03/09/2024 Active MULTIVITAMIN ORAL Take by mouth. Active Active Problems Problem Noted Date Diagnosed Date Other idiopathic scoliosis, lumbar region 2024 Overview (09/04/2024): 09/04/2024: She reported this from her PCP also found mild osteoarthritis through MRI, she was not interested in injections, planning to monitor through her PCP Resolved Problems Problem Noted Date Diagnosed Date Resolved Date depression 05/27/20222024 Overview (09/04/2024): Results of Delanson Depression Scale (EPDS) Question #10. In the past 7 days, the thought of harming myself has occurred to me: Never EDPS Score: 10 EDPS Interpretation (Maximum Score:30): 10 or greater: Possible Depression. Encounters Date Type Department Care Team Description 09/07/2024 Telephone Obstetrics and Gynecology - [place] [address] [place] [address] Amelie Graves MA 09/04/2024 2:30 PM EDT Office Visit Obstetrics and Gynecology - [place] [address] [place] [id number] Abdoul George CNM Encounter for annual routine gynecological examination (Primary Dx) from Last 3 Months Surgical History Surgery Date Site/Laterality Comments OTHER SURGICAL HISTORY 01/21/2023 PROCEDURE: VA DILATION & CURETTAGE DX&/THER NONOBSTETRIC; COMMENT: Pathology Benign Medical History Medical History Date Comments Mixed anxiety and depressive disorder DX:Mixed anxiety and depress tamiko disorder depression 05/27/2022 Results of Delanson Depression Scale (EPDS) Question #10. In the past 7 days, the thought of harming myself has occurred to me: Never EDPS Score: 10 EDPS Interpretation (Maximum Score:30): 10 or greater: Possible Depression. Family History Medical History Relation Name Comments [...] = 0.6 oz pur e alcohol) Comments No Sex and Gender Information Value Date Recorded Sex Assigned at Not on file Legal Sex Female 9:07 AM EST Gender Identity Not on file Sexual Orientation Not on file Obstetrics History Para Term AB IAB SAB Ectopic Multiple Livin g Live Births 3 1 1 2 1 1 1 1 Date Outcome GA Total Labor Labor/2nd/3rd Weight Sex Type Anes PTL Mirna A1 A5 Name Clin 2020 IAB 24w 0d M Surgic al Kareem Demis e [facility] Comments:D&E for IUFD baby was measuring 20w2d Male all genetic testing negative SAB SAB 2022 Term 37w 1d 2637 g (93 oz) M Vag-Sp ont Epidur al Livin g Javia n Feithad and, CNM Complications:Intrauterine g rowth restriction (IUGR) affecting care of mother Last Filed Vital Signs Vital Sign Reading Time Taken Comments Blood Pressure 122/68 09/04/2024 2:37 PM EDT Pulse 75 08/08/2023 1:34 PM EDT Temperature - - Respiratory Rate - - Oxygen Saturation - - Inhaled Oxygen Concentration - - Weight 61.8 kg (136 lb 3.2 oz) 09/04/2024 2:37 P M EDT Height 160 cm (5' 3 ) 12/20/2023 1:02 PM EDT Body Mass Index 24.13 12/20/2023 1:02 PM EDT Plan of Treatment Health Maintenance Due Date Last Done Comments Depression Screening 04/04/2022 HIV Screening 04/04/2022 Hepatitis C Screening 04/04/2022 Social Influencers of Health Screening 04/04/2022 COVID-19 Vaccine ( season) 2024 Influenza Vaccine (Season Ended) 2024 03/03/2022, 03/13/2015, 06/11/2011, Additional history exists Cervical Cancer Screening: Pap Smear 09/05/2027 09/04/2024, 12/03/2021 DTaP,Tdap,and Td Vaccines (9 - Td or Tdap) 03/03/2032 03/03/2022, 08/16/2016, 02/17/2007, Additional history exists Hepatitis B Vaccines Completed 06/01/1996, 01/30/1996, 1995 HIB Vaccines Completed 05/01/1997, 05/04, 03/31/1996, Additional history exists MMR Vaccines Completed 05/01/2000, 12/30/1996 IPV Vaccines Completed 09/22/2000, 05/04, 03/31/1996, Additional history exists Varicella Vaccines Completed 04/22/2008, 04/30/1999 HPV Vaccines Completed 06/24/2009, 04/02, 02/17/2007 Meningococcal ACWY Vaccine Completed 08/06/2013, Hepatitis A Vaccines Completed 11/18/2014, 08/07/19 14 Meningococcal B Vaccine Aged Out No l onger eligible based on patient's age to complete this topic Pneumococcal Vaccine: Pediatrics (0 to 5 Years) and At-Risk Patients (6 to 64 Years) Aged Out No longer eligible based on patient's age to complete this topic RSV Immunization Patients Under 20 months Aged Out No longer eligible based on patient's age to complete this topic Procedures Procedure Name Priority Date/Time Associated Diagnosis Comments PAP SMEAR Routine 09/04/2024 2:52 PM EDT Encounter for annual routine gynecological examination from Last 3 Months Results * Pap smear (09/04/2024 2:52 PM EDT) Interpretation Negative for intraepithelial lesion or malignancy 09/06/2024 4:20 PM EDT [facility] General Categorization Negative 09/06/2024 4:20 PM EDT [facility] LMP 08/30/2024 09/06/2024 4:20 PM EDT [facility] Specimen Adequacy Satisfactory for evaluation, endocervical/bob sformation zone component present 09/06/2024 4:20 PM EDT [facility] Pap Methodology Liquid Based Pap Test 09/06/2024 4:20 PM EDT [facility] Disclaimer The Pap test is a screening test which carries an inherent false negative rate. These test results should be correlated with the patient's clinical findings and history. This Pap test was processed using an automated screening system. Technical cytopathology services provided by [facility], at [address] [place] [address] (CLIA # [id number]/Alexsander Osorio MD, Senior Center Director.) 09/06/2024 4:20 PM EDT [facility] Console Pap Interpretation Reported 09/06/2024 4:20 PM EDT [facility] Brushing/Spatula Cervix uteri structure / Unknown 09/04/2024 2:52 PM EDT 09/04/2024 2:52 PM EDT us Abdoul George CNM LAB CYTOLOGY ORDERABLES Final Result [facility] [address] [place] [address], from Last 3 Months Insurance [facility] PL[facility] Care Teams Funeral Professional Relationship Specialty Start Date End Date Amelie Valentino MD [address] [facility] , [address] [facility] [place] PCP - General 05/06/22
--- OUTSIDE RECORDS SUMMARY | 2024-09-20 08:40 | XMS_ITS | Encounter Summary ---
Author Organization [facility] Address [address] [place] [address] Phone Care Team Providers Care Breastfeeding Educator Name Role Phone Shannan oJrdan DO Primary Care Provider [phone] Encounter Details Date Type Department Care Team (Late st Contact Info) Description 09/30/2009 Documentation EM Family Medicine [address] [place] [address] Family Medicine, Physician [address] [place], [place] [phone] Social History Tobacco Use Types Packs/Day Years [...] on filedocumented in this encounter Care Teams Breastfeeding Educator Relationship Specialty Start Date End Date Shannan Jordan DO [address] [place] [address] PCP - General 12/10/16 10/31/22 documented as of this encounter
--- OUTSIDE RECORDS SUMMARY | 2024-09-20 08:40 | XMS_ITS | Encounter Summary ---
Author Organization [facility] Address [address] [place] [address] Phone Care Team Providers Care Pure Pak Machine Operator Name Role Phone Shannan Jordan DO Primary Care Provider [phone] Encounter Details Date Type Department Care Team (Late st Contact Info) Description 07/23/2011 Documentation EM Family Medicine [address] [place] [address] Family Medicine, Physician [address], [place] [phone] Social History Tobacco Use Types Packs/Day Years [...] on filedocumented in this encounter Care Teams Pure Pak Machine Operator Relationship Specialty Start Date End Date Shannan Jordan DO [address] [place] [address] PCP - General 12/10/16 10/31/22 documented as of this encounter
--- OUTSIDE RECORDS SUMMARY | 2024-09-20 08:40 | XMS_ITS | Encounter Summary ---
Author Organization [facility] Address [address] [place] [address] Phone Care Team Providers Care Regional Account Manager Name Role Phone Shannan Jordan DO Primary Care Provider [phone] Encounter Details Date Type Department Care Team (Late st Contact Info) Description 07/08/2009 Documentation EM Family Medicine [address] [place] [address] Family Medicine, Physician [address], [place] [phone] Social History Tobacco Use Types Packs/Day Years [...] filedocumented in this encounter Care Teams Regional Account Manager Relationship Specialty Start Date End Date Shannan Jordan DO [address] [place] [address] PCP - General 12/10/16 10/31/22 documented as of this encounter
--- OUTSIDE RECORDS SUMMARY | 2024-09-20 08:40 | XMS_ITS | Clinical Summary ---
Author Organization [facility] Address [address] [place] [address] Phone Care Team Providers Care Accounting Machine Servicer Name Role Phone Unavailable Primary Care Provider [...] complete this topic Procedures * Due to [place] state law, this organization might not be sharing sensitive test results. Procedure Name Priority Date/Time Associated Diagnosis Comments CHLAMYDIA AND GONORRHEA, AMPLIFIED Routine 11/19/2014 2:18 PM EDT from Last 3 Months or Most Recently Relevant to Health Maintenance Results * Due to [place] state law, this organization might not be sharing sensitive test results. * Chlamydia and Gonorrhoea, Amplified (11/19/2014 2:18 PM EDT) URINE GC AMP PROBE NEGATIVE [facility] Comment: No Neisseria Gonorrhoeae RNA detected in this patient's sample (REFERENCE RANGE/NORMAL VALUE: NOT DETECTED) NOTE: This test uses block making machine operator-mediated amplification method to detect rRNA from C.Trachomatis [...] without risk of sexual abuse. Consult the [facility] if needed. Contact phone number . Therapeutic failure or success cannot be determined with the Aptima Combo2 assay since nucleic acid may persist following appropriate antimicrobial therapy. The Centers for Disease Control and Prevention (CDC) recommends confirmatory retesting using culture or a different nucleic acid amplification test when positive results occur, if indicated. Testing performed or reported by [facility], a Service of [facility], [address] [place] [id number] Bernard Duke MD, PhD, Applied Psychology Professor URINE CHLAMYDIA AMP PROBE NEGATIVE [facility] Comment: No Chlamydia Trachomatis RNA detected in this patient's sample (REFERENCE RANGE/NORMAL VALUE: NOT DETECTED) 11/19/2014 2:18 PM EDT Narrative [facility] - 11/19/2014 2:18 PM EDT URINE CHLAMYDIA GC AMP PROBE us Adrianna Alicia NP LAB MICROBIOLOGY - GENERAL OR DERABLES Final Result [facility] [address] [place] [address], from Last 3 Months or Most Recently Relevant to Health Maintenance
--- OUTSIDE RECORDS SUMMARY | 2024-09-20 08:40 | XMS_ITS | Encounter Summary ---
Author Organization [facility] Address [address] [place] [address] Phone Care Team Providers Care Hot Sealing Machine Operator Name Role Phone Shannan Jordan DO Primary Care Provider [phone] Encounter Details Date Type Department Care Team (Late st Contact Info) Description 12/16/2016 Conversion Encounter [facility] [place] [address] [place] [address] Social History Tobacco Use Types Packs/Day Years [...] on filedocumented in this encounter Care Teams Hot Sealing Machine Operator Relationship Specialty Start Date End Date Shannan Jordan DO [address] [place] [address] PCP - General 12/10/16 10/31/22 documented as of this encounter
--- OUTSIDE RECORDS SUMMARY | 2024-09-20 08:40 | XMS_ITS | Encounter Summary ---
Author Organization [facility] Address [address] [place] [address] Phone Care Team Providers Care Sodder Name Role Phone Shannan Jordan DO Primary Care Provider [phone] Encounter Details Date Type Department Care Team (Late st Contact Info) Description 05/31/2012 Documentation EM Family Medicine [address] [place] [address] Family Medicine, Physician [address] [place], [place] [phone] Social History Tobacco Use Types Packs/Day Years [...] on filedocumented in this encounter Care Teams Sodder Relationship Specialty Start Date End Date Shannan Jordan DO [address] [place] [address] PCP - General 12/10/16 10/31/22 documented as of this encounter
--- OUTSIDE RECORDS SUMMARY | 2024-09-20 08:40 | XMS_ITS | Encounter Summary ---
Author Organization [facility] Address [address] [place] [address] Phone Care Team Providers Care Metal Riveter Name Role Phone Shannan Jordan DO Primary Care Provider [phone] Encounter Details Date Type Department Care Team (Late st Contact Info) Description 07/08/2009 Documentation EM Family Medicine [address] [place] [address] Family Medicine, Physician [address] [place], [place] [phone] Social History Tobacco Use Types Packs/Day Years [...] on filedocumented in this encounter Care Teams Metal Riveter Relationship Specialty Start Date End Date Shannan Jordan DO [address] [place] [address] PCP - General 12/10/16 10/31/22 documented as of this encounter
[2024-09-20 08:41] LABS: MANUAL DIFF FLAG NO
[2024-09-20 09:19] LABS: Basophils Percent Auto 0.5 % (0-2); Eosinophils Absolute Auto 0.1 X10*3/uL (0.0-0.4); Eosinophils Percent Auto 1.7 % (0-4); Hematocrit 39.8 % (37.0-47.0); Hemoglobin 13.7 g/dl (12.0-16.0); Imm Gran Abs Auto 0.02 X10*3/uL (0.00-0.03); Imm Gran Pct Auto 0.3 % (0.0-0.4); Lymphocytes Percent Auto 31.4 % (20-40); Mean Corpuscular HGB Conc 34.4 g/dl (31.0-35.0); Mean Corpuscular Hemoglobin 29.3 pg (27.0-33.0); Mean Platelet Volume 9.5 fL (9.4-12.3); Monocytes Absolute Auto 0.5 X10*3/uL (0.1-1.2); Monocytes Percent Auto 7.3 % (2-11); Neutrophils Absolute Auto 3.8 x10*3/uL (2.0-8.3); Neutrophils Percent Auto 58.8 % (45-73); Platelet Count 292 X10*3/uL (160-400); Red Blood Count 4.68 X10*6/uL (4.20-5.50); Red Cell Distribution Width 12.2 % (11.0-16.0); White Blood Count 6.5 X10*3/uL (4.8-10.8)
[2024-09-20 11:53] LABS: Folate 10.4 ng/mL (> or = 4.0); Vitamin B12 425 pg/mL (200-900)
[2024-09-20 11:57] LABS: Alanine Aminotransferase 35 U/L (0-31); Albumin Level 4.6 g/dL (3.5-5.0); Alkaline Phosphatase 77 U/L (39-117); Anion Gap 10 (12-20); Aspartate Amino Transferase 36 U/L (5-31); Bilirubin Total 0.8 mg/dL (0.0-1.0); Blood Urea Nitrogen 14 mg/dL (9-16); Calcium 9.3 mg/dL (8.4-10.2); Carbon Dioxide 25 mmol/L (22-29); Chloride 107 mmol/L (96-108); Estimated Glomerular Filt Rate > 60; Glucose Fasting 87 mg/dL (60-99); Potassium 4.3 mmol/L (3.3-5.1); Sodium 138 mmol/L (135-145); Total Protein 7.5 g/dL (6.5-8.0); Vitamin D 25-OH Total 29.9 ng/mL (>30)
== END 2024-09-20 08:28 | disposition home or self-care (01) ==
LOC: HO.LAB 08:27
PROVIDERS: PCP Internal Medicine; Visit Provider Internal Medicine
DX: D64.9 Anemia, unspecified (principal); E53.8 Deficiency of other specified B group vitamins; E55.9 Vitamin D deficiency, unspecified; M43.07 Spondylolysis, lumbosacral region
CPT/HCPCS: 36415; 80053; 82306; 82607; 82746; 85025

== ENCOUNTER 2024-09-27 08:05 | Outpatient (REF) | payer OTHER, SELFPAY ==
--- OUTSIDE RECORDS SUMMARY | 2024-09-27 08:08 | XMS_ITS | Encounter Summary ---
Author Organization [facility] Address [address] [place] [address] Phone Care Team Providers Care Herb Grower Name Role Phone Shannan Jordan DO Primary Care Provider [phone] Encounter Details Date Type Department Care Team (Late st Contact Info) Description 08/03/2010 Documentation EM Family Medicine [address] [place] [address] Family Medicine, Physician [address], [place] [phone] Social History Tobacco Use Types Packs/Day Years [...] on filedocumented in this encounter Care Teams Herb Grower Relationship Specialty Start Date End Date Shannan Jordan DO [address] [place] [address] PCP - General 12/10/16 10/31/22 documented as of this encounter
[2024-09-27 09:03] LABS: Alanine Aminotransferase 21 U/L (0-31); Albumin Level 4.6 g/dL (3.5-5.0); Alkaline Phosphatase 73 U/L (39-117); Aspartate Amino Transferase 21 U/L (5-31); Bilirubin Direct 0.3 mg/dL (0.0-0.5); Bilirubin Total 0.8 mg/dL (0.0-1.0); Total Protein 7.4 g/dL (6.5-8.0)
== END 2024-09-27 08:06 | disposition home or self-care (01) ==
LOC: HO.LAB 08:05
PROVIDERS: PCP Internal Medicine; Visit Provider Internal Medicine
DX: R74.01 Elevation of levels of liver transaminase levels (principal)
CPT/HCPCS: 36415; 80076

== ENCOUNTER 2024-11-29 15:38 | Outpatient (REF) | payer OTHER, SELFPAY ==
[2024-11-29 17:30] LABS: Alanine Aminotransferase 22 U/L (0-31); Albumin Level 5.0 g/dL (3.5-5.0); Alkaline Phosphatase 86 U/L (39-117); Anion Gap 15 (12-20); Aspartate Amino Transferase 24 U/L (5-31); Blood Urea Nitrogen 16 mg/dL (9-16); Calcium 9.7 mg/dL (8.4-10.2); Carbon Dioxide 28 mmol/L (22-29); Chloride 101 mmol/L (96-108); Estimated Glomerular Filt Rate > 60; Potassium 4.6 mmol/L (3.3-5.1); Sodium 139 mmol/L (135-145); Total Protein 8.0 g/dL (6.5-8.0)
== END 2024-11-29 15:39 | disposition home or self-care (01) ==
LOC: HO.LAB 15:38
PROVIDERS: PCP Internal Medicine; Visit Provider Nurse Practitioner
DX: K21.9 Gastro-esophageal reflux disease without esophagitis (principal); K59.00 Constipation, unspecified; R11.2 Nausea with vomiting, unspecified; R74.01 Elevation of levels of liver transaminase levels
CPT/HCPCS: 36415; 80053; 99212

== ENCOUNTER 2024-11-29 15:38 | Outpatient (AMB) | payer OTHER, SELFPAY ==
--- NOTE | 2024-11-29 15:40 | A.OFFVIS_ITS ---
Vital Signs 11/29/24 15:43 Height 5 ft 2 in Weight 137 lb BMI 25.1 BP 106/76 Intake Visit Reasons: Follow up constipation/GERD Intake Note: Emelina returns to in office follow up of GERD and constipation. CC: Patient c/o nausea for the last 3 days but she admites that she has been eating more spicy and greasy food. She also c/o constipation and occasional bloating. Clinical Account Specialist Required: No Clinical Account Specialist Services: Clinical Account Specialist Offered & Declined Accompanied by: Self / Same As Patient Allergies pollen extracts Allergy (Intermediate, Verified 11/29/24 15:45) Itchy Eyes, runny nose No Known Drug Allergies Allergy (Unknown, Verified 11/29/24 15:45) none HPI HPI Follow up constipation/GERD: Details: Assessment & Plan (1) Constipation: Code(s): K59.00 - Constipation, unspecified Category: Medical (2) Nausea & vomiting: Code(s): R11.2 - Nausea with vomiting, unspecified Category: Medical (3) GERD (gastroesophageal reflux disease): Code(s): K21.9 - Gastro-esophageal reflux disease without esophagitis Category: Medical Plan She is doing well with the famotidine and is drinking Carreno drink that has greens and fiber. With this her GI conditions are well controlled. ROV 6 mos. Medications: New famotidine (Pepcid) 40 mg PO BEDTIME PRN 30 tabs 6RF gerd K21.9 - Gastro- esophageal reflux disease without esophagitis Laboratory Tests 07/12/24 09/20/24 09/27/24 16:18 08:37 08:15 AST 20 36 H 21 ALT 22 35 H 21 Alkaline Phosphatase 77 73 TSH 0.46 TODAY'S VISIT SHE HAS BEEN UTILIZING THE FAMOTIDINE AND HAS BEEN HELPFUL for as needed use. She would like to continue with this. She has been having some nausea over the last few days, although she also had some severe constipation that seem to come out of no where. She is uncertain if this is because she has been drinking last because of the very hot weather and/or losing more moisture, she does keep her diet high in leafy greens and she does continue her Carreno which helps her move her bowels. She also admits occasionally she will forget her carreno. Right now I think we can just wait and watch I do not think we should take any action. If her symptoms should worsen then she is always welcome to come back and see me. Return office visit in 6 months She has a doorknob complain of transaminitis that she says was discovered on a primary care round of basic testing. However, her labs were normal in June, elevated September 20, but then normal again September 27. This is highly unusual and lens me to suspect that there is some sort of lab error or even error in posting to the correct patient chart. Transaminases just do not tend to elevate and resolve that quickly especially when there is no change in medications and no illness to explain it. I suggest that we retest again and if the transaminases remain normal we can shock this up to some sort of a processing and/or data processing control clerk error. [facility] Medical History Physical exam Tiredness VENANCIO (generalized anxiety disorder) History of multiple miscarriages Complete Threatened Early stage of History of demise, not currently Well woman exam Mild recurrent major depression Insomnia demise Surgical History H/O dilation and curettage Family History Mother Fibromyalgia Breast cancer, Onset Age: 44 Father No problems noted. 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 Current occupational exposures/hazards: No Cognitive needs: No Hearing needs: No Vision needs: No Female Reproductive History Menstrual Age of Menarche: 9 Review of Systems Const Denies fatigue, Denies fever(s), Denies night sweats, Denies poor appetite and Denies weight loss ENT Reports Normal hearing present, Denies dental pain, Denies dysphagia, Denies hearing loss, Denies mouth pain, Denies odynophagia, Denies throat swelling, Denies tongue swelling and Reports other (Dentition adequate) Card Reports no additional complaints Resp Reports no additional complaints GI Details: Denies abdominal pain, Denies melena, Denies bloating, Denies hematochezia, Reports constipation, Denies GI cramping, Denies dysphagia, Denies excessive flatus, Denies early satiety, Denies heartburn, Denies diarrhea, Reports nausea, Denies odynophagia, Denies vomiting and Denies hematemesis Skin/Breast Denies pruritus, Denies lesions, Denies rash and Denies jaundice Neuro Reports Normal hearing present and Denies Abnormal speech present Endo Denies fatigue Aller/Immun Denies throat swelling and Denies tongue swelling Physical Exam Const General: cooperative, no acute distress, well developed and well groomed Nutritional Appearance: average body habitus and well nourished Orientation/consciousness: oriented to person, oriented to place and oriented to time Limitations: No language barrier HEENT Head: Yes normocephalic and Yes atraumatic Eyes General: appearance normal, both eyes and all related structures Pupils: Equal, round and reactive pupils present Neck Neck: Yes normal visual inspection and Yes no lymphadenopathy Thyroid: Thyroid normal Resp Effort & Inspection: normal respiratory effort and able to speak in complete sentences Auscultation: clear to auscultation bilaterally Cardio Rate: regular rate Rhythm: regular rhythm Heart sounds: Normal, physiologic split S2 sound present Peripheral pulses: radial pulses present and posterior tibial pulses present GI Inspection: No distended and No Abdominal panniculus present Palpation (GI): Soft to palpation, nontender, no guarding, not rigid and No hepatosplenomegaly present Percussion: Yes normal to percussion Auscultation: normal bowel sounds Rectal Exam - Female: deferred Skin General skin exam: no rashes or lesions noted, turgor normal, skin not dry, no jaundice, No spider nevi and no striae Rashes: no rashes Nails: normal Neuro General: oriented to person, oriented to place and oriented to time Cranial nerves: Yes Equal, round and reactive pupils present and Yes Normal hearing present Speech: No Abnormal speech present Extrem General: Yes normal to inspection, No clubbing, No cyanosis and No edema Psych Appearance: grossly normal and well kempt Mental Status: mental status grossly normal Speech and movement: Normal speech and movement present Affect: normal affect Attitude: cooperative Thought process: Normal thought process present and not confabulating Thought content: Normal thought content present Insight: Good insight present (Psych) Judgement: Good judgement present (Psych) Assessment & Plan Assessment & Plan (1) GERD (gastroesophageal reflux disease): Code(s): K21.9 - Gastro-esophageal reflux disease without esophagitis Category: Medical (2) Transaminitis: Comment: 07/12/2504/ 16:1808:[id number]:15 AST 20 36 H 21 ALT 22 35 H 21 Alkaline Phosphatase 77 73 TSH 0.46 Code(s): R74.01 - Elevation of levels of liver transaminase levels Category: Medical (3) Constipation: Code(s): K59.00 - Constipation, unspecified Category: Medical (4) Nausea & vomiting: Code(s): R11.2 - Nausea with vomiting, unspecified Category: Medical Plan SHE HAS BEEN UTILIZING THE FAMOTIDINE AND HAS BEEN HELPFUL for as needed use. She would like to continue with this. She has been having some nausea over the last few days, although she also had some severe constipation that seem to come out of no where. She is uncertain if this is because she has been drinking last because of the very hot weather and/or losing more moisture, she does keep her diet high in leafy greens and she does continue her Carreno which helps her move her bowels. She also admits occasionally she will forget her carreno. Right now I think we can just wait and watch I do not think we should take any action. If her symptoms should worsen then she is always welcome to come back and see me. Return office visit in 6 months She has a doorknob complain of transaminitis that she says was discovered on a primary care round of basic testing. However, her labs were normal in June, elevated September 20, but then normal again September 27. This is highly unusual and lens me to suspect that there is some sort of lab error or even error in posting to the correct patient chart. Transaminases just do not tend to elevate and resolve that quickly especially when there is no change in medications and no illness to explain it. I suggest that we retest again and if the transaminases remain normal we can shock this up to some sort of a processing and/or data processing control clerk error. Orders: Orders Comprehensive Met. Panel Today R74.01 - Elevation of levels of liver transaminase levels Coding Level of Care Code Est Pt Level 3 (98615) Diagnoses GERD (gastroesophageal reflux disease) K21.9 Transaminitis R74.01 Constipation K59.00 Nausea & vomiting R11.2
--- OUTSIDE RECORDS SUMMARY | 2024-11-29 15:41 | XMS_ITS | Encounter Summary ---
Author Organization [facility] Address [address] [place] [address] Phone Care Team Providers Care Child Psychiatrist Name Role Phone Shannan Jordan DO Primary Care Provider [phone] Encounter Details Date Type Department Care Team (Late st Contact Info) Description 08/03/2010 Documentation EM Family Medicine [address] [place] [address] Family Medicine, Physician [address] [place] [id number] Social History Tobacco Use Types Packs/Day Years [...] on filedocumented in this encounter Care Teams Child Psychiatrist Relationship Specialty Start Date End Date Shannan Jordan DO [address] [place] [address] PCP - General 12/10/16 10/31/22 documented as of this encounter
--- OUTSIDE RECORDS SUMMARY | 2024-11-29 15:41 | XMS_ITS | Clinical Summary ---
Author Organization [facility] [address] [facility] [address] Address [address] [place] [address] Phone Care Team Providers Care Marine Services Technician Name Role Phone Amelie Valentino MD Primary Care Provider [phone] Allergies Active Allergy Reactions Criticality Noted Date [...] Date depression 05/27/20222024 Overview (09/04/2024): Results of Arapaho Depression Scale (EPDS) Question #10. In the past 7 days, the thought of harming myself has occurred to me: Never EDPS Score: 10 EDPS Interpretation (Maximum Score:30): 10 or greater: Possible Depression. Encounters Date Type Department Care Team Description 09/07/2024 Telephone Obstetrics and Gynecology - [place] [address] [place] [address] Amelie Graves MA 09/04/2024 2:30 PM EDT Office Visit Obstetrics and Gynecology - [place] [address] [place] [id number] Abdoul George CNM Encounter for annual routine gynecological examination (Primary Dx) from Last 3 Months Surgical History Surgery Date Site/Laterality Comments OTHER SURGICAL HISTORY 01/21/2023 PROCEDURE: DE DILATION & CURETTAGE DX&/THER NONOBSTETRIC; COMMENT: Pathology Benign Medical History Medical History Date Comments Mixed anxiety and depressive disorder DX:Mixed anxiety and depress tamiko disorder depression 05/27/2022 Results of Arapaho Depression Scale (EPDS) Question #10. In the [...] Health Maintenance Due Date Last Done Comments HIV Screening 04/04/2022 Hepatitis C Screening 04/04/2022 Social Influencers of Health Screening 04/04/2022 COVID-19 Vaccine ( season) 2024 Depression Screening 05/02/2024 Influenza Vaccine (#1) 2024 , 03/13/2015, 06/11/2011, Additional history exists Cervical Cancer [...] 5 Years) and At-Risk Patients (6 to 49 Years) Aged Out No longer eligible based [...] lesion or malignancy 09/06/2024 4:20 PM EDT [facility] General Categorization Negative 09/06/2024 4:20 PM EDT [facility] LMP 08/30/2024 09/06/2024 4:20 PM EDT [facility] Specimen Adequacy Satisfactory for evaluation, endocervical/bob sformation zone component present 09/06/2024 4:20 PM EDT [facility] Pap Methodology Liquid Based Pap Test 09/06/2024 4:20 PM EDT [facility] Disclaimer The Pap test is a screening test which carries an inherent false negative rate. These test results should be correlated with the patient's clinical findings and history. This Pap test was processed using an automated screening system. Technical cytopathology services provided by [facility], at [address] [place] [address] (CLIA # [id number]/Alexsander Osorio MD, Cleaning Porter.) 09/06/2024 4:20 PM EDT [facility] Console Pap Interpretation Reported 09/06/2024 4:20 PM EDT [facility] Brushing/Spatula Cervix uteri structure / Unknown 09/04/2024 2:52 PM EDT 09/04/2024 2:52 PM EDT us Abdoul George CNM LAB CYTOLOGY ORDERABLES Final Result [facility] [address] [place] [address], from Last 3 Months Insurance [facility] Care Teams Marine Services Technician Relationship Specialty Start Date End Date Amelie Valentino MD [address] [facility] , [address] [facility] [place] PCP - General 05/06/22
[2024-11-29 15:43] VITALS: BP 106/76; BMI 25.1
== END 2024-11-29 16:41 | disposition home or self-care (01) ==
LOC: HO.HGI 15:38
PROVIDERS: PCP Internal Medicine; Visit Provider Nurse Practitioner
DX: K21.9 Gastro-esophageal reflux disease without esophagitis (principal); R74.01 Elevation of levels of liver transaminase levels; K59.00 Constipation, unspecified; R11.2 Nausea with vomiting, unspecified
CPT/HCPCS: 99213

== ENCOUNTER 2024-12-13 11:09 | Outpatient (AMB) | payer OTHER, SELFPAY ==
[2024-12-13 11:23] VITALS: BP 122/64; PULSE 88; O2SAT 99; BMI 24.7
--- NOTE | 2024-12-13 11:23 | MHC.PC.OV ---
Vital Signs 12/13/24 11:23 Height 5 ft 2 in Weight 135 lb BMI 24.7 BP 122/64 Blood Pressure Location Lt brachial Pulse 88 Pulse Source Pulse Oximeter Pulse Oximetry (%) 99 Oxygen Delivery Method Room Air Intake Visit Reasons: Ear pain Strike Off Machine Operator Required: No Accompanied by: Self / Same As Patient Allergies pollen extracts Allergy (Intermediate, Verified 12/13/24 11:24) Itchy Eyes, runny nose No Known Drug Allergies Allergy (Unknown, Verified 12/13/24 11:24) none Medication List - Last Reconciled 12/13/24 by Regine Bustos PA-C cetirizine (All Day Allergy (cetirizine)) 10 mg PO DAILY PRN 90 days cholecalciferol (vitamin D3) 25 mcg PO DAILY 90 days famotidine (Pepcid) 40 mg PO BEDTIME PRN fluocinolone acetonide oil 0.01% (DermOtic Oil) 5 drps otic (ears) BID 7 days fluticasone propionate 50 mcg/actuation (Flonase Allergy Relief) 1 spray intranasal DAILY 30 days lidocaine 5% 1 patch topically; 30 days methocarbamol 750 mg PO TID PRN 30 days sumatriptan succinate 50 mg PO Q2-4H PRN 30 days Tobacco use date assessed: 07/12/24 Dental Screening Dental Screen Date: 12/13/24 Did you have a dental visit in the last 12 months?: Yes Did you have a dental problem in the last 6 months where you did not have access to dental care?: No Was dental information given to patient?: Patient has dentist HPI Ear pain HPI Details 29 year old female with past medical history of GERD, insomnia, VENANCIO coming in for acute problem. Presenting with ear discomfort and pressure. The symptoms began last Tuesday and worsened by Tuesday morning, initially thought to be due to allergies. She has been using allergy medications and nasal spray, but the symptoms have persisted. She denies fever, cough, rhinorrhea, sore throat, or neck pain. The patient describes a sensation of clogged ears with equal discomfort bilaterally and unclear hearing. Stress and potential nocturnal teeth grinding are acknowledged as contributing factors to the ear pain. [facility] Medical History Physical exam Tiredness VENANCIO (generalized anxiety disorder) History of multiple miscarriages Complete Threatened Early stage of History of demise, not currently Well woman exam Mild recurrent major depression Insomnia demise Surgical History H/O dilation and curettage Family History Mother Fibromyalgia Breast cancer, Onset Age: 44 Father No problems noted. 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 1. Little interest or pleasure in doing things: not at all 2. Feeling down, depressed, or hopeless: not at all 3. Trouble falling or staying asleep, or sleeping too much: not at all 4. Feeling tired or having little energy: not at all 5. Poor appetite or overeating: not at all 6. Feeling bad about yourself - or that you are a failure or have let yourself or your family down: not at all 7. Trouble concentrating on things, such as reading the newspaper or watching television: not at all 8. Moving or speaking so slowly that other people could have noticed. Or the opposite - being so fidgety or restless that you have been moving around a lot more than usual: not at all 9. Thoughts that you would be better off or of hurting yourself in some way: not at all Total score: 0 55076 - PHQ-9 Billing: Yes Source: Developed by Drs. Jian Medina, Valentina Chung, Michael Du and colleagues, with an educational crys from [employer]. Thrive Questionnaire Date Thrive assessed: 12/13/24 I am a: Patient What is your living situation today?: I have a steady place to live Within the past 12 months, did the food you bought not last and you didn't have the money to get more?: Never true Within the past 12 months, did you worry whether your food would run out before you got money to buy more?: Never true Do you have trouble paying for medicines?: No Do you have trouble getting transportation to medical appointments?: No Do you have trouble paying your heating and electricity bill?: No Do you have trouble taking care of your child, family member or friend?: No Do you have trouble with day-to-day activities such as bathing, preparing meals, shopping, managing finances, etc.?: No Are you currently unemployed and looking for a job?: No Are you interested in more education?: Yes Please select the resources that you would like help with: None Currently or been in a relationship where the following occur: I choose not to answer THRIVE Score: 0 AUDIT C Alcohol Use Questionnaire (AUDIT-C) 1. How often do you have a drink containing alcohol?: Monthly or less Total Score: 1 VENANCIO-7 AMB Questionnaire VENANCIO-7 Date VENANCIO - 7 assessed: 12/13/24 Feeling nervous, anxious, or on edge: 0 = Not at all Not being able to stop or control worryin = Not at all Worrying too much about different things: 1 = Several days Trouble relaxin = Several days Being so restless that it is hard to sit still: 1 = Several days Becoming easily annoyed or irritable: 1 = Several days Feeling afraid as if something awful might happen: 1 = Several days Total VENANCIO-7 score (0-4 normal; 5-9 mild; 10-14 moderate; 15-21 severe): 5 Source: Developed by Drs. Jian Medina, Valentina Chung, Michael Du and colleagues, with an educational crys from [employer]. VENANCIO-7 Assessment Billing VENANCIO-7 Assessment Tool: VENANCIO-7 Assessment 52383 Review of Systems Const Denies body aches, Denies chills, Denies fatigue and Denies fever(s) ENT Details: ear pain and discomfort without drainage Denies nasal congestion, Denies nasal discharge, Denies nose pain, Denies sinus pain and Denies sore throat Card Denies chest pain and Denies dyspnea Resp Denies dyspnea GI Denies nausea and Denies vomiting Endo Denies fatigue Physical exam (Primary Care) Vital Signs: Last Vital Signs Pulse 88 12/13/24 11:23 BP 122/64 12/13/24 11:23 Pulse Ox 99 12/13/24 11:23 Oxygen Delivery Method Room Air 12/13/24 11:23 BMI result Body Mass Index 24.7 Tobacco/Smoking Status: Tobacco use Status Tobacco use date assessed 07/12/24 12/13/24 11:27 Patient Tobacco Use Status Never used Tobacco 12/13/24 11:27 e-Cigarette/Vaping Use Never Used 12/13/24 11:27 PHQ-9: PHQ-9 Score PHQ-9: Total score 0 12/13/24 11:29 Thrive Assessment: Date of Thrive Assessment Date Thrive assessed 12/13/24 12/13/24 11:27 Currently or been in a relationship where the following occur: I choose not to answer Const General: cooperative, healthy appearing, comfortable and no acute distress Orientation/consciousness: patient oriented x3 HENMT Head: Yes normocephalic Ears: hearing grossly normal bilaterally, TM's normal bilaterally and EAC's normal General nose exam: Normal external nose present Eyes General: appearance normal, both eyes and all related structures Conjunctivae: conjunctivae normal Neck Neck: Yes full ROM and Yes no lymphadenopathy Resp Effort & Inspection: normal respiratory effort Cardio Rate: regular rate Neuro General: patient oriented x3 Gait exam (Neuro): Normal gait present Psych Affect: normal affect Attitude: cooperative Insight: Good insight present (Psych) Judgement: Good judgement present (Psych) Coding Level of Care Code Est Pt Level 3 (03462) Diagnoses Ear pain H92.09 Bruxism F45.8 Additional Codes VENANCIO-7 Assessment Billing - VENANCIO-7 Assessment Tool: VENANCIO-7 Assessment 79316 ([id number]) PHQ-9 - 41185 - PHQ-9 Billing: Yes ([id number]) Assessment & Plan Assessment & Plan (1) Ear pain: Code(s): H92.09 - Otalgia, unspecified ear Category: Medical Plan: TMs are visualized as intact with well aerated middle ear spaced without perforation, bulging or retraction. The patient will receive steroid ear drops to reduce inflammation, itching and discomfort in the ears. A mouth guard is recommended for use during sleep to prevent teeth grinding, which may be contributing to the ear pain. The patient should continue using allergy medications and nasal spray to manage allergic rhinitis symptoms. Refills for Zyrtec and Flonase will be provided to ensure ongoing management of allergy symptoms. She will also use ibuprofen and tylenol as needed for pain. (2) Bruxism: Code(s): F45.8 - Other somatoform disorders Category: Medical Plan: see above plan. Plan This note was constructed using voice recognition software. While every effort has been made to ensure accuracy and dealership manager, still areas may have been included sometimes these areas may affect the content or meeting of the given symptoms. Total time spent caring for the patient today was 15 minutes. This includes time spent before the visit reviewing the chart, time spent during the visit, and time spent after the visit and documentation. Patient was informed and verbally consented to the use of an ambient scribe for clinic note documentation during this visit. Medications: New fluocinolone acetonide oil 0.01% (DermOtic Oil) 5 drps otic (ears) BID 20 mL 0RF 7 days ibuprofen 400 mg PO Q8H PRN 20 tabs 0RF pain Refilled fluticasone propionate 50 mcg/actuation (Flonase Allergy Relief) administer into each nostril 1 spray intranasal DAILY 16 grams 6RF 30 days cetirizine (All Day Allergy (cetirizine)) 10 mg PO DAILY PRN 90 tabs 0RF allergy symptoms 90 days
--- OUTSIDE RECORDS SUMMARY | 2024-12-13 12:17 | XMS_ITS | Encounter Summary ---
Author Organization [facility] Address [address] [place] [address] Phone Care Team Providers Care Aquatic Habitat Biologist Name Role Phone Shannan Jordan DO Primary Care Provider [phone] Encounter Details Date Type Department Care Team (Late st Contact Info) Description 08/03/2010 Documentation EM Family Medicine [address] [place] [address] Family Medicine, Physician [address] [place] [phone] Social History Tobacco Use Types Packs/Day Years [...] on filedocumented in this encounter Care Teams Aquatic Habitat Biologist Relationship Specialty Start Date End Date Shannan Jordan DO [address] [place] [address] PCP - General 12/10/16 10/31/22 documented as of this encounter
--- OUTSIDE RECORDS SUMMARY | 2024-12-13 12:17 | XMS_ITS | Clinical Summary ---
Author Organization [facility] [address] [facility] lding Address [address] [place] [address] Phone Care Team Providers Care Flocculator Operator Name Role Phone Amelie Valentino MD Primary Care Provider [phone] Allergies Active Allergy Reactions Criticality Noted Date [...] Date depression 05/27/20222024 Overview (09/04/2024): Results of [place] Depression Scale (EPDS) Question #10. In the past 7 days, the thought of harming myself has occurred to me: Never EDPS Score: 10 EDPS Interpretation (Maximum Score:30): 10 or greater: Possible Depression. Surgical History Surgery Date Site/Laterality Comments OTHER SURGICAL HISTORY 01/21/2023 PROCEDURE: [place] DILATION & CURETTAGE DX&/THER NONOBSTETRIC; COMMENT: Pathology Benign Medical History Medical History Date Comments Mixed anxiety and depressive disorder DX:Mixed anxiety and depress tamiko disorder depression 05/27/2022 Results of [place] Depression Scale (EPDS) Question #10. In the [...] ont Epidur al Livin g Javia n Feinl and, CNM Complications:Intrauterine g rowth restriction (IUGR) [...] Health Screening 04/04/2022 COVID-19 Vaccine (1 - 2024-25 season) 2024 Depression Screening 05/02/2024 Influenza Vaccine [...] routine gynecological examination from Last 3 Months or Most Recently Relevant to Health Maintenance Results * Pap smear (09/04/2024 2:52 PM EDT) Interpretation Negative for intraepithelial lesion or malignancy 09/06/2024 4:20 PM EDT [facility] General Categorization Negative 09/06/2024 4:20 [...] screening system. Technical cytopathology services provided by [facility], at [address] [place] [address] (CLIA # [id number]/Alexsander Osorio MD, Slunk Skin Curer.) 09/06/2024 4:20 PM EDT [facility] Console Pap Interpretation Reported 09/06/2024 4:20 PM EDT [facility] Brushing/Spatula Cervix uteri structure / Unknown 09/04/2024 2:52 PM EDT 09/04/2024 2:52 PM EDT us Abdoul NO LAB CYTOLOGY ORDERABLES Final Result [facility]) [facility] [address] [place] [address], from Last 3 Months or Most Recently Relevant to Health Maintenance Insurance [facility] [employer] Care Teams Flocculator Operator Relationship Specialty Start Date End Date Amelie Valentino MD [address] [place] [address] , [address] [facility] D/B/A: [facility] TERRANCE Ayala PCP - General 05/06/22
== END 2024-12-13 11:37 | disposition home or self-care (01) ==
LOC: HO.HMCH 11:09
PROVIDERS: PCP Internal Medicine
DX: H92.09 Otalgia, unspecified ear (principal); F45.8 Other somatoform disorders

== ENCOUNTER → 2024-12-13 11:09 | Outpatient (BNVA) | payer OTHER, SELFPAY | PROVIDERS: PCP Internal Medicine | DX: H92.03 Otalgia, bilateral (principal); G47.63 Sleep related bruxism | CPT/HCPCS: 96127; 99212 ==

== ENCOUNTER 2025-01-08 16:05 | Outpatient (AMB) | payer OTHER, SELFPAY ==
[2025-01-08 16:11] VITALS: BP 120/88; PULSE 108; RESP 18; TEMP 36.3; O2SAT 98; BMI 24.0
--- NOTE | 2025-01-08 16:11 | A.OFFPC_ITS ---
Vital Signs 01/08/25 16:11 Height 5 ft 2 in Weight 131 lb 6 oz BMI 24.0 BP 120/88 Blood Pressure Location Lt brachial Position Sitting Respiration 18 Pulse 108 H Pulse Source Pulse Oximeter Temp 97.3 F Temp Source Temporal Artery Scan Pulse Oximetry (%) 98 Oxygen Delivery Method Room Air Intake Visit Reasons: Annual P.E Executive Chef Required: No Accompanied by: Self / Same As Patient Allergies pollen extracts Allergy (Intermediate, Verified 01/08/25 16:35) Itchy Eyes, runny nose No Known Drug Allergies Allergy (Unknown, Verified 01/08/25 16:35) none Medication List - Last Reconciled 01/08/25 by Amelie Valentino MD cetirizine (All Day Allergy (cetirizine)) 10 mg PO DAILY PRN 90 days cholecalciferol (vitamin D3) 25 mcg PO DAILY 90 days famotidine (Pepcid) 40 mg PO BEDTIME PRN fluticasone propionate 50 mcg/actuation (Flonase Allergy Relief) 1 spray intranasal DAILY 30 days lidocaine 5% 1 patch topically; 30 days methocarbamol 750 mg PO TID PRN 30 days Tobacco use date assessed: 01/08/25 Dental Screening Dental Screen Date: 01/08/25 Did you have a dental visit in the last 12 months?: Yes Did you have a dental problem in the last 6 months where you did not have access to dental care?: No Was dental information given to patient?: Patient has dentist HPI HPI Comments History of Present Illness Details The patient is a 29-year-old female presenting for a physical exam. She has a history of allergic rhinitis, with symptoms of nasal congestion and irritation. She also reports a sensation of blunted hearing in her ears, for which ear drops have been prescribed. Her preventative care measures include a Tdap vaccine in 2019 and a Pap smear in 2020, which was negative for HPV. [facility] Medical History Physical exam Tiredness VENANCIO (generalized anxiety disorder) History of multiple miscarriages Complete Threatened Early stage of History of demise, not currently Well woman exam Mild recurrent major depression Insomnia demise Surgical History H/O dilation and curettage Family History (Updated 01/08/25 @ 16:40 by Amelie Valentino MD) Mother Fibromyalgia Breast cancer Father No problems noted. Maternal Grandfather Colon polyps Social History Housing: Apartment Alcohol intake: current Alcohol intake frequency: holidays/special occasions only Patient Tobacco Use Status: Never used Tobacco e-Cigarette/Vaping Use: Never Used Second Hand Smoke Exposure: No service: No Current occupational status: employed Current occupation: [employer] Current occupational exposures/hazards: No Cognitive needs: No Hearing needs: No Vision needs: No Female Reproductive History Menstrual Age of Menarche: 9 Questionnaire PHQ-9 Over the last 2 weeks, how often have you been bothered by any of the following problems? 1. Little interest or pleasure in doing things: not at all 2. Feeling down, depressed, or hopeless: not at all 3. Trouble falling or staying asleep, or sleeping too much: not at all 4. Feeling tired or having little energy: not at all 5. Poor appetite or overeating: not at all 6. Feeling bad about yourself - or that you are a failure or have let yourself or your family down: not at all 7. Trouble concentrating on things, such as reading the newspaper or watching television: not at all 8. Moving or speaking so slowly that other people could have noticed. Or the opposite - being so fidgety or restless that you have been moving around a lot more than usual: not at all 9. Thoughts that you would be better off or of hurting yourself in some way: not at all Total score: 0 Depression Screening Interpretation: Negative Depression Screening Done: Yes 23378 - PHQ-9 Billing: Yes Source: Developed by Drs. Jian Medina, Valentina Chung, Michael Du and colleagues, with an educational crys from [employer]. Thrive Questionnaire Date Thrive assessed: 01/08/25 I am a: Patient What is your living situation today?: I have a steady place to live Within the past 12 months, did the food you bought not last and you didn't have the money to get more?: Never true Within the past 12 months, did you worry whether your food would run out before you got money to buy more?: Never true Do you have trouble paying for medicines?: No Do you have trouble getting transportation to medical appointments?: No Do you have trouble paying your heating and electricity bill?: No Do you have trouble taking care of your child, family member or friend?: No Do you have trouble with day-to-day activities such as bathing, preparing meals, shopping, managing finances, etc.?: No Are you currently unemployed and looking for a job?: No Are you interested in more education?: Yes Please select the resources that you would like help with: None Currently or been in a relationship where the following occur: I choose not to answer THRIVE Score: 0 AUDIT C Alcohol Use Questionnaire (AUDIT-C) 1. How often do you have a drink containing alcohol?: Monthly or less 2. How many drinks containing alcohol do you have on a typical day when you are drinking?: 1 or 2 3. How often do you have six or more drinks on one occasion?: Never Total Score: 1 Score Reviewed/Action Taken: No VENANCIO-7 AMB Questionnaire VENANCIO-7 Date VENANCIO - 7 assessed: 01/08/25 Feeling nervous, anxious, or on edge: 0 = Not at all Not being able to stop or control worryin = Not at all Worrying too much about different things: 1 = Several days Trouble relaxin = Several days Being so restless that it is hard to sit still: 1 = Several days Becoming easily annoyed or irritable: 1 = Several days Feeling afraid as if something awful might happen: 1 = Several days Total VENANCIO-7 score (0-4 normal; 5-9 mild; 10-14 moderate; 15-21 severe): 5 Source: Developed by Drs. Jian Medina, Valentina Chung, Michael Du and colleagues, with an educational crys from [employer]. VENANCIO-7 Assessment Billing VENANCIO-7 Assessment Tool: VENANCIO-7 Assessment 18049 Review of Systems Const All systems reviewed & are unremarkable except as noted in HPI and below Card Denies chest pain at rest, Denies chest pain with activity, Denies edema, Denies irregular heart rhythm, Denies claudication, Denies dyspnea, Denies dyspnea on exertion, Denies orthopnea, Denies paroxysmal nocturnal dyspnea and Denies slow heart rate Resp Denies cough, Denies dyspnea and Denies dyspnea on exertion GI Denies abdominal pain, Denies change in bowel habits, Denies excessive flatus, Denies nausea and Denies vomiting Denies urinary incontinence, Denies urinary hesitancy and Denies urinary urgency Neuro Denies lack of coordination Physical exam (Primary Care) Vital Signs: Last Vital Signs Temp 97.3 F 01/08/25 16:11 Pulse 108 H 01/08/25 16:11 Resp 18 01/08/25 16:11 BP 120/88 01/08/25 16:11 Pulse Ox 98 01/08/25 16:11 Oxygen Delivery Method Room Air 01/08/25 16:11 BMI result Body Mass Index 24.0 Tobacco/Smoking Status: Tobacco use Status Tobacco use date assessed 01/08/25 01/08/25 16:13 Patient Tobacco Use Status Never used Tobacco 01/08/25 16:13 e-Cigarette/Vaping Use Never Used 01/08/25 16:13 PHQ-9: PHQ-9 Score PHQ-9: Total score 0 01/08/25 16:38 Depression Screening Interpretation: Negative Thrive Assessment: Date of Thrive Assessment Date Thrive assessed 01/08/25 01/08/25 16:13 Currently or been in a relationship where the following occur: I choose not to answer [facility] Head: Yes normal to inspection, Yes normocephalic and Yes atraumatic Ears: external ears normal Eyes General: appearance normal, both eyes and all related structures Eyelids: Yes eyelids normal Conjunctivae: conjunctivae normal Neck Neck: Yes normal visual inspection and Yes supple Resp Effort & Inspection: normal respiratory effort Auscultation: clear to auscultation bilaterally Cardio Jugular venous distension: no JVD Rate: regular rate Rhythm: regular rhythm Heart sounds: S1 normal heart sound present and S2 normal heart sound present GI Inspection: Yes normal to inspection Palpation (GI): Soft to palpation and nontender Auscultation: normal bowel sounds Skin General skin exam: no rashes or lesions noted Neuro General: no focal motor deficits Extrem General: Yes full ROM Psych Appearance: grossly normal Coding Level of Care Code Est Pt Level 3 (04074) Est Pt Prev Care 18-39y(41167) Diagnoses Physical exam Z00.00 Ear pain H92.09 Additional Codes VENANCIO-7 Assessment Billing - VENANCIO-7 Assessment Tool: VENANCIO-7 Assessment 12057 ([id number]) PHQ-9 - 97346 - PHQ-9 Billing: Yes ([id number]) Time Spent (min) 33 Assessment & Plan Assessment & Plan (1) Physical exam: Code(s): Z00.00 - Encounter for general adult medical examination without abnormal findings Category: Medical (2) Ear pain: Code(s): H92.09 - Otalgia, unspecified ear Category: Medical Plan Plan Patient was informed and verbally consented to the use of an ambient scribe for clinic note documentation during this visit. 1. Encounter for general adult medical examination without abnormal findings Z00.00 Repeat in a year. 2. Otalgia, unspecified ear H92.09 Ear drops have been prescribed to address the sensation of blunted hearing. Orders: Orders Vitamin D 25-OH Total 01/08/25 E55.9 - Vitamin D deficiency, unspecified Lipid Panel 01/08/25 Z00.00 - Encounter for general adult medical examination without abnormal findings Comprehensive [place]. Panel Fast 01/08/25 Z00.00 - Encounter for general adult medical examination without abnormal findings Medications: New fluocinolone acetonide oil 0.01% (DermOtic Oil) 5 drps otic (ear) left BID 20 mL 0RF 7 days H92.09 - Otalgia, unspecified ear
--- OUTSIDE RECORDS SUMMARY | 2025-01-08 18:10 | XMS_ITS | Encounter Summary ---
Author Organization [facility] Address [address] [place] [address] Phone Care Team Providers Care Beverage Steward Name Role Phone Shannan Jordan DO Primary Care Provider [phone] Encounter Details Date Type Department Care Team (Late st Contact Info) Description 07/08/2009 Documentation EM Family Medicine [address] [place] [address] Family Medicine, Physician [address], [place] [phone] Social History Tobacco Use Types Packs/Day Years [...] on filedocumented in this encounter Care Teams Beverage Steward Relationship Specialty Start Date End Date Shannan Jordan DO [address] [place] [address] PCP - General 12/10/16 10/31/22 documented as of this encounter
--- OUTSIDE RECORDS SUMMARY | 2025-01-08 18:10 | XMS_ITS | Encounter Summary ---
Author Organization [facility] Address [address] [place] [address] Phone Care Team Providers Care Green Chain Operator Name Role Phone Shannan Jordan DO Primary Care Provider [phone] Encounter Details Date Type Department Care Team (Late st Contact Info) Description 05/31/2012 Documentation EM Family Medicine [address] [place] [address] Family Medicine, Physician [address] [phone] Social History Tobacco Use Types Packs/Day Years [...] on filedocumented in this encounter Care Teams Green Chain Operator Relationship Specialty Start Date End Date Shannan Jordan DO [address] [place] [address] PCP - General 12/10/16 10/31/22 documented as of this encounter
--- OUTSIDE RECORDS SUMMARY | 2025-01-08 18:10 | XMS_ITS | Encounter Summary ---
Author Organization [facility] Address [address] [place] [address] Phone Care Team Providers Care Rawhide Trimmer Name Role Phone Shannan Jordan DO Primary Care Provider [phone] Encounter Details Date Type Department Care Team (Late st Contact Info) Description 05/16/2013 Documentation EM Family Medicine [address] [place] [address] Family Medicine, Physician [address], [place] [phone] Social History Tobacco Use Types Packs/Day Years [...] on filedocumented in this encounter Care Teams Rawhide Trimmer Relationship Specialty Start Date End Date Shannan Jordan DO [address] [place] [address] PCP - General 12/10/16 10/31/22 documented as of this encounter
--- OUTSIDE RECORDS SUMMARY | 2025-01-08 18:10 | XMS_ITS | Encounter Summary ---
Author Organization [facility] Address [address] [place] [address] Phone Care Team Providers Care Staff Electronic Warfare Officer Name Role Phone Shannan Jordan DO Primary Care Provider [phone] Encounter Details Date Type Department Care Team (Late st Contact Info) Description 07/09/2009 Documentation EM Family Medicine [address] [place] [address] Family Medicine, Physician [address] [phone] Social History Tobacco Use Types Packs/Day Years [...] on filedocumented in this encounter Care Teams Staff Electronic Warfare Officer Relationship Specialty Start Date End Date Shannan Jordan DO [address] [place] [address] PCP - General 12/10/16 10/31/22 documented as of this encounter
--- OUTSIDE RECORDS SUMMARY | 2025-01-08 18:10 | XMS_ITS | Encounter Summary ---
Author Organization [facility] Address [address] [place] [address] Phone Care Team Providers Care Master Planner Name Role Phone Shannan Jordan DO Primary Care Provider [phone] Encounter Details Date Type Department Care Team (Late st Contact Info) Description 07/23/2011 Documentation EM Family Medicine [address] [place] [address] Family Medicine, Physician [address] [place] [place] [phone] Social History Tobacco Use Types Packs/Day Years [...] on filedocumented in this encounter Care Teams Master Planner Relationship Specialty Start Date End Date Shannan Jordan DO [address] [place] [address] PCP - General 12/10/16 10/31/22 documented as of this encounter
--- OUTSIDE RECORDS SUMMARY | 2025-01-08 18:10 | XMS_ITS | Encounter Summary ---
Author Organization [facility] Address [address] [place] [address] Phone Care Team Providers Care Wood Finisher Apprentice Name Role Phone Shannan Jordan DO Primary Care Provider [phone] Encounter Details Date Type Department Care Team (Late st Contact Info) Description 12/16/2016 Conversion Encounter [facility] [address] [place] [address] Social History Tobacco Use Types Packs/Day Years [...] on filedocumented in this encounter Care Teams Wood Finisher Apprentice Relationship Specialty Start Date End Date Shannan Jordan DO [address] [place] [address] PCP - General 12/10/16 10/31/22 documented as of this encounter
--- OUTSIDE RECORDS SUMMARY | 2025-01-08 18:10 | XMS_ITS | Encounter Summary ---
Author Organization [facility] Address [address] [place] [address] Phone Care Team Providers Care Intellectual Property Counsel Name Role Phone Shannan Jordan DO Primary Care Provider [phone] Encounter Details Date Type Department Care Team (Late st Contact Info) Description 07/08/2009 Documentation EM Family Medicine [address] [place] [address] Family Medicine, Physician [address] [phone] Social History Tobacco Use Types Packs/Day Years [...] on filedocumented in this encounter Care Teams Intellectual Property Counsel Relationship Specialty Start Date End Date Shannan Jordan DO [address] [place] [address] PCP - General 12/10/16 10/31/22 documented as of this encounter
--- OUTSIDE RECORDS SUMMARY | 2025-01-08 18:10 | XMS_ITS | Clinical Summary ---
Author Organization [facility] Address [address] [place] [address] Phone Care Team Providers Care Copper Flotation Operator Name Role Phone Unavailable Primary Care [...] 83 08/16/2016 12:00 AM EDT Temperature 36.6 C (97.8 F) 08/16/2016 12:00 AM EDT Respiratory Rate - - Oxygen Saturation - - Inhaled Oxygen Concentration - - Weight 55.7 kg (122 lb 12.8 oz) 017 12:00 AM EDT Height 154.3 cm (5' 0.75 ) 08/16/2016 1 2:00 AM EDT Body Mass Index 23.39 08/16/2016 12:00 AM EDT Plan of Treatment Health Maintenance Due Date Last Done Comments Influenza Vaccines (#1) 2024 03/13/2015, 06/11 COVID-19 Vaccine ( season) 2024 [...] complete this topic Procedures * Due to [place] state law, this organization might not be sharing sensitive test results. Procedure Name Priority Date/Time Associated Diagnosis Comments CHLAMYDIA AND GONORRHEA, AMPLIFIED Routine 11/19/2014 2:18 PM EDT from Last 3 Months or Most Recently Relevant to Health Maintenance Results * Due to [place] state law, this organization might not be sharing sensitive test results. * Chlamydia and Gonorrhoea, Amplified (11/19/2014 2:18 PM EDT) URINE GC AMP PROBE NEGATIVE [facility] Comment: No Neisseria Gonorrhoeae RNA detected in this patient's sample (REFERENCE RANGE/NORMAL VALUE: NOT DETECTED) NOTE: This test uses managing director atlas-mediated amplification method to detect rRNA from C.Trachomatis [...] without risk of sexual abuse. Consult the [facility] [place] if needed. Contact phone number . Therapeutic failure or success cannot be determined with the Aptima Combo2 assay since nucleic acid may persist following appropriate antimicrobial therapy. The Centers for Disease Control and Prevention (CDC) recommends confirmatory retesting using culture or a different nucleic acid amplification test when positive results occur, if indicated. Testing performed or reported by [facility], a Service of [facility], [address] [place] [address] Bernard Duke MD, PhD, Pbx Manager URINE CHLAMYDIA AMP PROBE NEGATIVE [facility] Comment: No Chlamydia Trachomatis RNA detected in this patient's sample (REFERENCE RANGE/NORMAL VALUE: NOT DETECTED) 11/19/2014 2:18 PM EDT Narrative [facility] - 11/19/2014 2:18 PM EDT URINE CHLAMYDIA GC AMP PROBE us Adrianna Alicia NP LAB MICROBIOLOGY - GENERAL OR DERABLES Final Result [facility] [address] [place] [address], from Last 3 Months or Most Recently Relevant to Health Maintenance
--- OUTSIDE RECORDS SUMMARY | 2025-01-08 18:10 | XMS_ITS | Clinical Summary ---
Author Organization [facility] [address] [facility] lding Address [address] [place] [address] Phone Care Team Providers Care Shop Supervisor Name Role Phone Amelie Valentino MD Primary Care Provider [phone] Allergies Active Allergy Reactions Criticality Noted Date [...] Date depression 05/27/20222024 Overview (09/04/2024): Results of [place] Depression Scale (EPDS) Question #10. In the past 7 days, the thought of harming myself has occurred to me: Never EDPS Score: 10 EDPS Interpretation (Maximum Score:30): 10 or greater: Possible Depression. Surgical History Surgery Date Site/Laterality Comments OTHER SURGICAL HISTORY 01/21/2023 PROCEDURE: [place] DILATION & CURETTAGE DX&/THER NONOBSTETRIC; COMMENT: Pathology Benign Medical History Medical History Date Comments Mixed anxiety and depressive disorder DX:Mixed anxiety and depress tamiko disorder depression 05/27/2022 Results of [place] Depression Scale (EPDS) Question #10. In the [...] Sexual Orientation Not on file Obstetrics History * This document contains information received from the source organization and may not represent a complete record from that organization. Para Term AB IAB SAB Ectopic Multiple Livin g Live Births 3 1 1 1 1 Date Outcome GA Total Labor Labor/2nd/3rd Weight Sex Type Anes PTL Mirna A1 A5 Name Clin 2020 2022 Term 37w 1d 2637 g (93 oz) M Vag-S pont Epidur al Livin g Javian Feinl and, CNM Complications:Intrauterine g rowth restriction [...] 04/04/2022 Social Influencers of Health Screening 04/04/2022 Depression Screening 05/02/2024 COVID-19 Vaccine ( season) 2024 Influenza Vaccine (#1) 2024 , 03/13/2015, 06/11/2011, [...] lesion or malignancy 09/06/2024 4:20 PM EDT [facility] General Categorization Negative 09/06/2024 4:20 PM EDT [facility] LMP 08/30/2024 09/06/2024 4:20 PM EDT [facility] Specimen Adequacy Satisfactory for evaluation, endocervical/bob sformation zone component present 09/06/2024 4:20 PM EDT [facility] Pap Methodology Liquid Based Pap Test 09/06/2024 4:20 PM EDT [facility] Disclaimer The Pap test is a screening test which carries an inherent false negative rate. These test results should be correlated with the patient's clinical findings and history. This Pap test was processed using an automated screening system. Technical cytopathology services provided by [facility], at [address] [place] [id number] (CLIA # [id number]/Alexsander Osorio MD, Treating Plant Pumper.) 09/06/2024 4:20 PM EDT [facility] Console Pap Interpretation Reported 09/06/2024 4:20 PM EDT [facility] Brushing/Spatula Cervix uteri structure / Unknown 09/04/2024 2:52 PM EDT 09/04/2024 2:52 PM EDT [facility] CYTOLOGY ORDERABLES Final Result [facility] [address] [place] [address], from Last 3 Months or Most Recently Relevant to Health Maintenance Insurance [facility] [employer] Care Teams Shop Supervisor Relationship Specialty Start Date End Date Amelie Valentino MD [address] [facility] , [address] [facility] D/B/A: [facility] [place], [place] PCP - General 05/06/22
--- OUTSIDE RECORDS SUMMARY | 2025-01-08 18:10 | XMS_ITS | Encounter Summary ---
Author Organization [facility] Address [address] [place] [address] Phone Care Team Providers Care Special Service Officer Name Role Phone Shannan Jordan DO Primary Care Provider [phone] Encounter Details Date Type Department Care Team (Late st Contact Info) Description 08/03/2010 Documentation EM Family Medicine [address] [place] [address] Family Medicine, Physician [address], [place] [id number] Social History Tobacco Use Types Packs/Day Years [...] on filedocumented in this encounter Care Teams Special Service Officer Relationship Specialty Start Date End Date Shannan Jordan DO [address] [place] [address] PCP - General 12/10/16 10/31/22 documented as of this encounter
--- OUTSIDE RECORDS SUMMARY | 2025-01-08 18:10 | XMS_ITS | Encounter Summary ---
Author Organization [facility] Address [address] [place] [address] Phone Care Team Providers Care Dredge Mechanic Name Role Phone Shannan Jordan DO Primary Care Provider [phone] Encounter Details Date Type Department Care Team (Late st Contact Info) Description 09/30/2009 Documentation EM Family Medicine [address] [place] [address] Family Medicine, Physician [address], [place] [phone] Social History Tobacco Use Types Packs/Day Years [...] on filedocumented in this encounter Care Teams Dredge Mechanic Relationship Specialty Start Date End Date Shannan Jordan DO [address] [place] [address] PCP - General 12/10/16 10/31/22 documented as of this encounter
--- OUTSIDE RECORDS SUMMARY | 2025-01-08 18:10 | XMS_ITS | Encounter Summary ---
Author Organization [facility] Address [address] [place] [address] Phone Care Team Providers Care Communications Designer Name Role Phone Shannan Jordan DO Primary Care Provider [phone] Encounter Details Date Type Department Care Team (Late st Contact Info) Description 07/23/2011 Documentation EM Family Medicine [address] [place] [address] Family Medicine, Physician [address], [place] [phone] Social History Tobacco Use Types Packs/Day Years [...] on filedocumented in this encounter Care Teams Communications Designer Relationship Specialty Start Date End Date Shannan Jordan DO [address] [place] [address] PCP - General 12/10/16 10/31/22 documented as of this encounter
== END 2025-01-08 16:50 | disposition home or self-care (01) ==
LOC: HO.HMCH 16:05
PROVIDERS: PCP Internal Medicine; Visit Provider Internal Medicine
DX: Z00.00 Encounter for general adult medical examination without abnormal findings (principal); H92.03 Otalgia, bilateral

== ENCOUNTER → 2025-01-08 16:05 | Outpatient (BNVA) | payer OTHER, SELFPAY | PROVIDERS: PCP Internal Medicine; Visit Provider Internal Medicine | DX: Z00.00 Encounter for general adult medical examination without abnormal findings (principal); J30.9 Allergic rhinitis, unspecified; H92.09 Otalgia, unspecified ear; E55.9 Vitamin D deficiency, unspecified | CPT/HCPCS: 96127; 99212; 99395 ==

== ENCOUNTER 2025-01-09 11:17 | Outpatient (REF) | payer OTHER, SELFPAY ==
--- NOTE | ~2025-01-09 | US_ITS ---
EXAMINATION: US ABDOMEN LIMITED WITH LIVER ELASTOGRAPHY HISTORY: R74.01 - Elevation of levels of liver transaminase levels TECHNIQUE: Real-time grayscale ultrasound imaging of the right upper quadrant was performed and images were reviewed. COMPARISON: Comparison is made with the prior examination dated 08/04/2021. FINDINGS: Liver: The right lobe of the liver measures 13.2 cm in size. The left lobe of the liver measures 9.3 cm in size. The liver demonstrates normal homogeneous echotexture. No focal mass or intrahepatic biliary ductal dilatation is identified. There is normal hepatopedal flow in the portal vein. Ultrasound elastography of the liver was performed with 10 separate measurements of the liver parenchyma with the patient in the supine position. Measurements were obtained approximately 2 cm below Elizabeth's capsule and perpendicular to the capsule. The median shear wave velocity is 1.36 m/s. The interquartile range/median (IQR/median) is 0.12. Gallbladder and biliary tree: The gallbladder is unremarkable, without evidence of calculi, wall thickening, or pericholecystic fluid. There is no sonographic Flores sign. The common bile duct is normal in caliber measuring 2 mm. Right Kidney: The right kidney measures 9.5 cm in length. There is a 6 x 8 x 6 mm echogenic focus at the lower pole compatible with an angiomyolipoma. No calculi are identified. There is no hydronephrosis. Pancreas: The pancreatic head, neck, and body are unremarkable. The pancreatic tail is obscured by bowel gas. Abdominal aorta and inferior vena cava: The visualized portions of the abdominal aorta and inferior vena cava are normal in caliber. There is no free fluid in the right upper quadrant. US/US abdomen carreno w elastography IMPRESSION: 8 mm right renal angiomyolipoma. Otherwise unremarkable right upper quadrant ultrasound. The median shear wave velocity in the liver is 1.36 m/s, corresponding to a median liver stiffness of 5.55 kPa. The IQR/median value is 0.12. This is indicative of a quality data set. Findings are indicative of a low elastography value which rules out advanced chronic liver disease in asymptomatic patients. REFERENCE: Society of Radiologists in Ultrasound Liver Stiffness Thresholds (2020): LIVER STIFFNESS THRESHOLDS: *Shear wave velocity less than 1.3 m/s (Liver Stiffness equal or less than 5 kPa): High probability of being normal. *Shear wave velocity less than 1.7 m/s (Liver Stiffness less than 9 kPa): In the absence of other known clinical signs, rules out compensated advanced chronic liver disease. *Shear wave velocity between 1.7-2.1 m/s (Liver Stiffness 9-13 kPa): Suggestive of compensated advanced chronic liver disease but need further test for confirmation. *Shear wave velocity between 2.1-2.4 m/s (Liver Stiffness 13-17 kPa): Rules in compensated advanced chronic liver disease. *Shear wave velocity greater than 2.4 m/s (Liver Stiffness over 17 kPa): Suggestive of clinically significant portal hypertension. QUALITY OF DATA SET: *IQR/Median value equal or less than 0.15 implies a quality data set. *IQR/Median value over 0.15 implies a poor quality data set. SIGNIFICANT CHANGE FROM PRIOR EXAM: Significant change if liver stiffness measurement is 10% or greater from prior exam. OTHER CONSIDERATIONS: The stage of liver fibrosis may be overestimated in the setting of acute hepatitis, liver inflammation, elevated liver function tests, hepatic vascular congestion, obstructive cholestasis, non-fasting state, and infiltrative diseases such as amyloidosis and lymphoma. In some patients with NAFLD, the liver stiffness thresholds for compensated advanced chronic liver disease may be lower. In causes other than viral hepatitis and NAFLD, liver stiffness thresholds are not well established. Electronically signed by: Jian Dinero MD 01/09/2025 12:10 PM EDT
[2025-01-09 13:21] LABS: Alanine Aminotransferase 20 U/L (0-31); Albumin Level 4.9 g/dL (3.5-5.0); Alkaline Phosphatase 72 U/L (39-117); Anion Gap 11 (12-20); Aspartate Amino Transferase 22 U/L (5-31); Blood Urea Nitrogen 15 mg/dL (9-16); Calcium 9.4 mg/dL (8.4-10.2); Carbon Dioxide 26 mmol/L (22-29); Chloride 107 mmol/L (96-108); Cholesterol 161 mg/dL (<200); Estimated Glomerular Filt Rate > 60; HDL Cholesterol 64 mg/dL (>40); Potassium 4.2 mmol/L (3.3-5.1); Sodium 140 mmol/L (135-145); Total Protein 7.5 g/dL (6.5-8.0); Triglycerides 39 mg/dL (<150)
--- OUTSIDE RECORDS SUMMARY | 2025-01-09 14:26 | XMS_ITS | Encounter Summary ---
Author Organization [facility] Address [address] [place] [address] Phone Care Team Providers Care Laminate Floor Installer Name Role Phone Shannan Jordan DO Primary Care Provider [phone] Encounter Details Date Type Department Care Team (Late st Contact Info) Description 07/08/2009 Documentation EM Family Medicine [address] [place] [address] Family Medicine, Physician [address] [place], [place] [phone] Social History Tobacco Use Types Packs/Day Years [...] on filedocumented in this encounter Care Teams Laminate Floor Installer Relationship Specialty Start Date End Date Shannan Jordan DO [address] [place] [address] PCP - General 12/10/16 10/31/22 documented as of this encounter
--- OUTSIDE RECORDS SUMMARY | 2025-01-09 14:26 | XMS_ITS | Clinical Summary ---
Author Organization [facility] [address] [facility] Address [address] [place] [address] Phone Care Team Providers Care Nuisance Wildlife Trapper Name Role Phone Amelie Valentino MD Primary Care Provider [phone] Allergies Active Allergy Reactions Criticality Noted Date [...] Date depression 05/27/20222024 Overview (09/04/2024): Results of Mears Depression Scale (EPDS) Question #10. In the past 7 days, the thought of harming myself has occurred to me: Never EDPS Score: 10 EDPS Interpretation (Maximum Score:30): 10 or greater: Possible Depression. Surgical History Surgery Date Site/Laterality Comments OTHER SURGICAL HISTORY 01/21/2023 PROCEDURE: NE DILATION & CURETTAGE DX&/THER NONOBSTETRIC; COMMENT: Pathology Benign Medical History Medical History Date Comments Mixed anxiety and depressive disorder DX:Mixed anxiety and depress tamiko disorder depression 05/27/2022 Results of Mears Depression Scale (EPDS) Question #10. In the [...] General Categorization Negative 09/06/2024 4:20 PM EDT [facility] LMP 08/30/2024 09/06/2024 4:20 PM [...] Technical cytopathology services provided by [facility], at [address] [place] [id number] (CLIA # [id number]/Alexsander Osorio MD, Engine Lathe Operator.) 09/06/2024 4:20 PM EDT [facility] Console Pap Interpretation Reported 09/06/2024 4:20 PM EDT [facility] Brushing/Spatula Cervix uteri structure / Unknown 09/04/2024 2:52 PM EDT 09/04/2024 2:52 PM EDT Abdoul George [facility] CYTOLOGY ORDERABLES Final Result [facility] [address] [place] [address], from Last 3 Months or Most Recently Relevant to Health Maintenance Insurance [facility] [employer] Care Teams Nuisance Wildlife Trapper Relationship Specialty Start Date End Date Amelie Valentino MD [address] [facility] , [address] [facility] Internal Medicine [place], [place] PCP - General 05/06/22
--- OUTSIDE RECORDS SUMMARY | 2025-01-09 14:26 | XMS_ITS | Encounter Summary ---
Author Organization [facility] Address [address] [place] [address] Phone Care Team Providers Care Trim Mounter Name Role Phone Shannan Jordan DO Primary Care Provider [phone] Encounter Details Date Type Department Care Team (Late st Contact Info) Description 09/30/2009 Documentation EM Family Medicine [address] [place] [address] Family Medicine, Physician [address], [place] [phone] Social History Tobacco Use Types Packs/Day Years [...] on filedocumented in this encounter Care Teams Trim Mounter Relationship Specialty Start Date End Date Shannan Jordan DO [address] [place] [address] PCP - General 12/10/16 10/31/22 documented as of this encounter
--- OUTSIDE RECORDS SUMMARY | 2025-01-09 14:26 | XMS_ITS | Encounter Summary ---
Author Organization [facility] Address [address] [place] [address] Phone Care Team Providers Care Clinical Analyst Name Role Phone Shannan Jordan DO Primary Care Provider [phone] Encounter Details Date Type Department Care Team (Late st Contact Info) Description 07/23/2011 Documentation EM Family Medicine [address] [place] [address] Family Medicine, Physician [address], [place] [phone] Social History Tobacco Use Types Packs/Day Years [...] filedocumented in this encounter Care Teams Clinical Analyst Relationship Specialty Start Date End Date Shannan Jordan DO [address] [place] [address] PCP - General 12/10/16 10/31/22 documented as of this encounter
--- OUTSIDE RECORDS SUMMARY | 2025-01-09 14:26 | XMS_ITS | Encounter Summary ---
Author Organization [facility] Address [address] [place] [address] Phone Care Team Providers Care Cash Specialist Name Role Phone Shannan Jordan DO Primary Care Provider [phone] Encounter Details Date Type Department Care Team (Late st Contact Info) Description 07/08/2009 Documentation EM Family Medicine [address] [place] [address] Family Medicine, Physician [address] [place], [place] [phone] Social History Tobacco Use Types Packs/Day Years [...] on filedocumented in this encounter Care Teams Cash Specialist Relationship Specialty Start Date End Date Shannan Jordan DO [address] [place] [address] PCP - General 12/10/16 10/31/22 documented as of this encounter
--- OUTSIDE RECORDS SUMMARY | 2025-01-09 14:26 | XMS_ITS | Encounter Summary ---
Author Organization [facility] Address [address] [place] [address] Phone Care Team Providers Care Transfer Man Name Role Phone Shannan Jordan DO Primary Care Provider [phone] Encounter Details Date Type Department Care Team (Late st Contact Info) Description 12/16/2016 Conversion Encounter [facility] [place] [address] [place] [address] Social History Tobacco Use Types Packs/Day Years [...] on filedocumented in this encounter Care Teams Transfer Man Relationship Specialty Start Date End Date Shannan Jordan DO [address] [place] [address] PCP - General 12/10/16 10/31/22 documented as of this encounter
--- OUTSIDE RECORDS SUMMARY | 2025-01-09 14:26 | XMS_ITS | Encounter Summary ---
Author Organization [facility] Address [address] [place] [address] Phone Care Team Providers Care Cut And Print Machine Operator Name Role Phone Shannan Jordan DO Primary Care Provider [phone] Encounter Details Date Type Department Care Team (Late st Contact Info) Description 05/31/2012 Documentation EM Family Medicine [address] [place] [address] Family Medicine, Physician [address] [place], [place] [phone] Social History Tobacco Use Types Packs/Day Years [...] on filedocumented in this encounter Care Teams Cut And Print Machine Operator Relationship Specialty Start Date End Date Shannan Jordan DO [address] [place] [address] PCP - General 12/10/16 10/31/22 documented as of this encounter
--- OUTSIDE RECORDS SUMMARY | 2025-01-09 14:26 | XMS_ITS | Encounter Summary ---
Author Organization [facility] Address [address] [place] [address] Phone Care Team Providers Care Community Center Worker Name Role Phone Shannan Jordan DO Primary Care Provider [phone] Encounter Details Date Type Department Care Team (Late st Contact Info) Description 05/16/2013 Documentation EM Family Medicine [address] [place] [address] Family Medicine, Physician [address], [place] [phone] Social History Tobacco Use Types Packs/Day Years [...] on filedocumented in this encounter Care Teams Community Center Worker Relationship Specialty Start Date End Date Shannan Jordan DO [address] [place] [address] PCP - General 12/10/16 10/31/22 documented as of this encounter
--- OUTSIDE RECORDS SUMMARY | 2025-01-09 14:26 | XMS_ITS | Clinical Summary ---
Author Organization [facility] Address [address] [place] [address] Phone Care Team Providers Care Community Service Officer Coordinator Name Role Phone Unavailable Primary Care Provider [...] complete this topic Procedures * Due to [place] state law, this organization might not be sharing sensitive test results. Procedure Name Priority Date/Time Associated Diagnosis Comments CHLAMYDIA AND GONORRHEA, AMPLIFIED Routine 11/19/2014 2:18 PM EDT from Last 3 Months or Most Recently Relevant to Health Maintenance Results * Due to [place] state law, this organization might not be sharing sensitive test results. * Chlamydia and Gonorrhoea, Amplified (11/19/2014 2:18 PM EDT) URINE GC AMP PROBE NEGATIVE [facility] Comment: No Neisseria Gonorrhoeae RNA detected in this patient's sample (REFERENCE RANGE/NORMAL VALUE: NOT DETECTED) NOTE: This test uses oven dauber-mediated amplification method to detect rRNA from C.Trachomatis [...] without risk of sexual abuse. Consult the [facility] [place] if needed. Contact phone number . Therapeutic failure or success cannot be determined with the Aptima Combo2 assay since nucleic acid may persist following appropriate antimicrobial therapy. The Centers for Disease Control and Prevention (CDC) recommends confirmatory retesting using culture or a different nucleic acid amplification test when positive results occur, if indicated. Testing performed or reported by [facility], a Service of [facility], [address] [place] [address] Bernard Duke MD, PhD, Data Capture Clerk URINE CHLAMYDIA AMP PROBE NEGATIVE [facility] Comment: No Chlamydia Trachomatis RNA detected in this patient's sample (REFERENCE RANGE/NORMAL VALUE: NOT DETECTED) 11/19/2014 2:18 PM EDT Narrative [facility] - 11/19/2014 2:18 PM EDT URINE CHLAMYDIA GC AMP PROBE us Adrianna Alicia NP LAB MICROBIOLOGY - GENERAL OR DERABLES Final Result [facility] [address] [place] [id number], from Last 3 Months or Most Recently Relevant to Health Maintenance
--- OUTSIDE RECORDS SUMMARY | 2025-01-09 14:26 | XMS_ITS | Encounter Summary ---
Author Organization [facility] Address [address] [place] [address] Phone Care Team Providers Care Centrifugal Drier Operator Name Role Phone Shannan Jordan DO Primary Care Provider [phone] Encounter Details Date Type Department Care Team (Late st Contact Info) Description 07/23/2011 Documentation EM Family Medicine [address] [place] [address] Family Medicine, Physician [address], [place] [phone] Social History Tobacco Use Types Packs/Day Years [...] on filedocumented in this encounter Care Teams Centrifugal Drier Operator Relationship Specialty Start Date End Date Shannan Jordan DO [address] [place] [address] PCP - General 12/10/16 10/31/22 documented as of this encounter
--- OUTSIDE RECORDS SUMMARY | 2025-01-09 14:26 | XMS_ITS | Encounter Summary ---
Author Organization [facility] Address [address] [place] [address] Phone Care Team Providers Care Forepart Rounder Name Role Phone Shannan Jordan DO Primary Care Provider [phone] Encounter Details Date Type Department Care Team (Late st Contact Info) Description 08/03/2010 Documentation EM Family Medicine [address] [place] [address] Family Medicine, Physician [address], [place] [phone] Social History Tobacco Use Types Packs/Day Years [...] on filedocumented in this encounter Care Teams Forepart Rounder Relationship Specialty Start Date End Date Shannan Jordan DO [address] [place] [address] PCP - General 12/10/16 10/31/22 documented as of this encounter
--- OUTSIDE RECORDS SUMMARY | 2025-01-09 14:26 | XMS_ITS | Encounter Summary ---
Author Organization [facility] Address [address] [place] [address] Phone Care Team Providers Care Insulation Extruder Operator Name Role Phone Shannan Jordan DO Primary Care Provider [phone] Encounter Details Date Type Department Care Team (Late st Contact Info) Description 07/09/2009 Documentation EM Family Medicine [address] [place] [address] Family Medicine, Physician [address] [place], [place] [phone] Social History Tobacco Use Types Packs/Day Years [...] on filedocumented in this encounter Care Teams Insulation Extruder Operator Relationship Specialty Start Date End Date Shannan Jordan DO [address] [place] [address] PCP - General 12/10/16 10/31/22 documented as of this encounter
== END 2025-01-09 11:18 | disposition home or self-care (01) ==
LOC: HO.US 11:17
PROVIDERS: PCP Internal Medicine; Visit Provider Internal Medicine
DX: Z00.00 Encounter for general adult medical examination without abnormal findings (principal); R74.01 Elevation of levels of liver transaminase levels; E55.9 Vitamin D deficiency, unspecified
CPT/HCPCS: 36415; 76705; 76981; 80053; 80061; 82306

== ENCOUNTER → 2025-01-09 11:21 | Outpatient (BNV) | payer OTHER, SELFPAY | PROVIDERS: PCP Internal Medicine; Visit Provider Radiology Diagnostic Radiology | DX: D17.71 Benign lipomatous neoplasm of kidney (principal) | CPT/HCPCS: 76705 ==